=== PATIENT | female | born 1970 | race Caucasian/White ===

== ENCOUNTER → 2016-06-16 | Outpatient (CLI) | payer OTHER ==
--- NOTE | 2016-06-16 22:22 | MR ---
EXAMINATION TYPE: MR lumbar spine wo con DATE OF EXAM: 06/16/2016 7:26 PM COMPARISON: 12/07/2012 HISTORY: Low Back Pain TECHNIQUE: T1 and T2 axial and sagittal images of the lumbar spine are submitted. FINDINGS: There is no abnormal signal seen within the visualized spinal cord or paraspinal soft tissu es. Stable appearing renal cysts. Mild hydronephrosis not excluded in the left. Nonobstructing renal calculi not excluded and had been present by previous CT scan dated 12/22/2015. Posterior subcutaneous tissue suggests stable appearing small soft tissue lipoma. At L1-L2 no disc herniation or canal stenosis. No foraminal encroachment. L2-L3-there is now mild disc desiccation. Mild hypertrophic change of the facets. There is mild circu mferential disc bulging but no canal stenosis or foraminal encroachment.. L3-L4- Mild to moderate decreased signal and loss of height compatible with degenerative disc disease. No significant disc bulge/herniation or protrusion. No evidence for canal stenosis. Degenerative endplate marrow change is appreciated. Hypertrophic change of the facet joints bilateral foraminal encroachment. L4-L5- Mild to moderate decreased signal and loss of height compatible with degenerative disc disease. Small posterior annular tear without herniation. No disc protrusion or canal stenosis. Facet arthropathy joint arthropathy without foraminal encroachment. L5-S1- Moderate to severe decreased signal and loss of height compatible with degenerative disc disease. Disc bulging with mild effacement ventral thecal sac is stable. No evidence for canal stenosis or recess stenosis. Visualized foramina demonstrate mild bilateral foraminal encroachment.. Discogenic marrow changes secondary to severe degenerative disc disease. Facet arthropathy noted. IMPRESSION: 1. Multilevel degenerative disc disease with severe changes at L5-S1. 2. Multilevel facet arthropathy. 3. Bilateral renal axillae. 4. No disc herniation or canal stenosis at any of the visualized levels.
== END | disposition home or self-care (01) ==
LOC: RADMRIMAIN 18:45
PROVIDERS: ATTEND Nurse Practitioner Acute Care
DX: M54.5 Low back pain (principal); M51.36 Other intervertebral disc degeneration, lumbar region; M46.90 Unspecified inflammatory spondylopathy, site unspecified
CPT/HCPCS: 72148

== ENCOUNTER 2016-10-27 13:00 | Emergency (ER) | payer OTHER ==
[2016-10-27 13:06] VITALS: BP 120/70; PULSE 105; RESP 18; TEMP 98.3
--- NOTE | 2016-10-27 13:37 | ED ---
General Adult HPI - General Chief complaint: Back Pain/Injury Stated complaint: Low back pain Time Seen by Provider: 10/27/16 13:18 Source: patient, RN notes reviewed Mode of arrival: ambulatory Limitations: no limitations - History of Present Illness Initial comments: 46-year-old female who presents emergency room today with a chief complaint of increased tailbone pain. Patient does state that she had some symptoms which she had pilonidal cyst in the past. States she does not feel a bump or lump in the area. States been ongoing over the last month. Does admit to history of chronic back pain does admit that she had recent MRI. Denies any bowel or bladder incontinence retention. Denies any other complaints or symptoms. Does admit that it's worse when she sitting. States been using a pillow for comfort. - Related Data Home Medications Medication Instructions Recorded Confirmed Gabapentin [Neurontin] 300 mg PO QAM 10/18/13 04/03/16 Ibuprofen [Motrin] 800 mg PO Q8HR PRN 10/18/13 04/03/16 LORazepam [Ativan] 2 mg PO TID 10/18/13 04/03/16 Ranitidine HCl [Zantac] 150 mg PO BID 10/18/13 04/03/16 Simvastatin [Zocor] 40 mg PO HS 10/18/13 04/03/16 Lacosamide [Vimpat] 100 mg PO BID 01/16/14 04/03/16 Albuterol Inhaler [Ventolin Hfa 1 - 2 puff INHALATION RT-Q6H PRN 04/03/16 Inhaler] Beclomethasone Dipropionate [Qvar 2 puff INHALATION RT-BID 04/03/16 04/03/16 40 mcg] DULoxetine HCL [Cymbalta] 30 mg PO HS 04/03/16 04/03/16 Divalproex ER [Depakote ER] 1,000 mg PO HS 04/03/16 04/03/16 Divalproex ER [Depakote ER] 500 mg PO QAM 04/03/16 04/03/16 Fenofibrate 160 mg PO HS 04/03/16 04/03/16 Gabapentin [Neurontin] 600 mg PO HS 04/03/16 04/03/16 Hydrocodone/Acetaminophen [[place] 1 tab PO BID PRN 04/03/16 04/03/16 5-325] Insulin Detemir [Levemir] 136 unit SQ HS 04/03/16 04/03/16 Lisinopril-Hctz 10-12.5 mg 1 tab PO DAILY 04/03/16 04/03/16 [Zestoretic 10-12.5] Niacin [Niacin ER] 500 mg PO QAM PRN 04/03/16 04/03/16 Topiramate [Topamax] 200 mg PO BID 04/03/16 04/03/16 metFORMIN HCL [metFORMIN HCL ER] 1,000 mg PO BID 04/03/16 04/03/16 Allergies Allergy/AdvReac Type Severity Reaction Status Date / Time sulfamethoxazole Allergy Unknown Verified 10/27/16 13:06 [From Bactrim] trimethoprim [From Bactrim] Allergy Unknown Verified 10/27/16 13:06 metoclopramide HCl AdvReac Confusion Verified 10/27/16 13:06 [From Reglan] Review of Systems ROS Statement: Those systems with pertinent positive or pertinent negative responses have been documented in the HPI. ROS Other: All systems not noted in ROS Statement are negative. Past Medical History Past Medical History: Diabetes Mellitus, GERD/Reflux, Hyperlipidemia, Seizure Disorder Additional Past Medical History / Comment(s): neck, back pain, neuropathy, migraines History of Any Multi-Drug Resistant Organisms: None Reported Past Surgical History: Appendectomy, Tubal Ligation Past Psychological History: Depression Smoking Status: Current every day smoker Past Alcohol Use History: None Reported Past Drug Use History: None Reported General Exam - General Exam Comments Initial Comments: General: The patient is awake and alert, in no distress, and does not appear acutely ill. Eye: Pupils are equal, round and reactive to light, extra-ocular movements are intact. No nystagmus. There is normal conjunctiva bilaterally. No signs of icterus. Ears, nose, mouth and throat: There are moist mucous membranes and no oral lesions. Neck: The neck is supple, there is no tenderness or JVD. Cardiovascular: There is a regular rate and rhythm. No murmur, rub or gallop is appreciated. Respiratory: Lungs are clear to auscultation, respirations are non-labored, breath sounds are equal. No wheezes, stridor, rales, or rhonchi. Gastrointestinal: Soft, non-distended, non-tender abdomen without masses or organomegaly noted. There is no rebound or guarding present. No CVA tenderness. Bowel sounds are unremarkable. Musculoskeletal: Normal ROM, no tenderness. Strength 5/5. Sensation intact. Pulses equal bilaterally 2+. Neurological: A&O x 3. CN II-XII intact, There are no obvious motor or sensory deficits. Coordination appears grossly intact. Speech is normal. Skin: Skin is warm and dry and no rashes or lesions are noted. Psychiatric: Cooperative, appropriate mood & affect, normal judgment. : METAL TURNER cc present for exam. Normal external rectal exam no signs of pilonidal cyst. Limitations: no limitations Course Vital Signs 10/27/16 13:03 Temperature 98.3 F Pulse Rate 105 H Respiratory 18 Rate Blood Pressure 120/70 O2 Sat by Pulse 97 Oximetry Disposition Clinical Impression: Chronic back pain Disposition: HOME SELF-CARE Condition: Good Instructions: Chronic Back Pain (ED) Additional Instructions: Please use ice/heat to the area as discussed. Please continue with Starford/ ibuprofen as discussed. Please follow-up with your back specialist along with the family doctor. Please return to emergency room symptoms increase or worsen or for any other concerns. Referrals: Rhiannon Hsieh MD [Primary Care Provider] - 1-2 days Time of Disposition: 13:36
== END 2016-10-27 13:49 | disposition home or self-care (01) ==
LOC: EC 13:00
DX: M54.5 Low back pain (principal); G89.29 Other chronic pain; E78.5 Hyperlipidemia, unspecified; E11.40 Type 2 diabetes mellitus with diabetic neuropathy, unspecified; G40.909 Epilepsy, unspecified, not intractable, without status epilepticus; K21.9 Gastro-esophageal reflux disease without esophagitis; F32.9 Major depressive disorder, single episode, unspecified; F17.200 Nicotine dependence, unspecified, uncomplicated; Z88.2 Allergy status to sulfonamides; Z88.8 Allergy status to other drugs, medicaments and biological substances; Z79.4 Long term (current) use of insulin; Z79.51 Long term (current) use of inhaled steroids; Z79.84 Long term (current) use of oral hypoglycemic drugs; Z79.899 Other long term (current) drug therapy
CPT/HCPCS: 99283

== ENCOUNTER → 2016-11-04 | Outpatient (CLI) | payer OTHER | LOC: CPPFTMAIN 13:21 | PROVIDERS: ATTEND Family Medicine | DX: J45.909 Unspecified asthma, uncomplicated (principal) | CPT/HCPCS: 94060; 94726; 94729 ==

== ENCOUNTER → 2017-03-08 | Outpatient (CLI) | payer OTHER ==
--- NOTE | 2017-03-08 10:32 | NM ---
Nuclear medicine hepatobiliary scan. HISTORY: Pain. DOSAGE: The patient received 8 ounces of ensure plus and 5.2 mCi of Technetium 99m Choletec. FINDINGS: There is normal hepatic extraction. The gallbladder is seen by 25 minutes. There is bilia ry to bowel clearance by 20 minutes. Ejection fraction is 51%. IMPRESSION: 1. Normal hepatobiliary exam
== END | disposition home or self-care (01) ==
LOC: RADNMMAIN 07:03
PROVIDERS: ATTEND Family Medicine
DX: R10.11 Right upper quadrant pain (principal); Z88.2 Allergy status to sulfonamides; Z88.8 Allergy status to other drugs, medicaments and biological substances
CPT/HCPCS: 78226; A9537

== ENCOUNTER → 2017-08-01 | Outpatient (CLI) | payer OTHER ==
[2017-08-01 13:04] LABS: Anisocytosis Slight; Basophils # (A) 0.1 k/uL (0-0.2); Basophils % (A) 1 %; Eosinophils # (A) 0.5 k/uL (0-0.7); Eosinophils % (A) 4 %; HCT 38.1 % (34.0-46.0); HGB 12.1 gm/dL (11.4-16.0); Hypochromasia Slight; Lymphocytes # (A) 4.4 k/uL (1.0-4.8); Lymphocytes % (A) 34 %; MCH 24.9 pg (25.0-35.0); MCHC 31.8 g/dL (31.0-37.0); MCV 78.2 fL (80.0-100.0); Mean Platelet Volume 7.3; Microcytosis Slight; Monocytes # (A) 0.6 k/uL (0-1.0); Monocytes % (A) 5 %; Neutrophils # (A) 6.9 k/uL (1.3-7.7); Neutrophils % (A) 54 %; Platelet Count 348 k/uL (150-450); RBC 4.87 m/uL (3.80-5.40); RDW 16.1 % (11.5-15.5); WBC 12.9 k/uL (3.8-10.6)
[2017-08-01 13:16] LABS: ALT 21 U/L (9-52); AST 12 U/L (14-36); Albumin 3.7 g/dL (3.5-5.0); Alkaline Phosphatase 66 U/L (38-126); Anion Gap 14 mmol/L; Blood Urea Nitrogen 16 mg/dL (7-17); Calcium 9.6 mg/dL (8.4-10.2); Carbon Dioxide 24 mmol/L (22-30); Chloride 103 mmol/L (98-107); Cholesterol 161 mg/dL (<200); Glucose 112 mg/dL (74-99); HDL Cholesterol 33 mg/dL (40-60); LDL Cholesterol,Calculated 63 mg/dL (0-99); Potassium 4.2 mmol/L (3.5-5.1); Sodium 141 mmol/L (137-145); Total Bilirubin 0.2 mg/dL (0.2-1.3); Total Protein 6.9 g/dL (6.3-8.2); Triglycerides 325 mg/dL (<150)
== END | disposition home or self-care (01) ==
LOC: LABMAIN 12:27
PROVIDERS: ATTEND Family Medicine
DX: K21.9 Gastro-esophageal reflux disease without esophagitis (principal); I10 Essential (primary) hypertension; E11.9 Type 2 diabetes mellitus without complications; G40.89 Other seizures
CPT/HCPCS: 36415; 80053; 80061; 85025

== ENCOUNTER 2018-03-29 01:39 | Emergency (ER) | payer OTHER ==
[2018-03-29 01:44] VITALS: TEMP 97.9
[2018-03-29] MEDS ORDERED: diphenhydrAMINE 50 MG/ML 1 ML VIAL IVP STA (02:46)
[2018-03-29] MEDS ORDERED: KETOROLAC 30 MG/ML 1 ML VIAL IVP STA (02:46)
[2018-03-29] MEDS ORDERED: ONDANSETRON 4 MG/2 ML VIAL IVP STA (02:46)
--- NOTE | 2018-03-29 03:33 | ED ---
General Adult HPI - General Source: patient Mode of arrival: ambulatory Limitations: no limitations <Mariza Wren - Last Filed: 04/01/18 15:28> <Elizabeth Dowell - Last Filed: 04/07/18 00:30> - General Chief complaint: Headache Stated complaint: Migraine, nausea - History of Present Illness Initial comments: 48yo female with history of chronic migraines presenting today for cc of migraine on and off x 8 days. Pt states that about 8 days ago she began experiencing one her typical migraines, she states it last for a few days, she took excedrin on day 4 that her friend gave her and she states that this took the headache away. Pt states that 3 days later the headache returned and remains. She states when she gets migraines she often experiences nausea, photophobia and sensitivity to sounds. Admits to these symptoms today. Pt describes headache as 10/10 throbbing pain behind both eyes, stretching toward back of head. She states headache came on gradually, denies sudden on set, trauma to head/neck, or this being worst headache of life. Denies visual changes , neck stiffness, fever, chills or night sweats. Pt has not taken another other medications since excedrin. Upon triage pt admitted to vomiting, denied vomiting on history taking. Remainder of ROS (-). Pt appears uncomfortable, however nontoxic upon arrival. Ambulating without difficulty. (Mariza Wren) - Related Data Home Medications Medication Instructions Recorded Confirmed Gabapentin [Neurontin] 300 mg PO BID 10/18/13 04/04/18 Lacosamide [Vimpat] 100 mg PO BID 01/16/14 04/04/18 Albuterol Inhaler [Ventolin Hfa 1 - 2 puff INHALATION RT-Q6H PRN 04/03/16 Inhaler] Beclomethasone Dipropionate [Qvar 2 puff INHALATION RT-BID 04/03/16 04/04/18 40 mcg] DULoxetine HCL [Cymbalta] 90 mg PO HS 04/03/16 04/04/18 Divalproex ER [Depakote ER] 500 mg PO BID 04/03/16 04/04/18 Fenofibrate 160 mg PO HS 04/03/16 04/04/18 Furosemide [Lasix] 40 mg PO DAILY 04/04/18 04/04/18 Hydrocodone/Acetaminophen [[place] 1 tab PO Q8H PRN 04/04/18 04/04/18 10-325] Insulin Glargine [Lantus] 70 unit SQ BID 04/04/18 04/04/18 LORazepam [Ativan] 1 mg PO TID PRN 04/04/18 04/04/18 Omeprazole [PriLOSEC] 40 mg PO DAILY 04/04/18 04/04/18 Potassium Chloride [Klor-Con 10] 10 meq PO DAILY 04/04/18 04/04/18 SUMAtriptan SUCCINATE [Imitrex] 100 mg PO BID PRN MDD 200 MG 04/04/18 04/04/18 Topiramate [Topamax] 100 mg PO BID 04/04/18 04/04/18 glipiZIDE [Glucotrol] 20 mg PO AC-BID 04/04/18 04/04/18 hydrALAZINE HCL [Apresoline] 25 mg PO BID 04/04/18 04/04/18 metFORMIN HCL 1,000 mg PO BID 04/04/18 04/04/18 Allergies Allergy/AdvReac Type Severity Reaction Status Date / Time sulfamethoxazole Allergy Unknown Verified 04/04/18 07:08 [From Bactrim] trimethoprim [From Bactrim] Allergy Unknown Verified 04/04/18 07:08 metoclopramide HCl AdvReac Confusion Verified 04/04/18 07:08 [From Reglan] Review of Systems ROS Other: All systems not noted in ROS Statement are negative. Constitutional: Denies: fever, chills, night sweats Eyes: Denies: eye pain, vision change ENT: Denies: hearing loss Respiratory: Denies: cough, dyspnea, wheezes Cardiovascular: Denies: chest pain Gastrointestinal: Reports: nausea. Denies: abdominal pain, vomiting, diarrhea, constipation, hematemesis Genitourinary: Denies: urgency Musculoskeletal: Denies: back pain Skin: Denies: rash Neurological: Reports: headache. Denies: weakness, numbness, paresthesias, confusion <Mariza Wren L - Last Filed: 04/01/18 15:28> ROS Other: All systems not noted in ROS Statement are negative. <Elizabeth Dowell P - Last Filed: 04/07/18 00:30> ROS Statement: Those systems with pertinent positive or pertinent negative responses have been documented in the HPI. Past Medical History Past Medical History: Diabetes Mellitus, GERD/Reflux, Hyperlipidemia, Seizure Disorder Additional Past Medical History / Comment(s): neck, back pain, neuropathy, migraines History of Any Multi-Drug Resistant Organisms: None Reported Past Surgical History: Appendectomy, Tubal Ligation Past Psychological History: Depression Smoking Status: Current every day smoker Past Alcohol Use History: None Reported Past Drug Use History: None Reported <Mariza Wren L - Last Filed: 04/01/18 15:28> General Exam Limitations: no limitations <Mariza Wren L - Last Filed: 04/01/18 15:28> <Elizabeth Dowell P - Last Filed: 04/07/18 00:30> - General Exam Comments Initial Comments: General: The patient is awake and alert, in no distress, and does not appear acutely ill. Eye: +3 mm pupils are equal, round and reactive to light, extra-ocular movements are intact. No APD. No nystagmus. There is normal conjunctiva bilaterally. No signs of icterus. Ears, nose, mouth and throat: There are moist mucous membranes and no oral lesions. Neck: The neck is supple, there is no tenderness or JVD. (-) Brudskinski and Kernig signs, no nuchal rigidity. Cardiovascular: There is a regular rate and rhythm. No murmur, rub or gallop is appreciated. Respiratory: Lungs are clear to auscultation, respirations are non-labored, breath sounds are equal. No wheezes, stridor, rales, or rhonchi. Musculoskeletal: Normal ROM, no tenderness. Strength 5/5 of the UE and LE equally b/l. Sensation intact of the UE and LE equally b/l. Radial Pulses equal bilaterally 2+. Neurological: A&O x 3. CN II-XII intact, There are no obvious motor or sensory deficits. Coordination appears grossly intact. Pt ambulates without difficulty. Speech is normal. Hand flap and toe tap coordinated. No pronator drift. Finger to nose coordinated and smooth. Memory intact, immediate, intermediate and assisted. Skin: Skin is warm and dry and no rashes or lesions are noted. Psychiatric: Cooperative, appropriate mood & affect, normal judgment. (Mariza Wren) Course <Mariza Wren - Last Filed: 04/01/18 15:28> <Elizabeth Dowell - Last Filed: 04/07/18 00:30> Vital Signs 03/29/18 03/29/18 01:42 03:34 Temperature 97.9 F Pulse Rate 115 H 89 Respiratory 18 16 Rate Blood Pressure 152/84 111/74 O2 Sat by Pulse 98 96 Oximetry - Reevaluation(s) Reevaluation #1: Following treatment, pt state she is ready for discharge, headache 100% relieved. Pt expressing how thankful she is for relief. (Mariza Wren) Medical Decision Making <Mariza Wren - Last Filed: 04/01/18 15:28> <Elizabeth Dowell - Last Filed: 04/07/18 00:30> - Medical Decision Making No focal neurological deficits. Pt describes headache as similar in characteristic to chronic migraine. Onset gradual, no trauma. Denies worst headache of life. Pt given migraine cocktail. Upon reevaluation, pt states symptoms 100 relieved and requesting discharge. At this time I feel pt is stable for discharge,with primary care f/u. Pt state she has an appointment set up with her neurologist tmrw. I instructed her to keep appointment. Return parameters discussed at length with patient who verbalized understanding. Pt discharged in stable condition following discussion of case with attending provider, Dr. Dowell who agreed with impression and plan. (Mariza Wren) I was available for consultation in the emergency department. The history and physical exam were done by the midlevel provider. I was consulted for this patient's care. I reviewed the case with the midlevel provider and based on their presentation of the patient, I agree with the assessment, medical decision making and plan of care as documented. (Elizabeth Dowell) Disposition Is patient prescribed a controlled substance at d/c from ED?: No Time of Disposition: 03:33 <Mariza Wren - Last Filed: 04/01/18 15:28> <Elizabeth Dowell - Last Filed: 04/07/18 00:30> Clinical Impression: Migraine Disposition: HOME SELF-CARE Condition: Good Instructions: Acute Headache (ED) Additional Instructions: Please use medication as discussed. Please follow-up with family doctor in the next 2 days, and neurologist tmrw as scheduled. Please return to emergency room if the symptoms increase or worsen or for any other concerns. Referrals: Adriel Lima Jr, DO [Primary Care Provider] - 1-2 days Sia Siddiqui MD [STAFF PHYSICIAN] - 1-2 days
[2018-03-29 03:42] VITALS: BP 111/74; PULSE 89; RESP 16
== END 2018-03-29 03:35 | disposition home or self-care (01) ==
LOC: EC 01:39
DX: G43.909 Migraine, unspecified, not intractable, without status migrainosus (principal); E11.40 Type 2 diabetes mellitus with diabetic neuropathy, unspecified; K21.9 Gastro-esophageal reflux disease without esophagitis; E78.5 Hyperlipidemia, unspecified; G40.909 Epilepsy, unspecified, not intractable, without status epilepticus; F32.9 Major depressive disorder, single episode, unspecified; F17.200 Nicotine dependence, unspecified, uncomplicated; Z79.51 Long term (current) use of inhaled steroids; Z79.84 Long term (current) use of oral hypoglycemic drugs; Z79.899 Other long term (current) drug therapy; Z88.2 Allergy status to sulfonamides; Z88.8 Allergy status to other drugs, medicaments and biological substances
CPT/HCPCS: 99283; 96374; 96375 ×2; J1200; J2405; J1885

== ENCOUNTER 2018-04-02 05:49 | Emergency (ER) | payer OTHER ==
[2018-04-02 05:57] VITALS: RESP 20; TEMP 99.8
[2018-04-02] MEDS ORDERED: SODIUM CHLORIDE 0.9% 1,000 ML IV ONE (06:15)
[2018-04-02] MEDS ORDERED: ALBUTEROL NEBULIZED 2.5 MG/3 ML INHALATION STA (06:15)
--- NOTE | 2018-04-02 06:26 | ED ---
General Adult HPI - General Chief complaint: ENT Stated complaint: ENT-flu symptoms Time Seen by Provider: 04/02/18 06:09 Source: patient, family Mode of arrival: wheelchair Limitations: no limitations - History of Present Illness Initial comments: This patient is a 48-year-old woman who presents to be evaluated for complaint of dyspnea, cough, and not feeling well. The patient states symptoms have been coming on over the past day to 2. Cough is not productive. She has also felt hot and cold but has not taken her temperature. Onset/Timin -: days(s) Improves with: none Worsens with: none Associated Symptoms: cough, fever/chills, shortness of breath Treatments Prior to Arrival: none - Related Data Home Medications Medication Instructions Recorded Confirmed Gabapentin [Neurontin] 300 mg PO BID 10/18/13 04/04/18 Lacosamide [Vimpat] 100 mg PO BID 01/16/14 04/04/18 Beclomethasone Dipropionate [Qvar 2 puff INHALATION RT-BID 04/03/16 04/04/18 40 mcg] DULoxetine HCL [Cymbalta] 90 mg PO HS 04/03/16 04/04/18 Divalproex ER [Depakote ER] 500 mg PO BID 04/03/16 04/04/18 Fenofibrate 160 mg PO HS 04/03/16 04/04/18 Furosemide [Lasix] 40 mg PO DAILY 04/04/18 04/04/18 Hydrocodone/Acetaminophen [[place] 1 tab PO Q8H PRN 04/04/18 04/04/18 10-325] Insulin Glargine [Lantus] 70 unit SQ BID 04/04/18 04/04/18 LORazepam [Ativan] 1 mg PO TID PRN 04/04/18 04/04/18 Omeprazole [PriLOSEC] 40 mg PO DAILY 04/04/18 04/04/18 Potassium Chloride [Klor-Con 10] 10 meq PO DAILY 04/04/18 04/04/18 SUMAtriptan SUCCINATE [Imitrex] 100 mg PO BID PRN MDD 200 MG 04/04/18 04/04/18 Topiramate [Topamax] 100 mg PO BID 04/04/18 04/04/18 hydrALAZINE HCL [Apresoline] 25 mg PO BID 04/04/18 04/04/18 metFORMIN HCL 1,000 mg PO BID 04/04/18 04/04/18 Previous Rx's Medication Instructions Recorded Levofloxacin [Levaquin] 500 mg PO DAILY #7 tab 04/08/18 Oseltamivir [Tamiflu] 75 mg PO Q12HR #10 cap 04/08/18 Albuterol Inhaler [Ventolin Hfa 2 puff INHALATION RT-Q6H PRN #1 04/09/18 Inhaler] puff Atorvastatin [Lipitor] 80 mg PO HS #30 tab 04/09/18 Insulin Lispro [Admelog] 100 unit SQ ACHS #3 pen 04/09/18 Lisinopril-Hctz 10-12.5 mg 1 each PO DAILY #30 tab 04/09/18 [Zestoretic 10-12.5] guaiFENesin [Mucinex] 1,200 mg PO Q12HR #20 tablet.er 04/09/18 predniSONE 10 mg PO DAILY #55 tab 04/09/18 Allergies Allergy/AdvReac Type Severity Reaction Status Date / Time sulfamethoxazole Allergy Unknown Verified 04/04/18 07:08 [From Bactrim] trimethoprim [From Bactrim] Allergy Unknown Verified 04/04/18 07:08 metoclopramide HCl AdvReac Confusion Verified 04/04/18 07:08 [From Reglan] Review of Systems ROS Statement: Those systems with pertinent positive or pertinent negative responses have been documented in the HPI. ROS Other: All systems not noted in ROS Statement are negative. Constitutional: Denies: fever, chills Respiratory: Reports: cough. Denies: dyspnea, wheezes Cardiovascular: Denies: chest pain, palpitations, edema Gastrointestinal: Denies: abdominal pain, vomiting, diarrhea Genitourinary: Denies: dysuria, hematuria Musculoskeletal: Reports: myalgia. Denies: back pain Skin: Denies: rash Neurological: Denies: headache, weakness, numbness Past Medical History Past Medical History: Diabetes Mellitus, GERD/Reflux, Hyperlipidemia, Seizure Disorder Additional Past Medical History / Comment(s): neck, back pain, neuropathy, migraines History of Any Multi-Drug Resistant Organisms: None Reported Past Surgical History: Appendectomy, Tubal Ligation Past Psychological History: Depression Smoking Status: Current every day smoker Past Alcohol Use History: None Reported Past Drug Use History: None Reported General Exam Limitations: no limitations General appearance: alert, in no apparent distress Head exam: Present: atraumatic, normocephalic Eye exam: Present: normal appearance. Absent: scleral icterus, conjunctival injection ENT exam: Present: mucous membranes dry Neck exam: Present: normal inspection, full ROM. Absent: meningismus Respiratory exam: Present: wheezes. Absent: respiratory distress, rales, rhonchi, stridor Cardiovascular Exam: Present: normal rhythm, tachycardia, normal heart sounds. Absent: systolic murmur, diastolic murmur, rubs, gallop GI/Abdominal exam: Present: soft. Absent: distended, tenderness, guarding, rebound, rigid, mass Extremities exam: Present: normal inspection, normal capillary refill. Absent: pedal edema, calf tenderness Back exam: Present: normal inspection. Absent: CVA tenderness (R), CVA tenderness (L) Neurological exam: Present: alert Skin exam: Present: warm, dry, intact, normal color. Absent: rash Course Vital Signs 04/02/18 04/02/18 04/02/18 05:52 06:21 06:30 Temperature 99.8 F H Pulse Rate 120 H 112 H 114 H Respiratory 20 Rate Blood Pressure 123/79 O2 Sat by Pulse 97 Oximetry 04/02/18 11:02 Temperature 99.8 F H Pulse Rate 114 H Respiratory 20 Rate Blood Pressure 120/67 O2 Sat by Pulse 97 Oximetry EKG Findings - EKG Results: EKG: interpreted by ERMD, sinus rhythm, normal axis, normal QRS, normal ST/T, no acute changes EKG shows: tachycardia (Rate approximately 121 bpm) Medical Decision Making - Lab Data Result diagrams: 04/02/18 06:30 04/02/18 06:30 Lab Results 04/02/18 04/02/18 04/02/18 Range/Units 06:30 06:30 06:30 WBC 7.2 (3.8-10.6) k/uL RBC 5.31 (3.80-5.40) m/uL Hgb 12.8 (11.4-16.0) gm/dL Hct 40.5 (34.0-46.0) % MCV 76.3 L (80.0-100.0) fL MCH 24.1 L (25.0-35.0) pg MCHC 31.6 (31.0-37.0) g/dL RDW 17.1 H (11.5-15.5) % Plt Count 189 (150-450) k/uL Neutrophils % 76 % Lymphocytes % 16 % Monocytes % 5 % Eosinophils % 0 % Basophils % 0 % Neutrophils # 5.5 (1.3-7.7) k/uL Lymphocytes # 1.2 (1.0-4.8) k/uL Monocytes # 0.4 (0-1.0) k/uL Eosinophils # 0.0 (0-0.7) k/uL Basophils # 0.0 (0-0.2) k/uL Hypochromasia Slight Anisocytosis Slight Microcytosis Slight PT (9.0-12.0) sec INR (<1.2) APTT (22.0-30.0) sec Sodium 133 L (137-145) mmol/L Potassium 3.9 (3.5-5.1) mmol/L Chloride 102 (98-107) mmol/L Carbon Dioxide 18 L (22-30) mmol/L Anion Gap 13 mmol/L BUN 14 (7-17) mg/dL Creatinine 0.73 (0.52-1.04) mg/dL Est GFR (CKD-EPI)AfAm >90 (>60 ml/min/1.73 sqM) Est GFR (CKD-EPI)NonAf >90 (>60 ml/min/1.73 sqM) Glucose 237 H (74-99) mg/dL POC Glucose (mg/dL) (75-99) mg/dL POC Glu [employer] ID Plasma Lactic Acid Lobo (0.7-2.0) mmol/L Calcium 8.6 (8.4-10.2) mg/dL Total Bilirubin 0.3 (0.2-1.3) mg/dL AST 53 H (14-36) U/L ALT 38 (9-52) U/L Alkaline Phosphatase 79 (38-126) U/L Troponin I (0.000-0.034) ng/mL Total Protein 6.9 (6.3-8.2) g/dL Albumin 3.7 (3.5-5.0) g/dL Valproic Acid 25.7 ug/mL Acetone, Qual Positive (Negative) Influenza Type A RNA (Not Detectd) Influenza Type B (PCR) (Not Detectd) 04/02/18 04/02/18 04/02/18 Range/Units 06:30 06:30 06:30 WBC (3.8-10.6) k/uL RBC (3.80-5.40) m/uL Hgb (11.4-16.0) gm/dL Hct (34.0-46.0) % MCV (80.0-100.0) fL MCH (25.0-35.0) pg MCHC (31.0-37.0) g/dL RDW (11.5-15.5) % Plt Count (150-450) k/uL Neutrophils % % Lymphocytes % % Monocytes % % Eosinophils % % Basophils % % Neutrophils # (1.3-7.7) k/uL Lymphocytes # (1.0-4.8) k/uL Monocytes # (0-1.0) k/uL Eosinophils # (0-0.7) k/uL Basophils # (0-0.2) k/uL Hypochromasia Anisocytosis Microcytosis PT 10.2 (9.0-12.0) sec INR 0.9 (<1.2) APTT 29.7 (22.0-30.0) sec Sodium (137-145) mmol/L Potassium (3.5-5.1) mmol/L Chloride (98-107) mmol/L Carbon Dioxide (22-30) mmol/L Anion Gap mmol/L BUN (7-17) mg/dL Creatinine (0.52-1.04) mg/dL Est GFR (CKD-EPI)AfAm (>60 ml/min/1.73 sqM) Est GFR (CKD-EPI)NonAf (>60 ml/min/1.73 sqM) Glucose (74-99) mg/dL POC Glucose (mg/dL) (75-99) mg/dL POC Glu [employer] ID Plasma Lactic Acid Lobo 1.2 (0.7-2.0) mmol/L Calcium (8.4-10.2) mg/dL Total Bilirubin (0.2-1.3) mg/dL AST (14-36) U/L ALT (9-52) U/L Alkaline Phosphatase (38-126) U/L Troponin I <0.012 (0.000-0.034) ng/mL Total Protein (6.3-8.2) g/dL Albumin (3.5-5.0) g/dL Valproic Acid ug/mL Acetone, Qual (Negative) Influenza Type A RNA (Not Detectd) Influenza Type B (PCR) (Not Detectd) 04/02/18 04/02/18 Range/Units 06:30 09:08 WBC (3.8-10.6) k/uL RBC (3.80-5.40) m/uL Hgb (11.4-16.0) gm/dL Hct (34.0-46.0) % MCV (80.0-100.0) fL MCH (25.0-35.0) pg MCHC (31.0-37.0) g/dL RDW (11.5-15.5) % Plt Count (150-450) k/uL Neutrophils % % Lymphocytes % % Monocytes % % Eosinophils % % Basophils % % Neutrophils # (1.3-7.7) k/uL Lymphocytes # (1.0-4.8) k/uL Monocytes # (0-1.0) k/uL Eosinophils # (0-0.7) k/uL Basophils # (0-0.2) k/uL Hypochromasia Anisocytosis Microcytosis PT (9.0-12.0) sec INR (<1.2) APTT (22.0-30.0) sec Sodium (137-145) mmol/L Potassium (3.5-5.1) mmol/L Chloride (98-107) mmol/L Carbon Dioxide (22-30) mmol/L Anion Gap mmol/L BUN (7-17) mg/dL Creatinine (0.52-1.04) mg/dL Est GFR (CKD-EPI)AfAm (>60 ml/min/1.73 sqM) Est GFR (CKD-EPI)NonAf (>60 ml/min/1.73 sqM) Glucose (74-99) mg/dL POC Glucose (mg/dL) 193 H (75-99) mg/dL POC Glu [employer] ID [place] Plasma Lactic Acid Lobo (0.7-2.0) mmol/L Calcium (8.4-10.2) mg/dL Total Bilirubin (0.2-1.3) mg/dL AST (14-36) U/L ALT (9-52) U/L Alkaline Phosphatase (38-126) U/L Troponin I (0.000-0.034) ng/mL Total Protein (6.3-8.2) g/dL Albumin (3.5-5.0) g/dL Valproic Acid ug/mL Acetone, Qual (Negative) Influenza Type A RNA Detected H (Not Detectd) Influenza Type B (PCR) Not Detected (Not Detectd) Disposition Clinical Impression: Influenza A, Upper respiratory infection Disposition: HOME SELF-CARE Condition: Stable Instructions: Upper Respiratory Infection (ED), Viral Syndrome (ED) Is patient prescribed a controlled substance at d/c from ED?: No Referrals: Adriel Lima Jr, [Primary Care Provider] - 1-2 days
[2018-04-02 06:30] VITALS: PULSE 114
[2018-04-02 07:03] LABS: Anisocytosis Slight; Basophils % (A) 0 %; Eosinophils % (A) 0 %; HCT 40.5 % (34.0-46.0); HGB 12.8 gm/dL (11.4-16.0); Hypochromasia Slight; Lymphocytes # (A) 1.2 k/uL (1.0-4.8); Lymphocytes % (A) 16 %; MCH 24.1 pg (25.0-35.0); MCHC 31.6 g/dL (31.0-37.0); MCV 76.3 fL (80.0-100.0); Mean Platelet Volume 7.3; Microcytosis Slight; Monocytes # (A) 0.4 k/uL (0-1.0); Monocytes % (A) 5 %; Neutrophils # (A) 5.5 k/uL (1.3-7.7); Neutrophils % (A) 76 %; Platelet Count 189 k/uL (150-450); RBC 5.31 m/uL (3.80-5.40); RDW 17.1 % (11.5-15.5); WBC 7.2 k/uL (3.8-10.6)
--- NOTE | 2018-04-02 07:05 | XR ---
EXAMINATION TYPE: XR chest 1V portable DATE OF EXAM: 04/02/2018 COMPARISON: 02/05/2015 HISTORY: Fever TECHNIQUE: Single frontal view of the chest is obtained. FINDINGS: There is diffuse pulmonary interstitial infiltrate. Heart is enlarged. Ossific angles are clear. There are chest leads. The bony thorax is intact. IMPRESSION: No pulmonary interstitial density compared to old exam. This could be acute interstitial pneumonia. Mild acute heart failure is possible.
[2018-04-02 07:11] LABS: ALT 38 U/L (9-52); AST 53 U/L (14-36); Albumin 3.7 g/dL (3.5-5.0); Alkaline Phosphatase 79 U/L (38-126); Anion Gap 13 mmol/L; Blood Urea Nitrogen 14 mg/dL (7-17); Calcium 8.6 mg/dL (8.4-10.2); Carbon Dioxide 18 mmol/L (22-30); Chloride 102 mmol/L (98-107); Glucose 237 mg/dL (74-99); Potassium 3.9 mmol/L (3.5-5.1); Sodium 133 mmol/L (137-145); Total Bilirubin 0.3 mg/dL (0.2-1.3); Total Protein 6.9 g/dL (6.3-8.2)
[2018-04-02 07:13] LABS: INR 0.9 (<1.2); Partial Thromboplastin Time 29.7 sec (22.0-30.0); Prothrombin Time 10.2 sec (9.0-12.0)
[2018-04-02 07:16] LABS: Valproic Acid (Depakene) 25.7 ug/mL
[2018-04-02] MEDS ORDERED: INSULIN REGULAR 100 UNIT/ML VIAL SQ STA (07:23)
[2018-04-02 09:09] LABS: Glucose,Whole Blood 193 mg/dL (75-99)
[2018-04-02 11:04] VITALS: BP 120/67
== END 2018-04-02 11:02 | disposition home or self-care (01) ==
LOC: EC 05:49
DX: J10.1 Influenza due to other identified influenza virus with other respiratory manifestations (principal); K21.9 Gastro-esophageal reflux disease without esophagitis; E78.5 Hyperlipidemia, unspecified; E11.40 Type 2 diabetes mellitus with diabetic neuropathy, unspecified; G40.909 Epilepsy, unspecified, not intractable, without status epilepticus; G43.909 Migraine, unspecified, not intractable, without status migrainosus; F32.9 Major depressive disorder, single episode, unspecified; F17.200 Nicotine dependence, unspecified, uncomplicated; Z79.4 Long term (current) use of insulin; Z79.51 Long term (current) use of inhaled steroids; Z79.899 Other long term (current) drug therapy; Z88.2 Allergy status to sulfonamides; Z88.8 Allergy status to other drugs, medicaments and biological substances
CPT/HCPCS: 36415; 71045; 80053; 80164; 82009; 83605; 84484; 85025; 85610; 85730; 87040; 87502; 93005; 94640; 96360; 96361; 99285

== ENCOUNTER 2018-04-04 06:38 | Inpatient (IN) | payer OTHER ==
[2018-04-04] MEDS ORDERED: SODIUM CHLORIDE 0.9% 1,000 ML IV STA (07:11)
[2018-04-04] MEDS ORDERED: IPRATROPIUM-ALBUTEROL 3 ML NEB INHALATION STA (07:12)
[2018-04-04] MEDS ORDERED: ACETAMINOPHEN TAB 500 MG TAB PO STA (07:18)
--- NOTE | 2018-04-04 07:18 | ED ---
Pediatric SOB HPI - General Chief Complaint: Shortness of Breath Stated Complaint: flu Time Seen by Provider: 04/04/18 07:04 Source: patient, EMS, old records reviewed Mode of arrival: EMS Limitations: no limitations - History of Present Illness Initial Comments: 48-year-old female presents emergency department via EMS chief complaint of not feeling well. Patient was seen here a few days prior was diagnosed with influenza. Patient states she has not taken her medications since being discharged. She states she is too ill to take care of herself. Patient has a known diabetic states that she has not checked her blood sugar recently. Patient states that she has fever, cough, shortness of breath, nausea vomiting. Patient is repeatedly asking for water states that she is thirsty states that she has not been able to get up and get herself anything to drink. Patient denies ear pain, sore throat, chest pain. Patient is a smoker. She states that she quit a few weeks ago. - Related Data Home Medications Medication Instructions Recorded Confirmed Gabapentin [Neurontin] 300 mg PO BID 10/18/13 04/04/18 Lacosamide [Vimpat] 100 mg PO BID 01/16/14 04/04/18 Albuterol Inhaler [Ventolin Hfa 1 - 2 puff INHALATION RT-Q6H PRN 04/03/16 Inhaler] Beclomethasone Dipropionate [Qvar 2 puff INHALATION RT-BID 04/03/16 04/04/18 40 mcg] DULoxetine HCL [Cymbalta] 90 mg PO HS 04/03/16 04/04/18 Divalproex ER [Depakote ER] 500 mg PO BID 04/03/16 04/04/18 Fenofibrate 160 mg PO HS 04/03/16 04/04/18 Lisinopril-Hctz 10-12.5 mg 1 tab PO DAILY 04/03/16 04/04/18 [Zestoretic 10-12.5] Atorvastatin Calcium [Lipitor] 80 mg PO HS 04/04/18 04/04/18 Furosemide [Lasix] 40 mg PO DAILY 04/04/18 04/04/18 Hydrocodone/Acetaminophen [[place] 1 tab PO Q8H PRN 04/04/18 04/04/18 10-325] Insulin Glargine [Lantus] 70 unit SQ BID 04/04/18 04/04/18 LORazepam [Ativan] 1 mg PO TID PRN 04/04/18 04/04/18 Omeprazole [PriLOSEC] 40 mg PO DAILY 04/04/18 04/04/18 Potassium Chloride [Klor-Con 10] 10 meq PO DAILY 04/04/18 04/04/18 SUMAtriptan SUCCINATE [Imitrex] 100 mg PO BID PRN MDD 200 MG 04/04/18 04/04/18 Topiramate [Topamax] 100 mg PO BID 04/04/18 04/04/18 glipiZIDE [Glucotrol] 20 mg PO AC-BID 04/04/18 04/04/18 hydrALAZINE HCL [Apresoline] 25 mg PO BID 04/04/18 04/04/18 metFORMIN HCL 1,000 mg PO BID 04/04/18 04/04/18 Allergies Allergy/AdvReac Type Severity Reaction Status Date / Time sulfamethoxazole Allergy Unknown Verified 04/04/18 07:08 [From Bactrim] trimethoprim [From Bactrim] Allergy Unknown Verified 04/04/18 07:08 metoclopramide HCl AdvReac Confusion Verified 04/04/18 07:08 [From Reglan] Review of Systems ROS Statement: Those systems with pertinent positive or pertinent negative responses have been documented in the HPI. ROS Other: All systems not noted in ROS Statement are negative. Past Medical History Past Medical History: Diabetes Mellitus, GERD/Reflux, Hyperlipidemia, Seizure Disorder Additional Past Medical History / Comment(s): neck, back pain, neuropathy, migraines History of Any Multi-Drug Resistant Organisms: None Reported Past Surgical History: Appendectomy, Tubal Ligation Past Psychological History: Depression Smoking Status: Former smoker Past Alcohol Use History: None Reported Past Drug Use History: None Reported General Exam Limitations: no limitations General appearance: alert, in no apparent distress Head exam: Present: atraumatic, normocephalic, normal inspection Eye exam: Present: normal appearance, PERRL, EOMI. Absent: scleral icterus, conjunctival injection, periorbital swelling ENT exam: Present: normal exam, normal oropharynx, mucous membranes moist, TM's normal bilaterally, normal external ear exam Neck exam: Present: normal inspection, full ROM. Absent: tenderness, meningismus, lymphadenopathy Respiratory exam: Present: wheezes, rhonchi. Absent: normal lung sounds bilaterally, respiratory distress, rales, stridor Cardiovascular Exam: Present: normal rhythm, tachycardia, normal heart sounds. Absent: systolic murmur, diastolic murmur, rubs, gallop, clicks GI/Abdominal exam: Present: soft, normal bowel sounds. Absent: distended, tenderness, guarding, rebound, rigid Neurological exam: Present: alert, oriented X3 Course Vital Signs 04/04/18 04/04/18 04/04/18 06:46 07:04 07:28 Temperature 100.4 F H Pulse Rate 115 H 112 H Respiratory 24 Rate Blood Pressure 124/83 O2 Sat by Pulse 88 L 93 L Oximetry 04/04/18 07:42 Temperature Pulse Rate 108 H Respiratory Rate Blood Pressure O2 Sat by Pulse Oximetry Medical Decision Making - Medical Decision Making 48-year-old female presented for increased cough congestion shortness breath fever. Patient has influenza, bilateral pneumonia uncontrolled diabetes secondary to noncompliance with medications. Patient was hydrated 2 L of fluid , patient was started on Levaquin for her pneumonia. Patient will be admitted for IV antibiotics, antivirals, IV hydration, insulin control for diabetes. - Lab Data Result diagrams: 04/04/18 08:05 04/04/18 08:05 Lab Results 04/04/18 04/04/18 04/04/18 Range/Units 08:00 08:05 08:05 WBC 5.3 (3.8-10.6) k/uL RBC 5.26 (3.80-5.40) m/uL Hgb 12.7 (11.4-16.0) gm/dL Hct 39.1 (34.0-46.0) % MCV 74.2 L (80.0-100.0) fL MCH 24.1 L (25.0-35.0) pg MCHC 32.4 (31.0-37.0) g/dL RDW 16.9 H (11.5-15.5) % Plt Count 173 (150-450) k/uL Neutrophils % 68 % Lymphocytes % 27 % Monocytes % 3 % Eosinophils % 0 % Basophils % 0 % Neutrophils # 3.6 (1.3-7.7) k/uL Lymphocytes # 1.4 (1.0-4.8) k/uL Monocytes # 0.2 (0-1.0) k/uL Eosinophils # 0.0 (0-0.7) k/uL Basophils # 0.0 (0-0.2) k/uL Hypochromasia Slight Anisocytosis Slight Microcytosis Moderate Sodium 129 L (137-145) mmol/L Potassium 3.4 L (3.5-5.1) mmol/L Chloride 93 L (98-107) mmol/L Carbon Dioxide 20 L (22-30) mmol/L Anion Gap 16 mmol/L BUN 10 (7-17) mg/dL Creatinine 0.68 (0.52-1.04) mg/dL Est GFR (CKD-EPI)AfAm >90 (>60 ml/min/1.73 sqM) Est GFR (CKD-EPI)NonAf >90 (>60 ml/min/1.73 sqM) Glucose 232 H (74-99) mg/dL POC Glucose (mg/dL) 268 H (75-99) mg/dL POC Glu [employer] ID Avani Rhiannon Plasma Lactic Acid Lobo (0.7-2.0) mmol/L Calcium 8.1 L (8.4-10.2) mg/dL Magnesium 1.8 (1.6-2.3) mg/dL Total Bilirubin 0.4 (0.2-1.3) mg/dL AST 52 H (14-36) U/L ALT 26 (9-52) U/L Alkaline Phosphatase 71 (38-126) U/L Total Protein 6.3 (6.3-8.2) g/dL Albumin 3.3 L (3.5-5.0) g/dL Acetone, Qual Positive (Negative) 04/04/18 Range/Units 08:05 WBC (3.8-10.6) k/uL RBC (3.80-5.40) m/uL Hgb (11.4-16.0) gm/dL Hct (34.0-46.0) % MCV (80.0-100.0) fL MCH (25.0-35.0) pg MCHC (31.0-37.0) g/dL RDW (11.5-15.5) % Plt Count (150-450) k/uL Neutrophils % % Lymphocytes % % Monocytes % % Eosinophils % % Basophils % % Neutrophils # (1.3-7.7) k/uL Lymphocytes # (1.0-4.8) k/uL Monocytes # (0-1.0) k/uL Eosinophils # (0-0.7) k/uL Basophils # (0-0.2) k/uL Hypochromasia Anisocytosis Microcytosis Sodium (137-145) mmol/L Potassium (3.5-5.1) mmol/L Chloride (98-107) mmol/L Carbon Dioxide (22-30) mmol/L Anion Gap mmol/L BUN (7-17) mg/dL Creatinine (0.52-1.04) mg/dL Est GFR (CKD-EPI)AfAm (>60 ml/min/1.73 sqM) Est GFR (CKD-EPI)NonAf (>60 ml/min/1.73 sqM) Glucose (74-99) mg/dL POC Glucose (mg/dL) (75-99) mg/dL POC Glu [employer] ID Plasma Lactic Acid Lobo 1.7 (0.7-2.0) mmol/L Calcium (8.4-10.2) mg/dL Magnesium (1.6-2.3) mg/dL Total Bilirubin (0.2-1.3) mg/dL AST (14-36) U/L ALT (9-52) U/L Alkaline Phosphatase (38-126) U/L Total Protein (6.3-8.2) g/dL Albumin (3.5-5.0) g/dL Acetone, Qual (Negative) - EKG Data EKG Comments: EKG performed at 8:32 normal sinus rhythm with prolonged QT, rate of 96 [place] 142 QRS 98 QT/QTC 386/47 Disposition Clinical Impression: Influenza A, Pneumonia, Noncompliance with medications, Uncontrolled diabetes mellitus Disposition: ADMITTED IP TO THIS HOSP Condition: Fair Referrals: Adriel Lima Jr, [Primary Care Provider] - 1-2 days
[2018-04-04 08:18] LABS: Anisocytosis Slight; Basophils % (A) 0 %; Eosinophils % (A) 0 %; HCT 39.1 % (34.0-46.0); HGB 12.7 gm/dL (11.4-16.0); Hypochromasia Slight; Lymphocytes # (A) 1.4 k/uL (1.0-4.8); Lymphocytes % (A) 27 %; MCH 24.1 pg (25.0-35.0); MCHC 32.4 g/dL (31.0-37.0); MCV 74.2 fL (80.0-100.0); Mean Platelet Volume 7.5; Microcytosis Moderate; Monocytes # (A) 0.2 k/uL (0-1.0); Monocytes % (A) 3 %; Neutrophils # (A) 3.6 k/uL (1.3-7.7); Neutrophils % (A) 68 %; Platelet Count 173 k/uL (150-450); RBC 5.26 m/uL (3.80-5.40); RDW 16.9 % (11.5-15.5); WBC 5.3 k/uL (3.8-10.6)
[2018-04-04 08:19] LABS: Glucose,Whole Blood 268 mg/dL (75-99)
[2018-04-04] MEDS ORDERED: DIVALPROEX ER 500 MG TAB.ER.24H PO STA (08:25)
[2018-04-04] MEDS ORDERED: LACOSAMIDE 50 MG TABLET PO STA (08:25)
[2018-04-04 08:36] LABS: ALT 26 U/L (9-52); AST 52 U/L (14-36); Albumin 3.3 g/dL (3.5-5.0); Alkaline Phosphatase 71 U/L (38-126); Anion Gap 16 mmol/L; Blood Urea Nitrogen 10 mg/dL (7-17); Calcium 8.1 mg/dL (8.4-10.2); Carbon Dioxide 20 mmol/L (22-30); Chloride 93 mmol/L (98-107); Glucose 232 mg/dL (74-99); Magnesium 1.8 mg/dL (1.6-2.3); Potassium 3.4 mmol/L (3.5-5.1); Sodium 129 mmol/L (137-145); Total Bilirubin 0.4 mg/dL (0.2-1.3); Total Protein 6.3 g/dL (6.3-8.2)
--- NOTE | 2018-04-04 08:37 | XR ---
EXAMINATION TYPE: XR chest 2V DATE OF EXAM: 04/04/2018 COMPARISON: 04/02/2018 TECHNIQUE: PA and lateral views submitted. HISTORY: Fever FINDINGS: Bilateral airspace disease with small effusions. No pneumothorax. Heart size stable. IMPRESSION: 1. Bilateral diffuse airspace disease correlate for pneumonia, opportunistic infection, ARDS or CHF.
[2018-04-04] MEDS ORDERED: LEVOFLOXACIN 750MG-D5W PMX 750 MG in DEXTROSE/WATER 1 150ML.BAG IVPB STA (09:04)
[2018-04-04] MEDS ORDERED: OSELTAMIVIR 75 MG CAP PO STA (09:25)
[2018-04-04] MEDS ORDERED: PNEUMONIA PROTOCOL UTILIZED 1 EACH MISC PO PRN (09:49)
[2018-04-04 10:05] LABS: Appearance,Urine Clear (Clear); Bacteria,Urine Occasional /hpf; Bilirubin,Urine Negative (Negative); Blood,Urine Moderate (Negative); Color,Urine Yellow; Glucose,Urine (UA) 4+ (Negative); Leukocyte Esterase,Urine Negative (Negative); Mucus,Urine Rare /hpf; Nitrite,Urine Negative (Negative); Protein,Urine Trace (Negative); RBC,Urine 38 /hpf (0-5); Specific Gravity,Urine 1.011 (1.001-1.035); Squamous Epithelial Cell,Urine 1 /hpf (0-4); Urobilinogen,Urine <2.0 mg/dL (<2.0); WBC,Urine 2 /hpf (0-5)
[2018-04-04 10:50] LABS: Ketones,Urine 2+ (Negative)
[2018-04-04] MEDS: SODIUM CHLORIDE 0.9% 1,000 ML IV SCH ×2 (11:52→20:46)
[2018-04-04 13:49] LABS: Glucose,Whole Blood 207 mg/dL (75-99)
[2018-04-04] MEDS: INSULIN ASPART 100 UNIT/ML 1 ML 10 ML VIAL SQ SCH ×3 (13:52→21:19)
[2018-04-04] MEDS ORDERED: LORazepam 1 MG TAB PO PRN (14:35)
[2018-04-04] MEDS ORDERED: SUMAtriptan SUCCINATE 50 MG TAB PO PRN (14:35)
[2018-04-04] MEDS: IPRATROPIUM-ALBUTEROL 3 ML NEB INHALATION SCH ×2 (15:19→19:57)
[2018-04-04 17:42] LABS: Glucose,Whole Blood 222 mg/dL (75-99)
[2018-04-04] MEDS: glipiZIDE 10 MG TAB PO SCH (17:44)
[2018-04-04] MEDS: LACOSAMIDE 50 MG TABLET PO SCH (20:45)
[2018-04-04] MEDS: HYDROcodone/APAP 10-325MG 1 EACH TAB PO PRN (20:45)
[2018-04-04] MEDS: ATORVASTATIN 80 MG TAB PO SCH (20:46)
[2018-04-04] MEDS: GABAPENTIN 300 MG CAP PO SCH (20:46)
[2018-04-04] MEDS: DIVALPROEX ER 500 MG TAB.ER.24H PO SCH (20:46)
[2018-04-04] MEDS: hydrALAZINE HCL 25 MG TAB PO SCH (20:46)
[2018-04-04] MEDS: FENOFIBRATE 160 MG TAB PO SCH (20:46)
[2018-04-04] MEDS: DULoxetine HCL 30 MG CAPSULE.DR PO SCH (20:46)
[2018-04-04] MEDS: TOPIRAMATE 100 MG TAB PO SCH (20:47)
[2018-04-04] MEDS: OSELTAMIVIR 75 MG CAP PO SCH (20:49)
[2018-04-04 21:05] LABS: Glucose,Whole Blood 265 mg/dL (75-99)
[2018-04-04] MEDS: INSULIN DETEMIR 100 UNIT/ML 10 ML VIAL SQ SCH (21:18)
[2018-04-05] MEDS: SODIUM CHLORIDE 0.9% 1,000 ML IV SCH ×2 (06:19→15:02)
[2018-04-05 07:51] LABS: Glucose,Whole Blood 151 mg/dL (75-99)
[2018-04-05] MEDS: glipiZIDE 10 MG TAB PO SCH ×2 (07:53→17:16)
[2018-04-05] MEDS: INSULIN ASPART 100 UNIT/ML 1 ML 10 ML VIAL SQ SCH ×4 (07:54→21:55)
[2018-04-05] MEDS: PANTOPRAZOLE 40 MG TABLET PO SCH (07:54)
[2018-04-05] MEDS: GABAPENTIN 300 MG CAP PO SCH ×2 (07:55→20:21)
[2018-04-05] MEDS: DIVALPROEX ER 500 MG TAB.ER.24H PO SCH ×2 (07:55→20:22)
[2018-04-05] MEDS: hydrALAZINE HCL 25 MG TAB PO SCH ×2 (07:55→20:22)
[2018-04-05] MEDS: LISINOPRIL-HCTZ 10-12.5 MG 1 EACH TAB PO SCH (07:56)
[2018-04-05] MEDS: INSULIN DETEMIR 100 UNIT/ML 10 ML VIAL SQ SCH ×2 (07:56→22:52)
[2018-04-05] MEDS: OSELTAMIVIR 75 MG CAP PO SCH ×2 (07:57→20:22)
[2018-04-05] MEDS: TOPIRAMATE 100 MG TAB PO SCH ×2 (07:57→20:22)
[2018-04-05] MEDS: POTASSIUM CHLORIDE ER 10 MEQ TAB.ER.PRT PO SCH (07:57)
--- NOTE | 2018-04-05 08:44 | XR ---
EXAMINATION TYPE: XR chest 2V DATE OF EXAM: 04/05/2018 COMPARISON: Prior chest x-ray 04/04/2018 HISTORY: Pneumonia TECHNIQUE: Frontal and lateral views of the chest are obtained. FINDINGS: Bilateral airspace disease persists. There is no evident pneumothorax or pleural effusion. Heart size is stable. IMPRESSION: Correlate for pneumonia, pulmonary edema, follow-up recommended.
[2018-04-05] MEDS: IPRATROPIUM-ALBUTEROL 3 ML NEB INHALATION SCH ×4 (09:08→19:23)
[2018-04-05 09:24] LABS: ALT 26 U/L (9-52); AST 51 U/L (14-36); Alkaline Phosphatase 69 U/L (38-126); Anion Gap 9 mmol/L; Blood Urea Nitrogen 9 mg/dL (7-17); Calcium 8.3 mg/dL (8.4-10.2); Carbon Dioxide 28 mmol/L (22-30); Chloride 100 mmol/L (98-107); Glucose 138 mg/dL (74-99); Potassium 3.5 mmol/L (3.5-5.1); Sodium 137 mmol/L (137-145); Total Bilirubin 0.3 mg/dL (0.2-1.3)
[2018-04-05] MEDS: LACOSAMIDE 50 MG TABLET PO SCH ×2 (09:24→22:51)
[2018-04-05 09:27] LABS: Anisocytosis Slight; Basophils % (A) 0 %; Eosinophils % (A) 0 %; HCT 36.6 % (34.0-46.0); HGB 11.7 gm/dL (11.4-16.0); Hypochromasia Slight; Lymphocytes # (A) 1.6 k/uL (1.0-4.8); Lymphocytes % (A) 26 %; MCH 23.6 pg (25.0-35.0); MCHC 31.9 g/dL (31.0-37.0); MCV 74.2 fL (80.0-100.0); Mean Platelet Volume 7.8; Microcytosis Moderate; Monocytes # (A) 0.2 k/uL (0-1.0); Monocytes % (A) 3 %; Neutrophils # (A) 4.2 k/uL (1.3-7.7); Neutrophils % (A) 68 %; Platelet Count 208 k/uL (150-450); Poikilocytosis Slight; RBC 4.93 m/uL (3.80-5.40); RDW 16.8 % (11.5-15.5); WBC 6.2 k/uL (3.8-10.6)
[2018-04-05] MEDS ORDERED: LEVOFLOXACIN 750MG-D5W PMX 750 MG in DEXTROSE/WATER 1 150ML.BAG IVPB SCH (10:00)
[2018-04-05] MEDS ORDERED: BUDESONIDE 1 MG/2 ML NEBU INHALATION STA (10:26)
[2018-04-05 12:40] LABS: Glucose,Whole Blood 171 mg/dL (75-99)
[2018-04-05 14:09] LABS: ABG Base Excess 1.6 mmol/L; ABG HCO3 25 mmol/L (21-25); ABG Oxygen Saturation 90.1 % (94-97); ABG PCO2 36 mmHg (35-45); ABG PH 7.45 (7.35-7.45)
[2018-04-05 14:13] LABS: ABG PO2 56 mmHg (83-108)
[2018-04-05] MEDS ORDERED: FUROSEMIDE 10 MG/ML 2 ML VIAL IV ONE (14:28)
[2018-04-05] MEDS: HEPARIN SODIUM,PORCINE 5,000 UNIT/ML 1 ML VIAL SQ SCH ×2 (15:02→22:53)
[2018-04-05] MEDS ORDERED: VANCOMYCIN IV PER PHARMACY 1 EACH MISC MISCELLANE PRN (15:04)
--- NOTE | 2018-04-05 15:25 | P.CNPUL ---
History of Present Illness Consult date: 04/05/18 Requesting physician: Adi Blancas Reason for consult: pneumonia Chief complaint: Shortness of breath History of present illness: This is a 48-year-old female with history of multiple medical problems including diabetes, diabetic neuropathy, hypercholesterolemia, hypertension, seizure disorder, migraine cephalgia, patient was recently seen in the ER on 04/02/2018, and she presented at the time with mostly symptoms of fever, generalized body aches, pains, shortness of breath, and dry cough. Her chest x- ray did show evidence of extensive infiltrate in the left lung, however the patient was discharged home and for some reason no antibiotics were prescribed, and no antiviral therapy was offered. Patient was told that she has influenza, and she will recover on her own but she has to follow up with her primary care physician in 2 days. Patient came back today with worsening symptoms, and according to the note by the ER physician, the patient did not take her medications which were prescribed to her although the patient told me that no medications were prescribed to her. Patient is now complaining of worsening aches and pains, shortness of breath, dry cough, and upon evaluation in the ER, she was noted to have extensive infiltrate involving the left lung and to some extent the right lung. Patient was noted to have no evidence of leukocytosis, ABG on 44% FiO2 showed a pO2 of 56 pCO2 of 36 pH of 7.45. She was placed on a high flow nasal cannula at 8 L, her electrolytes were noted to be normal renal profile was normal. No lactic acid was noted, patient was hemodynamically stable upon presentation. She was started on Levaquin and I went ahead and added vancomycin. Patient was also started on Tamiflu. During my evaluation, the patient had mostly multiple constitutional symptoms, recurrent headaches, no blurred vision, no dizziness, no nausea no vomiting no abdominal pain no melena no hematemesis is no dysuria and no frequency no urgency. She does have history of diabetes and diabetic neuropathy with chronic pains in lower extremities. Review of Systems 14 point review of systems were obtained, please refer to pertinent positives in HPI, otherwise remaining systems are negative. Past Medical History Past Medical History: Asthma, Cancer, Diabetes Mellitus, GERD/Reflux, Hyperlipidemia, Hypertension, Pneumonia, Seizure Disorder, Sleep Apnea/CPAP/ BIPAP Additional Past Medical History / Comment(s): neck, back pain(recieves injections), ddd,neuropathy, migraines,hx of kidney stones, past cervical ca. 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 " History of Any Multi-Drug Resistant Organisms: None Reported Past Surgical History: Appendectomy, Tubal Ligation Additional Past Surgical History / Comment(s): back/neck injections, cone procedure for uterine cancer Past Anesthesia/Blood Transfusion Reactions: No Reported Reaction, Motion Sickness Additional Past Anesthesia/Blood Transfusion Reaction / Comment(s): clausterphobia Smoking Status: Former smoker - Past Family History Mother Family Medical History: CVA/TIA, Hypertension Additional Family Medical History / Comment(s): depression/anxiety Father Additional Family Medical History / Comment(s): mesothelioma Medications and Allergies Home Medications Medication Instructions Recorded Confirmed Type Gabapentin [Neurontin] 300 mg PO BID 10/18/13 04/04/18 History Lacosamide [Vimpat] 100 mg PO BID 01/16/14 04/04/18 History Albuterol Inhaler [Ventolin Hfa 1 - 2 puff INHALATION RT-Q6H PRN 04/03/16 History Inhaler] Beclomethasone Dipropionate [Qvar 2 puff INHALATION RT-BID 04/03/16 04/04/18 History 40 mcg] DULoxetine HCL [Cymbalta] 90 mg PO HS 04/03/16 04/04/18 History Divalproex ER [Depakote ER] 500 mg PO BID 04/03/16 04/04/18 History Fenofibrate 160 mg PO HS 04/03/16 04/04/18 History Furosemide [Lasix] 40 mg PO DAILY 04/04/18 04/04/18 History Hydrocodone/Acetaminophen [[place] 1 tab PO Q8H PRN 04/04/18 04/04/18 History 10-325] Insulin Glargine [Lantus] 70 unit SQ BID 04/04/18 04/04/18 History LORazepam [Ativan] 1 mg PO TID PRN 04/04/18 04/04/18 History Omeprazole [PriLOSEC] 40 mg PO DAILY 04/04/18 04/04/18 History Potassium Chloride [Klor-Con 10] 10 meq PO DAILY 04/04/18 04/04/18 History SUMAtriptan SUCCINATE [Imitrex] 100 mg PO BID PRN MDD 200 MG 04/04/18 04/04/18 History Topiramate [Topamax] 100 mg PO BID 04/04/18 04/04/18 History glipiZIDE [Glucotrol] 20 mg PO AC-BID 04/04/18 04/04/18 History hydrALAZINE HCL [Apresoline] 25 mg PO BID 04/04/18 04/04/18 History metFORMIN HCL 1,000 mg PO BID 04/04/18 04/04/18 History Allergies Allergy/AdvReac Type Severity Reaction Status Date / Time sulfamethoxazole Allergy Unknown Verified 04/04/18 07:08 [From Bactrim] trimethoprim [From Bactrim] Allergy Unknown Verified 04/04/18 07:08 metoclopramide HCl AdvReac Confusion Verified 04/04/18 07:08 [From Reglan] Physical Exam Vitals: Vital Signs Temp Pulse Pulse Resp BP BP Pulse Ox 04/05/18 14:41 97.6 F 88 30 H 110/59 96 04/05/18 13:39 25 H 91 L 04/05/18 12:25 92 04/05/18 12:15 92 04/05/18 12:08 25 H 92 L 04/05/18 09:27 96 04/05/18 09:09 100 04/05/18 07:41 97.9 F 93 32 H 123/59 91 L 04/05/18 03:08 97.5 F L 90 22 116/65 04/04/18 23:42 93 L 04/04/18 23:00 100.8 F H 98 20 93/44 90 L 04/04/18 19:58 100 84 L 04/04/18 16:40 97.8 F 116 H 22 129/78 90 L 04/04/18 16:13 98.2 F 83 18 128/67 96 04/04/18 15:31 100 04/04/18 15:20 100 Intake and Output 04/05/18 04/05/18 04/05/18 06:59 14:59 22:59 Intake Total 100 Balance 100 Intake: Oral 100 Other: # Voids 1 2 # Bowel Movements 1 Physical Exam: Revealed a 48-year-old female, obese, in no distress, however she is presently on 8 L high flow nasal cannula. Head: Atraumatic, normocephalic. HEENT:[Neck is supple.] [No neck masses.] [No thyromegaly.] [No JVD.] Chest: [Crackles and rhonchi noted on both lungs, left more so than right. Symmetrical expansion, no chest wall tenderness..] Cardiac Exam: [Normal S1 and S2, no S3 gallop, no murmur.] Abdomen: [Obese, Soft, nontender, no megaly, no rebound, no guarding, normal bowel sounds.] Extremities: [No clubbing, 1+ bipedal edema, no cyanosis.] Chronic venous stasis changes noted. Neurological Exam: [No focal neurologic deficit.] Skin: Chronic venous stasis changes noted in lower extremities. No rashes otherwise. Psychiatric: Normal mood, affect and mental status examination. Results - Laboratory Findings CBC and BMP: 04/05/18 08:21 04/05/18 08:21 ABG ABG pH 7.45 (7.35-7.45) 04/05/18 14:04 ABG pCO2 36 mmHg (35-45) 04/05/18 14:04 ABG pO2 56 mmHg (83-108) L* 04/05/18 14:04 ABG O2 Saturation 90.1 % (94-97) L 04/05/18 14:04 Abnormal lab findings: Abnormal Labs 04/04/18 04/04/18 04/04/18 08:00 08:05 08:05 MCV 74.2 L MCH 24.1 L RDW 16.9 H ABG pO2 ABG O2 Saturation Sodium 129 L Potassium 3.4 L Chloride 93 L Carbon Dioxide 20 L Glucose 232 H POC Glucose (mg/dL) 268 H Calcium 8.1 L AST 52 H Total Protein Albumin 3.3 L Urine Protein Urine Glucose (UA) Urine Ketones Urine Blood Urine RBC Urine Bacteria Urine Mucus 04/04/18 04/04/18 04/04/18 09:41 13:47 17:28 MCV MCH RDW ABG pO2 ABG O2 Saturation Sodium Potassium Chloride Carbon Dioxide Glucose POC Glucose (mg/dL) 207 H 222 H Calcium AST Total Protein Albumin Urine Protein Trace H Urine Glucose (UA) 4+ H Urine Ketones 2+ H Urine Blood Moderate H Urine RBC 38 H Urine Bacteria Occasional H Urine Mucus Rare H 1204/05/18 04/05/18 21:04 07:44 08:21 MCV 74.2 L MCH 23.6 L RDW 16.8 H ABG pO2 ABG O2 Saturation Sodium Potassium Chloride Carbon Dioxide Glucose POC Glucose (mg/dL) 265 H 151 H Calcium AST Total Protein Albumin Urine Protein Urine Glucose (UA) Urine Ketones Urine Blood Urine RBC Urine Bacteria Urine Mucus 04/05/18 04/05/18 04/05/18 08:21 12:28 14:04 MCV MCH RDW ABG pO2 56 L* ABG O2 Saturation 90.1 L Sodium Potassium Chloride Carbon Dioxide Glucose 138 H POC Glucose (mg/dL) 171 H Calcium 8.3 L AST 51 H Total Protein 6.0 L Albumin 3.0 L Urine Protein Urine Glucose (UA) Urine Ketones Urine Blood Urine RBC Urine Bacteria Urine Mucus - Diagnostic Findings Chest x-ray: image reviewed (Bilateral airspace disease, slightly worse compared to the chest x-ray dated 04/02/2018, consistent with pneumonia, pulmonary edema is not entirely ruled out.) Assessment and Plan Assessment: Impression: 1 acute extensive bilateral pneumonia associated with acute influenza infection , hence would be concerned about the possibility of Streptococcus pneumonia, Haemophilus influenza pneumonia, and staph aureus pneumonia. Patient is already on Levaquin, hence I will go ahead and add vancomycin. In the meantime the patient will continue on Tamiflu. 2 acute influenza infection. 3 acute hypoxic respiratory failure secondary to bilateral pneumonia associated with influenza infection. 4 multiple comorbidities including diabetes and diabetic neuropathy, GERD without esophagitis, hyperlipidemia, seizure disorder, chronic back and neck pain, migraine cephalgia and history of depression. Recommendation: Continue O2 at high flow nasal cannula, continue antibiotics including Levaquin and vancomycin, continue Tamiflu, continue bronchodilators/ DuoNeb, informed the nurse taking care of the patient to notify me if there is any worsening of her present pulmonary status. Patient actually looks more comfortable than expected considering her chest x-ray and considering her ABG. She does not seem to be in distress while on 8 L high flow nasal cannula. I ordered a serum BNP level, patient was already given 1 dose of Lasix. If BNP level is abnormal, will increase Lasix and we will recommend echocardiogram with Doppler. Time with Patient: Greater than 30
[2018-04-05] MEDS: VANCOMYCIN 1,750 MG in SODIUM CHLORIDE 0.9% 500 ML 500 ML IVPB SCH (17:07)
--- NOTE | 2018-04-05 17:14 | P.HPIM ---
History of Present Illness H&P Date: 04/05/18 Chief Complaint: shortness of breath, weakness, fatigue 48-year-old female with a past medical history significant for diabetes mellitus, hyperlipidemia, hypertension, seizure disorder, and nicotine dependence, who presented to the emergency room with a chief complaint of generalized malaise weakness and shortness of breath. The patient was seen in the emergency room on 04/02/2018 and diagnosed with influenza A. She was discharged home on Tamiflu. The patient states she continued to get worse at home. She was unable to take any of her medications and did not check her blood sugar she was at home. She reports she continued to drink alot of fluids when she was at home. She denies nausea or vomiting. Denies chest pain or pressure. She reports she was smoking two packs a day until about 6 days ago. This morning she reports her breathing feels more labored. Chest x-ray completed in the emergency room reveals bilateral diffuse airspace disease correlate for pneumonia, opportunistic infection, ARDS, or CHF. Repeat chest x-ray completed on 04/05/2018 reveals bilateral airspace disease. Correlate for pneumonia pulmonary edema. Most recent laboratory data reveals white count 6.2. Hemoglobin 11.7. Platelet count 208. Sodium 137. Potassium 3.5. BUN 9. Creatinine 0.62. Glucose 138. AST 51. ALT 26. ABGs completed on 6 L nasal cannula reveal pH 7.45. CO2 36. PO2 56. Bicarb 25. The patient was admitted to the hospital under the care of Dr. Blancas. REVIEW OF SYSTEMS: Those systems with pertinent positive or pertinent negative responses have been documented in the HPI PHYSICAL EXAM: GENERAL: This is a 48-year-old female who appears short of breath at the time of examination. Pleasant and cooperative. HEENT: Head is atraumatic, normocephalic. Pupils are equal, round, and reactive to light. Sclerae anicteric. Conjunctivae are clear. Mucus membranes of the mouth are moist. Neck is supple. RESPIRATORY: Lungs coarse with crackles to bilateral bases. No use of accessory muscles. Patient requiring 6L NC to maintain oxygen saturations greater than 92%. No chest wall tenderness is noted on palpation or with deep breathing. CARDIOVASCULAR: Regular rate and rhythm. S1 and S2 noted. No systolic or diastolic murmur auscultated. No JVD noted. No S3 or S4 noted. GASTROINTESTINAL: No distention noted. Abdomen soft and round. Normal active bowel sounds auscultated x 4 quadrants. No pain or tenderness noted upon palpation. INTEGUMENTARY: No cyanosis. No jaundice. No rashes noted. No cellulitis noted. EXTREMITIES: 2+ peripheral pulses. No evidence of peripheral edema. No calf tenderness noted. NEUROLOGIC: Cranial nerves II-XII grossly intact. PSYCHIATRIC: Awake, alert, and oriented X 3. Appropriate affect. Intact judgement and insight. ASSESSMENT: Bilateral pneumonia Acute influenza A Acute hypoxic respiratory failure Diabetes mellitus, type II Hyperglycemia, secondary to uncontrolled diabetes mellitus and patient not taking her medications due to illness Hypertension Hyperlipidemia Obstructive sleep apnea History of seizure disorder History of chronic back pain History of anxiety and depression Morbid obesity: BMI 41.6 Nicotine dependence, patient smokes two packs a day until 6 days ago PLAN: Consult pulmonary for evaluation Patient does not have her cpap or know her settings. Await recommendations from pulmonary regarding cpap settings. Lasix x 1 dose Duoneb treatments Pulmicort neubulizer Continue antibiotics Continue tamiflu Patient is drinking adequate fluids at this time and was bolused 2L in the ER. May decrease IV fluids to KVO. Home meds as appropriate Monitor labs GI prophylaxis: Protonix 40 mg PO Daily DVT prophylaxis: Heparin 5000 units subcu every 8 hours Monitor vital signs and address as appropriate Discharge planning: Patient to return home when stable Further recommendations pending patient's course Nurse practitioner note has been reviewed by physician. Signing provider agrees with the documented findings, assessment, and plan of care. Past Medical History Past Medical History: Asthma, Cancer, Diabetes Mellitus, GERD/Reflux, Hyperlipidemia, Hypertension, Pneumonia, Seizure Disorder, Sleep Apnea/CPAP/ BIPAP Additional Past Medical History / Comment(s): neck, back pain(recieves injections), ddd,neuropathy, migraines,hx of kidney stones, past cervical ca. 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 " History of Any Multi-Drug Resistant Organisms: None Reported Past Surgical History: Appendectomy, Tubal Ligation Additional Past Surgical History / Comment(s): back/neck injections, cone procedure for uterine cancer Past Anesthesia/Blood Transfusion Reactions: No Reported Reaction, Motion Sickness Additional Past Anesthesia/Blood Transfusion Reaction / Comment(s): clausterphobia Smoking Status: Former smoker - Past Family History Mother Family Medical History: CVA/TIA, Hypertension Additional Family Medical History / Comment(s): depression/anxiety Father Additional Family Medical History / Comment(s): mesothelioma Medications and Allergies Home Medications Medication Instructions Recorded Confirmed Type Gabapentin [Neurontin] 300 mg PO BID 10/18/13 04/04/18 History Lacosamide [Vimpat] 100 mg PO BID 01/16/14 04/04/18 History Albuterol Inhaler [Ventolin Hfa 1 - 2 puff INHALATION RT-Q6H PRN 04/03/16 History Inhaler] Beclomethasone Dipropionate [Qvar 2 puff INHALATION RT-BID 04/03/16 04/04/18 History 40 mcg] DULoxetine HCL [Cymbalta] 90 mg PO HS 04/03/16 04/04/18 History Divalproex ER [Depakote ER] 500 mg PO BID 04/03/16 04/04/18 History Fenofibrate 160 mg PO HS 04/03/16 04/04/18 History Furosemide [Lasix] 40 mg PO DAILY 04/04/18 04/04/18 History Hydrocodone/Acetaminophen [[place] 1 tab PO Q8H PRN 04/04/18 04/04/18 History 10-325] Insulin Glargine [Lantus] 70 unit SQ BID 04/04/18 04/04/18 History LORazepam [Ativan] 1 mg PO TID PRN 04/04/18 04/04/18 History Omeprazole [PriLOSEC] 40 mg PO DAILY 04/04/18 04/04/18 History Potassium Chloride [Klor-Con 10] 10 meq PO DAILY 04/04/18 04/04/18 History SUMAtriptan SUCCINATE [Imitrex] 100 mg PO BID PRN MDD 200 MG 04/04/18 04/04/18 History Topiramate [Topamax] 100 mg PO BID 04/04/18 04/04/18 History glipiZIDE [Glucotrol] 20 mg PO AC-BID 04/04/18 04/04/18 History hydrALAZINE HCL [Apresoline] 25 mg PO BID 04/04/18 04/04/18 History metFORMIN HCL 1,000 mg PO BID 04/04/18 04/04/18 History Allergies Allergy/AdvReac Type Severity Reaction Status Date / Time sulfamethoxazole Allergy Unknown Verified 04/04/18 07:08 [From Bactrim] trimethoprim [From Bactrim] Allergy Unknown Verified 04/04/18 07:08 metoclopramide HCl AdvReac Confusion Verified 04/04/18 07:08 [From Reglan] Physical Exam Vitals: Vital Signs Temp Pulse Pulse Resp BP BP Pulse Ox 04/05/18 13:39 25 H 91 L 04/05/18 12:25 92 04/05/18 12:15 92 04/05/18 12:08 25 H 92 L 04/05/18 09:27 96 04/05/18 09:09 100 04/05/18 07:41 97.9 F 93 32 H 123/59 91 L 04/05/18 03:08 97.5 F L 90 22 116/65 04/04/18 23:42 93 L 04/04/18 23:00 100.8 F H 98 20 93/44 90 L 04/04/18 19:58 100 84 L 04/04/18 16:40 97.8 F 116 H 22 129/78 90 L 04/04/18 16:13 98.2 F 83 18 128/67 96 04/04/18 15:31 100 04/04/18 15:20 100 Intake and Output 04/04/18 04/05/18 04/05/18 22:59 06:59 14:59 Intake Total 400 100 Balance 400 100 Intake: Oral 400 100 Other: Voiding Method Toilet # Voids 1 1 1 Results CBC & Chem 7: 04/05/18 08:21 04/05/18 08:21 Labs: Abnormal Lab Results - Last 24 Hours (Table) 04/04/18 04/04/18 04/05/18 Range/Units 17:28 21:04 07:44 MCV (80.0-100.0) fL MCH (25.0-35.0) pg RDW (11.5-15.5) % Glucose (74-99) mg/dL POC Glucose (mg/dL) 222 H 265 H 151 H (75-99) mg/dL Calcium (8.4-10.2) mg/dL AST (14-36) U/L Total Protein (6.3-8.2) g/dL Albumin (3.5-5.0) g/dL 04/05/18 04/05/18 04/05/18 Range/Units 08:21 08:21 12:28 MCV 74.2 L (80.0-100.0) fL MCH 23.6 L (25.0-35.0) pg RDW 16.8 H (11.5-15.5) % Glucose 138 H (74-99) mg/dL POC Glucose (mg/dL) 171 H (75-99) mg/dL Calcium 8.3 L (8.4-10.2) mg/dL AST 51 H (14-36) U/L Total Protein 6.0 L (6.3-8.2) g/dL Albumin 3.0 L (3.5-5.0) g/dL Microbiology - Last 24 Hours (Table) 04/04/18 08:05 Blood Culture - Preliminary Blood No Growth after 24 hours Thrombosis Risk Factor Assmnt - Choose All That Apply Each Factor Represents 1 point: Age 41-60 years Thrombosis Risk Factor Assessment Total Risk Factor Score: 1 Thrombosis Risk Factor Assessment Level: Low Risk
[2018-04-05] MEDS: metFORMIN 500 MG TAB PO SCH (17:16)
[2018-04-05 17:36] LABS: Glucose,Whole Blood 127 mg/dL (75-99)
[2018-04-05] MEDS: BUDESONIDE 1 MG/2 ML NEBU INHALATION SCH (19:22)
[2018-04-05] MEDS: ATORVASTATIN 80 MG TAB PO SCH (20:21)
[2018-04-05] MEDS: guaiFENesin 600 MG TABLET.ER PO SCH (20:21)
[2018-04-05] MEDS: FENOFIBRATE 160 MG TAB PO SCH (20:22)
[2018-04-05] MEDS: DULoxetine HCL 30 MG CAPSULE.DR PO SCH (20:22)
[2018-04-05 21:27] LABS: Glucose,Whole Blood 117 mg/dL (75-99)
[2018-04-06] MEDS: VANCOMYCIN 1,750 MG in SODIUM CHLORIDE 0.9% 500 ML 500 ML IVPB SCH ×2 (05:14→18:01)
[2018-04-06 05:28] LABS: Glucose,Whole Blood 90 mg/dL (75-99)
[2018-04-06] MEDS: BUDESONIDE 1 MG/2 ML NEBU INHALATION SCH ×2 (07:07→19:34)
[2018-04-06] MEDS: IPRATROPIUM-ALBUTEROL 3 ML NEB INHALATION SCH ×4 (07:07→19:34)
[2018-04-06 07:27] LABS: Glucose,Whole Blood 91 mg/dL (75-99)
[2018-04-06] MEDS: INSULIN ASPART 100 UNIT/ML 1 ML 10 ML VIAL SQ SCH ×4 (07:55→21:54)
[2018-04-06] MEDS: glipiZIDE 10 MG TAB PO SCH ×2 (07:56→18:46)
[2018-04-06] MEDS: HEPARIN SODIUM,PORCINE 5,000 UNIT/ML 1 ML VIAL SQ SCH ×2 (07:57→17:58)
[2018-04-06] MEDS: metFORMIN 500 MG TAB PO SCH ×2 (07:57→17:59)
[2018-04-06] MEDS: guaiFENesin 600 MG TABLET.ER PO SCH ×2 (07:57→21:53)
[2018-04-06] MEDS: DIVALPROEX ER 500 MG TAB.ER.24H PO SCH ×2 (07:57→21:52)
[2018-04-06] MEDS: PANTOPRAZOLE 40 MG TABLET PO SCH (07:57)
[2018-04-06] MEDS: GABAPENTIN 300 MG CAP PO SCH ×2 (07:57→21:53)
[2018-04-06] MEDS: hydrALAZINE HCL 25 MG TAB PO SCH ×2 (07:58→21:53)
[2018-04-06] MEDS: LEVOFLOXACIN 750 MG TAB PO SCH (07:58)
[2018-04-06] MEDS: POTASSIUM CHLORIDE ER 10 MEQ TAB.ER.PRT PO SCH (07:59)
[2018-04-06] MEDS: TOPIRAMATE 100 MG TAB PO SCH ×2 (07:59→21:56)
[2018-04-06] MEDS: LISINOPRIL-HCTZ 10-12.5 MG 1 EACH TAB PO SCH (07:59)
[2018-04-06] MEDS: OSELTAMIVIR 75 MG CAP PO SCH ×2 (07:59→21:55)
[2018-04-06 08:32] LABS: Anisocytosis Slight; HCT 34.3 % (34.0-46.0); HGB 11.1 gm/dL (11.4-16.0); Hypochromasia Moderate; MCHC 32.3 g/dL (31.0-37.0); MCV 74.5 fL (80.0-100.0); Mean Platelet Volume 8.1; Microcytosis Slight; Platelet Count 246 k/uL (150-450); Poikilocytosis Slight; RDW 16.8 % (11.5-15.5); WBC 6.7 k/uL (3.8-10.6)
[2018-04-06 08:33] LABS: ALT 27 U/L (9-52); AST 50 U/L (14-36); Albumin 2.8 g/dL (3.5-5.0); Alkaline Phosphatase 74 U/L (38-126); Anion Gap 7 mmol/L; Blood Urea Nitrogen 10 mg/dL (7-17); Calcium 8.5 mg/dL (8.4-10.2); Carbon Dioxide 29 mmol/L (22-30); Chloride 103 mmol/L (98-107); Glucose 81 mg/dL (74-99); Potassium 3.3 mmol/L (3.5-5.1); Sodium 139 mmol/L (137-145); Total Bilirubin 0.2 mg/dL (0.2-1.3); Total Protein 5.8 g/dL (6.3-8.2)
[2018-04-06 08:39] LABS: Glucose,Whole Blood 84 mg/dL (75-99)
[2018-04-06] MEDS: LACOSAMIDE 50 MG TABLET PO SCH ×2 (08:41→21:55)
[2018-04-06 08:50] LABS: Band Neutrophils % 1 %; Lymphocytes # (M) 2.35 k/uL (1.0-4.8); Monocytes # (M) 0.13 k/uL (0-1.0); Neutrophils % (M) 62 %; Nucleated Red Blood Cells 0 /100 WBC (0-0); Total Cells Counted 100
[2018-04-06 08:59] LABS: Glucose,Whole Blood 82 mg/dL (75-99)
[2018-04-06] MEDS: INSULIN DETEMIR 100 UNIT/ML 10 ML VIAL SQ SCH ×2 (09:20→21:55)
[2018-04-06 09:22] LABS: Glucose,Whole Blood 108 mg/dL (75-99)
[2018-04-06] MEDS ORDERED: Potassium Replacement Protocol 1 EACH MISC MISCELLANE PRN (09:31)
[2018-04-06] MEDS: POTASSIUM CHLORIDE 10 MEQ in WATER FOR INJECTION 1 100ML.BAG IVPB SCH ×4 (10:16→17:54)
[2018-04-06 10:52] LABS: Glucose,Whole Blood 126 mg/dL (75-99)
--- NOTE | 2018-04-06 12:01 | XR ---
EXAMINATION TYPE: XR chest 1V portable DATE OF EXAM: 04/06/2018 COMPARISON: Prior chest x-ray 04/05/2018 HISTORY: Pneumonia TECHNIQUE: Single frontal view of the chest is obtained. FINDINGS: Bilateral airspace disease is present. No evident pneumothorax. Heart size is obscured but thought likely to be stable accounting for differences in technique, rotation. IMPRESSION: Correlate for congestive heart failure, pneumonia, pulmonary edema. Follow-up recommende d.
--- NOTE | 2018-04-06 12:08 | P.PN ---
Subjective Progress Note Date: 04/06/18 Principal diagnosis: Acute extensive bilateral pneumonia complicated by influenza A This is a 48-year-old female with history of multiple medical problems including diabetes, diabetic neuropathy, hypercholesterolemia, hypertension, seizure disorder, migraine cephalgia, patient was recently seen in the ER on 04/02/2018, and she presented at the time with mostly symptoms of fever, generalized body aches, pains, shortness of breath, and dry cough. Her chest x- ray did show evidence of extensive infiltrate in the left lung, however the patient was discharged home and for some reason no antibiotics were prescribed, and no antiviral therapy was offered. Patient was told that she has influenza, and she will recover on her own but she has to follow up with her primary care physician in 2 days. Patient came back today with worsening symptoms, and according to the note by the ER physician, the patient did not take her medications which were prescribed to her although the patient told me that no medications were prescribed to her. Patient is now complaining of worsening aches and pains, shortness of breath, dry cough, and upon evaluation in the ER, she was noted to have extensive infiltrate involving the left lung and to some extent the right lung. Patient was noted to have no evidence of leukocytosis, ABG on 44% FiO2 showed a pO2 of 56 pCO2 of 36 pH of 7.45. She was placed on a high flow nasal cannula at 8 L, her electrolytes were noted to be normal renal profile was normal. No lactic acid was noted, patient was hemodynamically stable upon presentation. She was started on Levaquin and I went ahead and added vancomycin. Patient was also started on Tamiflu. During my evaluation, the patient had mostly multiple constitutional symptoms, recurrent headaches, no blurred vision, no dizziness, no nausea no vomiting no abdominal pain no melena no hematemesis is no dysuria and no frequency no urgency. She does have history of diabetes and diabetic neuropathy with chronic pains in lower extremities. The patient is seen today 04/06/2018 in follow-up on the regular medical floor. She did have progressive shortness of breath and required high flow nasal cannula from 8 L up to 15 L earlier this morning. She was subsequently placed on BiPAP 12/6 and 100% FiO2. She is to be transferred to the intensive care unit. Chest x-ray shows worsening pneumonia bilaterally. She is maintaining good O2 saturations now. She is more awake and alert. She is still somewhat tachycardic and tachypneic. Blood culture reveals no growth. White count 6.7. Hemoglobin 11.1. Sodium 139. Potassium 3.3. Creatinine 0.66. She had been initiated on vancomycin and Levaquin along with DuoNeb inhalations, Pulmicort inhalations, Mucinex and Tamiflu for influenza A. Objective - Vital Signs Vital signs: Vital Signs Temp 97.0 F L 04/06/18 07:01 Pulse 92 04/06/18 11:02 Resp 27 H 04/06/18 09:30 BP 104/64 04/06/18 07:01 Pulse Ox 98 04/06/18 09:30 Intake & Output 04/05/18 04/06/18 04/06/18 18:59 06:59 18:59 Intake Total 700 Balance 700 Weight 117 kg Intake: Oral 700 Other: Voiding Method Toilet # Voids 3 2 # Bowel Movements 1 - Exam GENERAL EXAM: Obese. Alert, in slight respiratory distress. Placed on BiPAP , 100% FiO2. HEAD: Normocephalic. EYES: Normal reaction of pupils, equal size. NOSE: Clear with pink turbinates. THROAT: Crowding of posterior pharynx. No erythema or exudates. NECK: Short. No masses, no JVD. CHEST: No chest wall deformity. LUNGS: Equal air entry with scattered rhonchi bilaterally. CVS: S1 and S2 normal with no audible murmur, regular rhythm. ABDOMEN: No hepatosplenomegaly, normal bowel sounds, no guarding or rigidity. SPINE: No scoliosis or deformity SKIN: No rashes CENTRAL NERVOUS SYSTEM: No focal deficits, tone is normal in all 4 extremities. EXTREMITIES: There is no peripheral edema. No clubbing, no cyanosis. Peripheral pulses are intact. - Labs CBC & Chem 7: 04/06/18 07:54 04/06/18 07:54 Labs: Abnormal Lab Results - Last 24 Hours (Table) 04/05/18 04/05/18 04/05/18 Range/Units 12:28 14:04 17:09 Hgb (11.4-16.0) gm/dL MCV (80.0-100.0) fL MCH (25.0-35.0) pg RDW (11.5-15.5) % ABG pO2 56 L* (83-108) mmHg ABG O2 Saturation 90.1 L (94-97) % Potassium (3.5-5.1) mmol/L POC Glucose (mg/dL) 171 H 127 H (75-99) mg/dL AST (14-36) U/L Total Protein (6.3-8.2) g/dL Albumin (3.5-5.0) g/dL 04/05/18 04/06/18 04/06/18 Range/Units 20:56 07:54 07:54 Hgb 11.1 L (11.4-16.0) gm/dL MCV 74.5 L (80.0-100.0) fL MCH 24.0 L (25.0-35.0) pg RDW 16.8 H (11.5-15.5) % ABG pO2 (83-108) mmHg ABG O2 Saturation (94-97) % Potassium 3.3 L (3.5-5.1) mmol/L POC Glucose (mg/dL) 117 H (75-99) mg/dL AST 50 H (14-36) U/L Total Protein 5.8 L (6.3-8.2) g/dL Albumin 2.8 L (3.5-5.0) g/dL 04/06/18 04/06/18 Range/Units 09:10 10:49 Hgb (11.4-16.0) gm/dL MCV (80.0-100.0) fL MCH (25.0-35.0) pg RDW (11.5-15.5) % ABG pO2 (83-108) mmHg ABG O2 Saturation (94-97) % Potassium (3.5-5.1) mmol/L POC Glucose (mg/dL) 108 H 126 H (75-99) mg/dL AST (14-36) U/L Total Protein (6.3-8.2) g/dL Albumin (3.5-5.0) g/dL Microbiology - Last 24 Hours (Table) 04/04/18 08:05 Blood Culture - Preliminary Blood No Growth after 48 hours Assessment and Plan Assessment: Impression: 1 acute hypoxic respiratory failure secondary to acute extensive bilateral pneumonia associated with acute influenza A infection, hence would be concerned about the possibility of Streptococcus pneumonia, Haemophilus influenza pneumonia, and staph aureus pneumonia. Patient is already on Levaquin, and vancomycin. In the meantime the patient will continue on Tamiflu. Worsening hypoxia requiring BiPAP 12/6 and 100% FiO2. 2 acute influenza infection. 3 acute hypoxic respiratory failure secondary to bilateral pneumonia associated with influenza infection. 4 multiple comorbidities including diabetes and diabetic neuropathy, GERD without esophagitis, hyperlipidemia, seizure disorder, chronic back and neck pain, migraine cephalgia and history of depression. Recommendation: The patient was seen and evaluated by Dr. Smith. Chest x-ray and labs were reviewed. Her x-ray shows worsening bilateral infiltrates. She did have significant respiratory distress and increasing oxygen requirements earlier this morning and was placed on BiPAP 12/6 and 100% FiO2. She is to be transferred to the intensive care unit for closer monitoring. We'll continue with vancomycin and Levaquin. Continue bronchodilators. Continue Tamiflu. Add IV Solu-Medrol. She remains on heparin for DVT prophylaxis. Protonix for GI prophylaxis. We will continue to follow and make further recommendations based on her clinical status. I, the cosigning physician, performed a history & physical examination of the patient. Lungs sounds with bilateral rhonchi. Maintaining good O2 saturations in the 90s on 100% FiO2 on BiPAP 12/6. I discussed the assessment and plan of care with my nurse practitioner, Shyla Teixeira. I attest to the above note as dictated by her.
[2018-04-06] MEDS ORDERED: FUROSEMIDE 10 MG/ML 4 ML VIAL IV STA (12:19)
[2018-04-06] MEDS: methylPREDNISolone SOD SUCCI 125 MG/2 ML VIAL IV SCH ×2 (12:20→17:58)
[2018-04-06 12:37] LABS: Glucose,Whole Blood 134 mg/dL (75-99)
--- NOTE | 2018-04-06 12:53 | P.PN ---
Subjective Progress Note Date: 04/06/18 48-year-old female with a past medical history significant for diabetes mellitus, hyperlipidemia, hypertension, seizure disorder, and nicotine dependence, who presented to the emergency room with a chief complaint of generalized malaise weakness and shortness of breath. The patient was seen in the emergency room on 04/02/2018 and diagnosed with influenza A. She was discharged home on Tamiflu. The patient states she continued to get worse at home. She was unable to take any of her medications and did not check her blood sugar she was at home. She reports she continued to drink alot of fluids when she was at home. She denies nausea or vomiting. Denies chest pain or pressure. She reports she was smoking two packs a day until about 6 days ago. This morning she reports her breathing feels more labored. Chest x-ray completed in the emergency room reveals bilateral diffuse airspace disease correlate for pneumonia, opportunistic infection, ARDS, or CHF. Repeat chest x-ray completed on 04/05/2018 reveals bilateral airspace disease. Correlate for pneumonia pulmonary edema. Most recent laboratory data reveals white count 6.2. Hemoglobin 11.7. Platelet count 208. Sodium 137. Potassium 3.5. BUN 9. Creatinine 0.62. Glucose 138. AST 51. ALT 26. ABGs completed on 6 L nasal cannula reveal pH 7.45. CO2 36. PO2 56. Bicarb 25. The patient was admitted to the hospital under the care of Dr. Blancas. 04/06/2018 The patient was evaluated by pulmonary yesterday after ABGs were completed revealing po2 of 56. Vancomycin was added to patients medication regimen. This morning the patient was found to be hypoxic on 8L NC. She was increased to 15L high flow but continued to have oxygen saturations less than 92%. She was placed on bipap /6 Fio2 of 100%. Orders were placed for the patient to transfer to ICU. Patient is lethargic this morning but arousable to verbal stimuli. PHYSICAL EXAM: GENERAL: This is a 48-year-old female who is lethargic at the time of examination. HEENT: Head is atraumatic, normocephalic. Pupils are equal, round, and reactive to light. Sclerae anicteric. Conjunctivae are clear. Mucus membranes of the mouth are moist. Neck is supple. RESPIRATORY: Lungs coarse with bilateral rhonchi. No use of accessory muscles. Patient currently on bipap 100% fio2. No chest wall tenderness is noted on palpation or with deep breathing. CARDIOVASCULAR: Regular rate and rhythm. S1 and S2 noted. No systolic or diastolic murmur auscultated. No JVD noted. No S3 or S4 noted. GASTROINTESTINAL: No distention noted. Abdomen soft and round. Normal active bowel sounds auscultated x 4 quadrants. No pain or tenderness noted upon palpation. INTEGUMENTARY: No cyanosis. No jaundice. No rashes noted. No cellulitis noted. EXTREMITIES: 2+ peripheral pulses. No evidence of peripheral edema. No calf tenderness noted. NEUROLOGIC: Cranial nerves II-XII grossly intact. PSYCHIATRIC: Lethargic. Moving all extremities. Arousable to verbal stimuli. ASSESSMENT: Bilateral pneumonia associated with acute influenza A infection Acute influenza A Acute hypoxic respiratory failure Diabetes mellitus, type II Hyperglycemia, secondary to uncontrolled diabetes mellitus and patient not taking her medications due to illness Hypertension Hyperlipidemia Obstructive sleep apnea History of seizure disorder History of chronic back pain History of anxiety and depression Morbid obesity: BMI 41.6 Nicotine dependence, patient smokes two packs a day until 6 days ago PLAN: Patient waiting bed assignment in ICU Pulmonary on consult. Appreciate recommendations and input Continue bipap Duoneb treatments Pulmicort neubulizer Continue antibiotics: currently on vanco and levaquin Continue tamiflu Replace potassium Home meds as appropriate Monitor labs GI prophylaxis: Protonix 40 mg PO Daily DVT prophylaxis: Heparin 5000 units subcu every 8 hours Monitor vital signs and address as appropriate Discharge planning: Patient to return home when stable. Will re-evaluate discharge plan as patient is closer to discharge. Further recommendations pending patient's course Nurse practitioner note has been reviewed by physician. Signing provider agrees with the documented findings, assessment, and plan of care. Objective - Vital Signs Vital signs: Vital Signs Temp 97.0 F L 04/06/18 07:01 Pulse 92 04/06/18 11:02 Resp 27 H 04/06/18 09:30 BP 104/64 04/06/18 07:01 Pulse Ox 98 04/06/18 09:30 Intake & Output 04/05/18 04/06/18 04/06/18 18:59 06:59 18:59 Intake Total 700 Balance 700 Weight 117 kg Intake: Oral 700 Other: Voiding Method Toilet # Voids 3 2 # Bowel Movements 1 - Labs CBC & Chem 7: 04/06/18 07:54 04/06/18 07:54 Labs: Abnormal Lab Results - Last 24 Hours (Table) 04/05/18 04/05/18 04/05/18 Range/Units 12:28 14:04 17:09 Hgb (11.4-16.0) gm/dL MCV (80.0-100.0) fL MCH (25.0-35.0) pg RDW (11.5-15.5) % ABG pO2 56 L* (83-108) mmHg ABG O2 Saturation 90.1 L (94-97) % Potassium (3.5-5.1) mmol/L POC Glucose (mg/dL) 171 H 127 H (75-99) mg/dL AST (14-36) U/L Total Protein (6.3-8.2) g/dL Albumin (3.5-5.0) g/dL 04/05/18 04/06/18 04/06/18 Range/Units 20:56 07:54 07:54 Hgb 11.1 L (11.4-16.0) gm/dL MCV 74.5 L (80.0-100.0) fL MCH 24.0 L (25.0-35.0) pg RDW 16.8 H (11.5-15.5) % ABG pO2 (83-108) mmHg ABG O2 Saturation (94-97) % Potassium 3.3 L (3.5-5.1) mmol/L POC Glucose (mg/dL) 117 H (75-99) mg/dL AST 50 H (14-36) U/L Total Protein 5.8 L (6.3-8.2) g/dL Albumin 2.8 L (3.5-5.0) g/dL 04/06/18 04/06/18 Range/Units 09:10 10:49 Hgb (11.4-16.0) gm/dL MCV (80.0-100.0) fL MCH (25.0-35.0) pg RDW (11.5-15.5) % ABG pO2 (83-108) mmHg ABG O2 Saturation (94-97) % Potassium (3.5-5.1) mmol/L POC Glucose (mg/dL) 108 H 126 H (75-99) mg/dL AST (14-36) U/L Total Protein (6.3-8.2) g/dL Albumin (3.5-5.0) g/dL Microbiology - Last 24 Hours (Table) 04/04/18 08:05 Blood Culture - Preliminary Blood No Growth after 48 hours
[2018-04-06] MEDS: SODIUM CHLORIDE 0.9% 1,000 ML IV SCH (17:54)
[2018-04-06 18:04] LABS: Glucose,Whole Blood 222 mg/dL (75-99)
[2018-04-06 21:05] LABS: Glucose,Whole Blood 279 mg/dL (75-99)
[2018-04-06] MEDS: DULoxetine HCL 30 MG CAPSULE.DR PO SCH (21:52)
[2018-04-06] MEDS: ATORVASTATIN 80 MG TAB PO SCH (21:52)
[2018-04-06] MEDS: FENOFIBRATE 160 MG TAB PO SCH (21:53)
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
[2018-04-07] MEDS: methylPREDNISolone SOD SUCCI 125 MG/2 ML VIAL IV SCH ×2 (01:21→06:18)
[2018-04-07] MEDS: HEPARIN SODIUM,PORCINE 5,000 UNIT/ML 1 ML VIAL SQ SCH ×3 (01:21→16:00)
[2018-04-07 04:48] LABS: Glucose,Whole Blood 259 mg/dL (75-99)
[2018-04-07 05:52] LABS: ALT 25 U/L (9-52); AST 41 U/L (14-36); Alkaline Phosphatase 70 U/L (38-126); Anion Gap 9 mmol/L; Blood Urea Nitrogen 15 mg/dL (7-17); Calcium 9.4 mg/dL (8.4-10.2); Carbon Dioxide 27 mmol/L (22-30); Chloride 102 mmol/L (98-107); Glucose 278 mg/dL (74-99); Magnesium 1.7 mg/dL (1.6-2.3); Phosphorus 3.7 mg/dL (2.5-4.5); Sodium 138 mmol/L (137-145); Total Bilirubin 0.4 mg/dL (0.2-1.3)
[2018-04-07 05:53] LABS: Anisocytosis Slight; HCT 35.9 % (34.0-46.0); HGB 11.4 gm/dL (11.4-16.0); Hypochromasia Moderate; MCH 24.2 pg (25.0-35.0); MCHC 31.9 g/dL (31.0-37.0); Mean Platelet Volume 8.3; Microcytosis Slight; Platelet Count 263 k/uL (150-450); Poikilocytosis Slight; RBC 4.73 m/uL (3.80-5.40); RDW 17.2 % (11.5-15.5); WBC 4.6 k/uL (3.8-10.6)
[2018-04-07] MEDS ORDERED: Magnesium Replacement Protocol 1 EACH MISC MISCELLANE PRN (06:14)
[2018-04-07] MEDS: VANCOMYCIN 1,750 MG in SODIUM CHLORIDE 0.9% 500 ML 500 ML IVPB SCH ×2 (06:18→17:58)
[2018-04-07 06:27] LABS: Band Neutrophils % 10 %; Lymphocytes # (M) 1.24 k/uL (1.0-4.8); Monocytes # (M) 0.14 k/uL (0-1.0); Neutrophils % (M) 60 %; Nucleated Red Blood Cells 0 /100 WBC (0-0); Total Cells Counted 100
[2018-04-07] MEDS: MAGNESIUM SULFATE-D5W PMX 1 GM in DEXTROSE/WATER 1 100ML.BAG IVPB SCH ×2 (06:27→08:15)
--- NOTE | 2018-04-07 08:04 | ECHOF ---
Referral Reason:chf MEASUREMENTS -------- HEIGHT: 167.6 cm WEIGHT: 116.6 kg BP: 104/61 RVIDd: 2.9 cm (< 3.3) IVSd: 1.4 cm (0.6 - 1.1) LVIDd: 4.9 cm (3.9 - 5.3) LVPWd: 1.4 cm (0.6 - 1.1) IVSs: 1.7 cm LVIDs: 3.7 cm LVPWs: 1.9 cm LA Diam: 4.1 cm (2.7 - 3.8) LAESV Index (A-L): 29.97 ml/m Ao Diam: 3.1 cm (2.0 - 3.7) AV Cusp: 2.1 cm (1.5 - 2.6) EPSS: 1.5 cm MV E Joseph: 0.80 m/s MV DecT: 205 ms MV A Joseph: 0.87 m/s MV E/A Ratio: 0.92 MV EF SLOPE: 120.31 mm/s (70 - 150) MV EXCURSION: 1.44 cm (> 18.000) FINDINGS -------- Sinus rhythm. This was a technically adequate study. The left ventricular size is normal. There is moderate concentric left ventricular hypertrophy. O verall left ventricular systolic function is low-normal with, an EF between 50 - 55 %. The right ventricle is normal in size. LA is midly dilated 29-33ml/m2. The right atrial size is normal. The aortic valve is trileaflet and appears structurally normal. The mitral valve is normal. There is trace mitral regurgitation. The tricuspid valve appears structurally normal. Trace tricuspid regurgitation present. There is no pulmonic regurgitation present. The aortic root size is normal. IVC Not well visulized. There is no pericardial effusion. CONCLUSIONS -------- 1. Sinus rhythm. 2. This was a technically adequate study. 3. The left ventricular size is normal. 4. There is moderate concentric left ventricular hypertrophy. 5. Overall left ventricular systolic function is low-normal with, an EF between 50 - 55 %. 6. LA is midly dilated 29-33ml/m2. 7. The aortic valve is trileaflet and appears structurally normal. 8. The mitral valve is normal. 9. There is trace mitral regurgitation. 10. The tricuspid valve appears structurally normal. 11. Trace tricuspid regurgitation present. 12. There is no pulmonic regurgitation present. 13. The aortic root size is normal. 14. IVC Not well visulized. 15. There is no pericardial effusion. ASSISTANT CONTROLLER: JOESPH Jones
[2018-04-07] MEDS: IPRATROPIUM-ALBUTEROL 3 ML NEB INHALATION SCH ×4 (08:14→20:44)
[2018-04-07] MEDS: BUDESONIDE 1 MG/2 ML NEBU INHALATION SCH ×2 (08:14→20:45)
[2018-04-07] MEDS: INSULIN ASPART 100 UNIT/ML 1 ML 10 ML VIAL SQ SCH ×4 (08:17→21:17)
[2018-04-07] MEDS: metFORMIN 500 MG TAB PO SCH ×2 (08:18→17:13)
[2018-04-07] MEDS: PANTOPRAZOLE 40 MG TABLET PO SCH (08:18)
[2018-04-07] MEDS: glipiZIDE 10 MG TAB PO SCH ×2 (08:19→17:13)
[2018-04-07] MEDS: LISINOPRIL-HCTZ 10-12.5 MG 1 EACH TAB PO SCH (09:10)
[2018-04-07] MEDS: LEVOFLOXACIN 750 MG TAB PO SCH (09:10)
[2018-04-07] MEDS: LACOSAMIDE 50 MG TABLET PO SCH (09:10)
[2018-04-07] MEDS: DIVALPROEX ER 500 MG TAB.ER.24H PO SCH ×2 (09:11→21:18)
[2018-04-07] MEDS: TOPIRAMATE 100 MG TAB PO SCH (09:11)
[2018-04-07] MEDS: OSELTAMIVIR 75 MG CAP PO SCH ×2 (09:12→21:18)
[2018-04-07] MEDS: guaiFENesin 600 MG TABLET.ER PO SCH ×2 (09:12→21:19)
[2018-04-07] MEDS: POTASSIUM CHLORIDE ER 10 MEQ TAB.ER.PRT PO SCH (09:12)
[2018-04-07] MEDS: GABAPENTIN 300 MG CAP PO SCH ×2 (09:13→21:19)
[2018-04-07] MEDS: INSULIN DETEMIR 100 UNIT/ML 10 ML VIAL SQ SCH ×2 (09:13→21:19)
[2018-04-07] MEDS: hydrALAZINE HCL 25 MG TAB PO SCH ×2 (09:13→21:20)
--- NOTE | 2018-04-07 09:33 | XR ---
EXAMINATION TYPE: XR chest 1V portable DATE OF EXAM: 04/07/2018 COMPARISON: Prior chest x-ray 04/06/2018 HISTORY: Pneumonia TECHNIQUE: Single frontal view of the chest is obtained. FINDINGS: The interstitium, bibasilar airspace disease is noted, aeration thought to be improved. He art size likely stable. No evident pneumothorax or sizable effusion. IMPRESSION: Some improvement in aeration is thought present.
--- NOTE | 2018-04-07 11:55 | P.PN ---
Subjective Progress Note Date: 04/07/18 48-year-old female with a past medical history significant for diabetes mellitus, hyperlipidemia, hypertension, seizure disorder, and nicotine dependence, who presented to the emergency room with a chief complaint of generalized malaise weakness and shortness of breath. The patient was seen in the emergency room on 04/02/2018 and diagnosed with influenza A. She was discharged home on Tamiflu. The patient states she continued to get worse at home. She was unable to take any of her medications and did not check her blood sugar she was at home. She reports she continued to drink alot of fluids when she was at home. She denies nausea or vomiting. Denies chest pain or pressure. She reports she was smoking two packs a day until about 6 days ago. This morning she reports her breathing feels more labored. Chest x-ray completed in the emergency room reveals bilateral diffuse airspace disease correlate for pneumonia, opportunistic infection, ARDS, or CHF. Repeat chest x-ray completed on 04/05/2018 reveals bilateral airspace disease. Correlate for pneumonia pulmonary edema. Most recent laboratory data reveals white count 6.2. Hemoglobin 11.7. Platelet count 208. Sodium 137. Potassium 3.5. BUN 9. Creatinine 0.62. Glucose 138. AST 51. ALT 26. ABGs completed on 6 L nasal cannula reveal pH 7.45. CO2 36. PO2 56. Bicarb 25. The patient was admitted to the hospital under the care of Dr. Blancas. 04/06/2018 The patient was evaluated by pulmonary yesterday after ABGs were completed revealing po2 of 56. Vancomycin was added to patients medication regimen. This morning the patient was found to be hypoxic on 8L NC. She was increased to 15L high flow but continued to have oxygen saturations less than 92%. She was placed on bipap 03/31 Fio2 of 100%. Orders were placed for the patient to transfer to ICU. Patient is lethargic this morning but arousable to verbal stimuli. 04/07/2018 Patient was transferred to ICU yesterday due to worsening hypoxia. She is alternating between high flow NC and bipap. She was evaluated by infectious disease last night. She remains on Levaquin and vancomycin. Blood cultures are negative at the 48 hour kyaw. Repeat chest x-ray reveals bibasilar airspace disease redemonstrated although some improvement in aeration is present. Echocardiogram was completed yesterday revealing ejection fraction between 50 and 55%. Trace tricuspid regurgitation and trace mitral regurgitation. PHYSICAL EXAM: GENERAL: This is a 48-year-old female who is awake and sitting in the chair at the time of examination. HEENT: Head is atraumatic, normocephalic. Pupils are equal, round, and reactive to light. Sclerae anicteric. Conjunctivae are clear. Mucus membranes of the mouth are moist. Neck is supple. RESPIRATORY: Lungs coarse with bilateral rhonchi and expiratory wheezing, improved gas exchange. No use of accessory muscles. Patient currently on 15 L high flow cannula. No chest wall tenderness is noted on palpation or with deep breathing. CARDIOVASCULAR: Regular rate and rhythm. S1 and S2 noted. No systolic or diastolic murmur auscultated. No JVD noted. No S3 or S4 noted. GASTROINTESTINAL: No distention noted. Abdomen soft and round. Normal active bowel sounds auscultated x 4 quadrants. No pain or tenderness noted upon palpation. INTEGUMENTARY: No cyanosis. No jaundice. No rashes noted. No cellulitis noted. EXTREMITIES: 2+ peripheral pulses. No evidence of peripheral edema. No calf tenderness noted. NEUROLOGIC: Cranial nerves II-XII grossly intact. PSYCHIATRIC: Lethargic. Moving all extremities. Arousable to verbal stimuli. ASSESSMENT: Bilateral pneumonia associated with acute influenza A infection Acute influenza A Acute hypoxic respiratory failure Diabetes mellitus, type II Hyperglycemia, secondary to uncontrolled diabetes mellitus and patient not taking her medications due to illness Hypertension Hyperlipidemia Obstructive sleep apnea History of seizure disorder History of chronic back pain History of anxiety and depression Morbid obesity: BMI 41.6 Nicotine dependence, patient smokes two packs a day until 6 days ago PLAN: Pulmonary on consult. Appreciate recommendations and input Duoneb treatments Pulmicort neubulizer Continue antibiotics: currently on vanco and levaquin Continue tamiflu Home meds as appropriate Activity as tolerated Monitor labs GI prophylaxis: Protonix 40 mg PO Daily DVT prophylaxis: Heparin 5000 units subcu every 8 hours Monitor vital signs and address as appropriate Discharge planning: Patient to return home when stable. Will re-evaluate discharge plan as patient is closer to discharge. Further recommendations pending patient's course Nurse practitioner note has been reviewed by physician. Signing provider agrees with the documented findings, assessment, and plan of care. Objective - Vital Signs Vital signs: Vital Signs Temp 97.6 F 04/07/18 08:00 Pulse 92 04/07/18 09:00 Resp 24 04/07/18 09:00 BP 111/77 04/07/18 09:00 Pulse Ox 94 L 04/07/18 09:00 Intake & Output 04/06/18 04/07/18 04/07/18 18:59 06:59 18:59 Intake Total 300 820 160 Output Total 2750 1680 435 Balance -2450 -860 -275 Weight 124.1 kg Intake: IV 300 820 160 0.9 100 220 60 Magnesium Sulfate-D5w Pmx 100 100 1 gm In Dextrose/Water 1 100ml.bag @ 100 mls/hr IVPB Q1H NADIA Rx#: [id number] Potassium Chloride 10 meq 200 In Water For Injection 1 100ml.bag @ 100 mls/hr IVPB Q1HR NADIA Rx#: [id number] Vancomycin 1,750 mg In 500 Sodium Chloride 0.9% 500 ml 500 ml @ 167 mls/hr IVPB Q12H NADIA Rx#: [id number] Output: Urine 2750 1680 435 Other: Voiding Method Indwelling Catheter Indwelling Catheter Indwelling Catheter - Labs CBC & Chem 7: 04/07/18 05:14 04/07/18 05:14 Labs: Abnormal Lab Results - Last 24 Hours (Table) 04/06/18 04/06/18 04/06/18 Range/Units 10:49 12:20 17:52 MCV (80.0-100.0) fL MCH (25.0-35.0) pg RDW (11.5-15.5) % Glucose (74-99) mg/dL POC Glucose (mg/dL) 126 H 134 H 222 H (75-99) mg/dL AST (14-36) U/L Total Protein (6.3-8.2) g/dL Albumin (3.5-5.0) g/dL 04/06/18 04/07/18 04/07/18 Range/Units 20:53 04:37 05:14 MCV 76.0 L (80.0-100.0) fL MCH 24.2 L (25.0-35.0) pg RDW 17.2 H (11.5-15.5) % Glucose (74-99) mg/dL POC Glucose (mg/dL) 279 H 259 H (75-99) mg/dL AST (14-36) U/L Total Protein (6.3-8.2) g/dL Albumin (3.5-5.0) g/dL 04/07/18 Range/Units 05:14 MCV (80.0-100.0) fL MCH (25.0-35.0) pg RDW (11.5-15.5) % Glucose 278 H (74-99) mg/dL POC Glucose (mg/dL) (75-99) mg/dL AST 41 H (14-36) U/L Total Protein 6.0 L (6.3-8.2) g/dL Albumin 3.0 L (3.5-5.0) g/dL Microbiology - Last 24 Hours (Table) 04/04/18 08:05 Blood Culture - Preliminary Blood No Growth after 48 hours
[2018-04-07 12:16] LABS: Glucose,Whole Blood 321 mg/dL (75-99)
--- NOTE | 2018-04-07 15:53 | P.PN ---
Subjective Progress Note Date: 04/07/18 Principal diagnosis: Acute hypoxic respiratory failure secondary to bilateral pneumonia associated with influenza infection. This is a 48-year-old female with history of multiple medical problems including diabetes, diabetic neuropathy, hypercholesterolemia, hypertension, seizure disorder, migraine cephalgia, patient was recently seen in the ER on 04/02/2018, and she presented at the time with mostly symptoms of fever, generalized body aches, pains, shortness of breath, and dry cough. Her chest x- ray did show evidence of extensive infiltrate in the left lung, however the patient was discharged home and for some reason no antibiotics were prescribed, and no antiviral therapy was offered. Patient was told that she has influenza, and she will recover on her own but she has to follow up with her primary care physician in 2 days. Patient came back today with worsening symptoms, and according to the note by the ER physician, the patient did not take her medications which were prescribed to her although the patient told me that no medications were prescribed to her. Patient is now complaining of worsening aches and pains, shortness of breath, dry cough, and upon evaluation in the ER, she was noted to have extensive infiltrate involving the left lung and to some extent the right lung. Patient was noted to have no evidence of leukocytosis, ABG on 44% FiO2 showed a pO2 of 56 pCO2 of 36 pH of 7.45. She was placed on a high flow nasal cannula at 8 L, her electrolytes were noted to be normal renal profile was normal. No lactic acid was noted, patient was hemodynamically stable upon presentation. She was started on Levaquin and I went ahead and added vancomycin. Patient was also started on Tamiflu. During my evaluation, the patient had mostly multiple constitutional symptoms, recurrent headaches, no blurred vision, no dizziness, no nausea no vomiting no abdominal pain no melena no hematemesis is no dysuria and no frequency no urgency. She does have history of diabetes and diabetic neuropathy with chronic pains in lower extremities. Patient was reevaluated today on 04/07/2018, remains in the ICU, I transected the patient yesterday to the ICU because of her O2 requirement, patient had to be placed on BiPAP. And she was on IPAP of 12 EPAP of 6 with FiO2 of 50%. Today she is off BiPAP, she is on high flow nasal cannula at 8 L/m. Seems to be comfortable, her chest x-ray continues to show bilateral infiltrates, however seems to have better aeration compared to the chest x-ray yesterday. Patient seems to be feeling better compared to how she felt in the last couple of days. Continues to have relatively normal CBC, no evidence of leukocytosis. Relatively normal electrolytes and renal profile. Cultures remain negative including blood cultures. Patient remains on Levaquin and vancomycin. Her echocardiogram came back normal, and her BNP level was normal. I believe the findings are mostly findings of pneumonia not pulmonary edema. Objective - Vital Signs Vital signs: Vital Signs Temp 97.7 F 04/07/18 12:00 Pulse 95 04/07/18 15:00 Resp 17 04/07/18 15:00 BP 87/77 04/07/18 15:00 Pulse Ox 92 L 04/07/18 15:00 Intake & Output 04/06/18 04/07/18 04/07/18 18:59 06:59 18:59 Intake Total 300 820 280 Output Total 2750 1680 1100 Balance -2450 -860 -820 Weight 124.1 kg Intake: IV 300 820 280 0.9 100 220 180 Magnesium Sulfate-D5w Pmx 100 100 1 gm In Dextrose/Water 1 100ml.bag @ 100 mls/hr IVPB Q1H NADIA Rx#: [id number] Potassium Chloride 10 meq 200 In Water For Injection 1 100ml.bag @ 100 mls/hr IVPB Q1HR NADIA Rx#: [id number] Vancomycin 1,750 mg In 500 Sodium Chloride 0.9% 500 ml 500 ml @ 167 mls/hr IVPB Q12H NADIA Rx#: [id number] Output: Urine 2750 1680 1100 Other: Voiding Method Indwelling Catheter Indwelling Catheter Indwelling Catheter - Exam GENERAL EXAM: Obese.On high flow nasal cannula, in no form of respiratory distress. HEENT: PERRLA, EOMI, no icterus, neck is supple, no neck masses, no JVD, no thyromegaly, no stridor, moist mucous membranes. CHEST: No chest wall deformity. LUNGS: Crackles and rhonchi noted bilaterally. Fair air entry noted. CVS: S1 and S2 normal with no audible murmur, regular rhythm. ABDOMEN: No hepatosplenomegaly, normal bowel sounds, no guarding or rigidity. SPINE: No scoliosis or deformity SKIN: No rashes CENTRAL NERVOUS SYSTEM: No focal deficits, tone is normal in all 4 extremities. EXTREMITIES: There is trace of peripheral edema. No clubbing, no cyanosis. Peripheral pulses are intact. - Labs CBC & Chem 7: 04/07/18 05:14 04/07/18 05:14 Labs: Abnormal Lab Results - Last 24 Hours (Table) 04/06/18 04/06/18 04/07/18 Range/Units 17:52 20:53 04:37 MCV (80.0-100.0) fL MCH (25.0-35.0) pg RDW (11.5-15.5) % Glucose (74-99) mg/dL POC Glucose (mg/dL) 222 H 279 H 259 H (75-99) mg/dL AST (14-36) U/L Total Protein (6.3-8.2) g/dL Albumin (3.5-5.0) g/dL 04/07/18 04/07/18 04/07/18 Range/Units 05:14 05:14 12:04 MCV 76.0 L (80.0-100.0) fL MCH 24.2 L (25.0-35.0) pg RDW 17.2 H (11.5-15.5) % Glucose 278 H (74-99) mg/dL POC Glucose (mg/dL) 321 H (75-99) mg/dL AST 41 H (14-36) U/L Total Protein 6.0 L (6.3-8.2) g/dL Albumin 3.0 L (3.5-5.0) g/dL Microbiology - Last 24 Hours (Table) 04/04/18 08:05 Blood Culture - Preliminary Blood No Growth after 72 hours Assessment and Plan Assessment: Impression: 1 acute extensive bilateral pneumonia associated with acute influenza A infection, remains on vancomycin, Levaquin, and Tamiflu. 2 acute influenza A infection. 3 acute hypoxic respiratory failure secondary to bilateral pneumonia associated with influenza infection. 4 type 2 diabetes with diabetic neuropathy 5 GERD without esophagitis 6 hyperlipidemia 7 seizure disorder presently under control 8 chronic back and neck pain, 9 migraine cephalgia 10 history of depression. Recommendation: Continue O2 at high flow nasal cannula, continue antibiotics including Levaquin and vancomycin, continue Tamiflu, continue bronchodilators/ DuoNeb, we'll continue to monitor the patient in the ICU, reviewed and discussed her chest x-ray with the patient, there is definitely some improvement , but there is still a significant infiltrate noted bilaterally. Prognosis remains guarded. Continue GI and DVT prophylaxis, continue supportive care measures. We'll continue to follow. Time with Patient: Less than 30
[2018-04-07] MEDS: methylPREDNISolone SOD SUCCI 40 MG/ML 1 ML VIAL IV SCH (16:00)
[2018-04-07 17:05] LABS: Glucose,Whole Blood 314 mg/dL (75-99)
[2018-04-07] MEDS: HYDROcodone/APAP 10-325MG 1 EACH TAB PO PRN (18:49)
[2018-04-07 21:09] LABS: Glucose,Whole Blood 278 mg/dL (75-99)
[2018-04-07] MEDS: FENOFIBRATE 160 MG TAB PO SCH (21:20)
[2018-04-07] MEDS: ATORVASTATIN 80 MG TAB PO SCH (21:20)
[2018-04-07] MEDS: DULoxetine HCL 30 MG CAPSULE.DR PO SCH (21:21)
[2018-04-08] MEDS: HYDROcodone/APAP 10-325MG 1 EACH TAB PO PRN ×2 (01:47→17:08)
[2018-04-08] MEDS: LACOSAMIDE 50 MG TABLET PO SCH ×3 (01:47→22:27)
[2018-04-08] MEDS: methylPREDNISolone SOD SUCCI 40 MG/ML 1 ML VIAL IV SCH ×2 (01:47→08:04)
[2018-04-08] MEDS: HEPARIN SODIUM,PORCINE 5,000 UNIT/ML 1 ML VIAL SQ SCH ×3 (01:47→15:29)
[2018-04-08] MEDS ORDERED: VANCOMYCIN TROUGH DUE 1 EACH MISC MISCELLANE ONE (05:00)
[2018-04-08 06:14] LABS: Anisocytosis Slight; Basophils % (A) 0 %; Eosinophils % (A) 0 %; HCT 34.8 % (34.0-46.0); Hypochromasia Moderate; Lymphocytes % (A) 11 %; MCH 24.2 pg (25.0-35.0); MCHC 31.6 g/dL (31.0-37.0); MCV 76.6 fL (80.0-100.0); Mean Platelet Volume 8.3; Microcytosis Slight; Monocytes # (A) 0.5 k/uL (0-1.0); Monocytes % (A) 6 %; Neutrophils # (A) 7.1 k/uL (1.3-7.7); Neutrophils % (A) 79 %; Platelet Count 410 k/uL (150-450); RBC 4.54 m/uL (3.80-5.40); RDW 17.2 % (11.5-15.5)
[2018-04-08 06:30] LABS: ALT 31 U/L (9-52); AST 28 U/L (14-36); Albumin 3.1 g/dL (3.5-5.0); Alkaline Phosphatase 84 U/L (38-126); Anion Gap 13 mmol/L; Blood Urea Nitrogen 22 mg/dL (7-17); Calcium 9.6 mg/dL (8.4-10.2); Carbon Dioxide 25 mmol/L (22-30); Chloride 99 mmol/L (98-107); Glucose 398 mg/dL (74-99); Magnesium 1.8 mg/dL (1.6-2.3); Potassium 4.5 mmol/L (3.5-5.1); Sodium 137 mmol/L (137-145); Total Bilirubin 0.3 mg/dL (0.2-1.3); Total Protein 6.2 g/dL (6.3-8.2)
[2018-04-08] MEDS: VANCOMYCIN 1,750 MG in SODIUM CHLORIDE 0.9% 500 ML 500 ML IVPB SCH (07:20)
[2018-04-08] MEDS: IPRATROPIUM-ALBUTEROL 3 ML NEB INHALATION SCH ×4 (07:34→19:40)
[2018-04-08] MEDS: BUDESONIDE 1 MG/2 ML NEBU INHALATION SCH ×2 (07:34→19:40)
[2018-04-08 07:41] LABS: Glucose,Whole Blood 417 mg/dL (75-99)
[2018-04-08] MEDS: POTASSIUM CHLORIDE ER 10 MEQ TAB.ER.PRT PO SCH (08:02)
[2018-04-08] MEDS: GABAPENTIN 300 MG CAP PO SCH ×2 (08:03→22:10)
[2018-04-08] MEDS: guaiFENesin 600 MG TABLET.ER PO SCH ×2 (08:03→22:11)
[2018-04-08] MEDS: DIVALPROEX ER 500 MG TAB.ER.24H PO SCH ×2 (08:03→22:11)
[2018-04-08] MEDS: PANTOPRAZOLE 40 MG TABLET PO SCH (08:04)
[2018-04-08] MEDS: LEVOFLOXACIN 750 MG TAB PO SCH (08:04)
[2018-04-08] MEDS: glipiZIDE 10 MG TAB PO SCH ×2 (08:05→17:00)
[2018-04-08] MEDS: metFORMIN 500 MG TAB PO SCH ×2 (08:05→17:01)
[2018-04-08] MEDS: TOPIRAMATE 100 MG TAB PO SCH ×2 (08:06→22:13)
[2018-04-08] MEDS: OSELTAMIVIR 75 MG CAP PO SCH ×2 (08:06→22:13)
[2018-04-08] MEDS: MAGNESIUM SULFATE-D5W PMX 1 GM in DEXTROSE/WATER 1 100ML.BAG IVPB SCH ×2 (08:07→09:18)
[2018-04-08] MEDS: INSULIN ASPART 100 UNIT/ML 1 ML 10 ML VIAL SQ SCH ×7 (08:10→22:09)
[2018-04-08] MEDS: INSULIN DETEMIR 100 UNIT/ML 10 ML VIAL SQ SCH ×2 (08:34→22:10)
--- NOTE | 2018-04-08 08:47 | XR ---
EXAMINATION TYPE: XR chest 1V portable DATE OF EXAM: 04/08/2018 COMPARISON: 04/07/2018 HISTORY: Abnormal x-ray TECHNIQUE: Single frontal view of the chest is obtained. FINDINGS: There are. Persistent diffuse bilateral airspace disease and interstitial process with sma ll effusions. Heart size stable. No pneumothorax. IMPRESSION: There is beam mild progression of diffuse airspace disease which could been the basis of diffuse pneumonia or CHF. Consider atypical pneumonia or interstitial pneumonitis or viral pneumonia .
--- NOTE | 2018-04-08 11:06 | P.PN ---
Subjective Progress Note Date: 04/08/18 48-year-old female with a past medical history significant for diabetes mellitus, hyperlipidemia, hypertension, seizure disorder, and nicotine dependence, who presented to the emergency room with a chief complaint of generalized malaise weakness and shortness of breath. The patient was seen in the emergency room on 04/02/2018 and diagnosed with influenza A. She was discharged home on Tamiflu. The patient states she continued to get worse at home. She was unable to take any of her medications and did not check her blood sugar she was at home. She reports she continued to drink alot of fluids when she was at home. She denies nausea or vomiting. Denies chest pain or pressure. She reports she was smoking two packs a day until about 6 days ago. This morning she reports her breathing feels more labored. Chest x-ray completed in the emergency room reveals bilateral diffuse airspace disease correlate for pneumonia, opportunistic infection, ARDS, or CHF. Repeat chest x-ray completed on 04/05/2018 reveals bilateral airspace disease. Correlate for pneumonia pulmonary edema. Most recent laboratory data reveals white count 6.2. Hemoglobin 11.7. Platelet count 208. Sodium 137. Potassium 3.5. BUN 9. Creatinine 0.62. Glucose 138. AST 51. ALT 26. ABGs completed on 6 L nasal cannula reveal pH 7.45. CO2 36. PO2 56. Bicarb 25. The patient was admitted to the hospital under the care of Dr. Blancas. 04/06/2018 The patient was evaluated by pulmonary yesterday after ABGs were completed revealing po2 of 56. Vancomycin was added to patients medication regimen. This morning the patient was found to be hypoxic on 8L NC. She was increased to 15L high flow but continued to have oxygen saturations less than 92%. She was placed on bipap 03/31 Fio2 of 100%. Orders were placed for the patient to transfer to ICU. Patient is lethargic this morning but arousable to verbal stimuli. 04/07/2018 Patient was transferred to ICU yesterday due to worsening hypoxia. She is alternating between high flow NC and bipap. She was evaluated by infectious disease last night. She remains on Levaquin and vancomycin. Blood cultures are negative at the 48 hour kyaw. Repeat chest x-ray reveals bibasilar airspace disease redemonstrated although some improvement in aeration is present. Echocardiogram was completed yesterday revealing ejection fraction between 50 and 55%. Trace tricuspid regurgitation and trace mitral regurgitation. 04/08/2018 Patient examined at the bedside in the ICU. Patient sitting up in the chair, showing overall improvement. She is on 1-2L NC. Sats greater than 92%. She denies shortness of breath. She remains on Solumedral 40mg IV q12 hours. Her blood sugars remain uncontrolled. Blood sugar this morning 398 and 417. The patient does reports she had [employer] and a milkshake yesterday that her family brought up for her. She states she checks her blood sugar at home but usually only twice a day because she does not want to poke her finger that many times. Chest x-ray this morning reveals mild progression of diffuse airspace disease which could be on the basis of diffuse pneumonia or CHF. BNP was within normal limits. PHYSICAL EXAM: GENERAL: This is a 48-year-old female who is awake and sitting in the chair at the time of examination. HEENT: Head is atraumatic, normocephalic. Pupils are equal, round, and reactive to light. Sclerae anicteric. Conjunctivae are clear. Mucus membranes of the mouth are moist. Neck is supple. RESPIRATORY: Improved since yesterday. Bilateral rhonchi. Crackles to left lower base. No use of accessory muscles. Patient currently on 1-2L nasal cannula. No chest wall tenderness is noted on palpation or with deep breathing. CARDIOVASCULAR: Regular rate and rhythm. S1 and S2 noted. No systolic or diastolic murmur auscultated. No JVD noted. No S3 or S4 noted. GASTROINTESTINAL: No distention noted. Abdomen soft and round. Normal active bowel sounds auscultated x 4 quadrants. No pain or tenderness noted upon palpation. INTEGUMENTARY: No cyanosis. No jaundice. No rashes noted. No cellulitis noted. EXTREMITIES: 2+ peripheral pulses. Trace bilateral lower extremity edema. No calf tenderness noted. NEUROLOGIC: Cranial nerves II-XII grossly intact. PSYCHIATRIC: Awake and alert. Oriented 3. ASSESSMENT: Bilateral pneumonia associated with acute influenza A infection Acute influenza A Acute hypoxic respiratory failure Diabetes mellitus, type II Hyperglycemia, secondary to uncontrolled diabetes mellitus and IV steroids Hypertension Hyperlipidemia Obstructive sleep apnea History of seizure disorder History of chronic back pain History of anxiety and depression Morbid obesity: BMI 41.6 Nicotine dependence, patient smokes two packs a day until 6 days ago PLAN: Pulmonary on consult. Appreciate recommendations and input Wean oxygen as tolerated Duoneb treatments Pulmicort neubulizer Continue antibiotics: currently on vanco and levaquin Continue tamiflu Increase Levemir to 80 units BID Continue oral diabetic meds Continue novolog sliding scale ACHS Add Novolog 15 units AC TID Recommend transitioning steroids to oral Consult health educator and dietary Discontinue maciel catheter. Increase activity as tolerated. Home meds as appropriate Monitor labs GI prophylaxis: Protonix 40 mg PO Daily DVT prophylaxis: Heparin 5000 units subcu every 8 hours Monitor vital signs and address as appropriate Discharge planning: Patient to return home when stable. Further recommendations pending patient's course Nurse practitioner note has been reviewed by physician. Signing provider agrees with the documented findings, assessment, and plan of care. Objective - Vital Signs Vital signs: Vital Signs Temp 97.7 F 04/08/18 08:00 Pulse 90 04/08/18 10:00 Resp 24 04/08/18 10:00 BP 108/61 04/08/18 10:00 Pulse Ox 93 L 04/08/18 10:00 Intake & Output 04/07/18 04/08/18 04/08/18 18:59 06:59 18:59 Intake Total 840 794 120 Output Total 1475 1835 250 Balance -635 -1041 -130 Intake: IV 840 187 120 0.9 240 20 20 Magnesium Sulfate-D5w Pmx 100 1 gm In Dextrose/Water 1 100ml.bag @ 100 mls/hr IVPB Q1H NADIA Rx#: [id number] Magnesium Sulfate-D5w Pmx 100 1 gm In Dextrose/Water 1 100ml.bag @ 100 mls/hr IVPB Q1H NADIA Rx#: [id number] Vancomycin 1,750 mg In 500 167 Sodium Chloride 0.9% 500 ml 500 ml @ 167 mls/hr IVPB Q12H NADIA Rx#: [id number] Intake, IV Titration 367 Amount Sodium Chloride 0.9% 1, 200 000 ml @ 20 mls/hr IV . Q24H NADIA Rx#:[id number] Vancomycin 1,750 mg In 167 Sodium Chloride 0.9% 500 ml 500 ml @ 167 mls/hr IVPB Q12H NADIA Rx#: [id number] Oral 240 Output: Urine 1475 1835 250 Other: Voiding Method Indwelling Catheter Indwelling Catheter Indwelling Catheter # Voids 2 # Bowel Movements 1 - Labs CBC & Chem 7: 04/08/18 05:38 04/08/18 05:38 Labs: Abnormal Lab Results - Last 24 Hours (Table) 04/07/18 04/07/18 04/07/18 Range/Units 12:04 16:54 20:57 Hgb (11.4-16.0) gm/dL MCV (80.0-100.0) fL MCH (25.0-35.0) pg RDW (11.5-15.5) % BUN (7-17) mg/dL Glucose (74-99) mg/dL POC Glucose (mg/dL) 321 H 314 H 278 H (75-99) mg/dL Total Protein (6.3-8.2) g/dL Albumin (3.5-5.0) g/dL 04/08/18 04/08/18 04/08/18 Range/Units 05:38 05:38 07:28 Hgb 11.0 L (11.4-16.0) gm/dL MCV 76.6 L (80.0-100.0) fL MCH 24.2 L (25.0-35.0) pg RDW 17.2 H (11.5-15.5) % BUN 22 H (7-17) mg/dL Glucose 398 H (74-99) mg/dL POC Glucose (mg/dL) 417 H (75-99) mg/dL Total Protein 6.2 L (6.3-8.2) g/dL Albumin 3.1 L (3.5-5.0) g/dL Microbiology - Last 24 Hours (Table) 04/04/18 08:05 Blood Culture - Preliminary Blood No Growth after 96 hours
[2018-04-08] MEDS: hydrALAZINE HCL 25 MG TAB PO SCH ×2 (11:37→22:12)
[2018-04-08] MEDS: LISINOPRIL-HCTZ 10-12.5 MG 1 EACH TAB PO SCH (11:38)
[2018-04-08 12:18] LABS: Glucose,Whole Blood 303 mg/dL (75-99)
--- NOTE | 2018-04-08 12:25 | P.PN ---
Subjective Progress Note Date: 04/08/18 Principal diagnosis: Acute extensive bilateral pneumonia complicated by influenza A This is a 48-year-old female with history of multiple medical problems including diabetes, diabetic neuropathy, hypercholesterolemia, hypertension, seizure disorder, migraine cephalgia, patient was recently seen in the ER on 04/02/2018, and she presented at the time with mostly symptoms of fever, generalized body aches, pains, shortness of breath, and dry cough. Her chest x- ray did show evidence of extensive infiltrate in the left lung, however the patient was discharged home and for some reason no antibiotics were prescribed, and no antiviral therapy was offered. Patient was told that she has influenza, and she will recover on her own but she has to follow up with her primary care physician in 2 days. Patient came back today with worsening symptoms, and according to the note by the ER physician, the patient did not take her medications which were prescribed to her although the patient told me that no medications were prescribed to her. Patient is now complaining of worsening aches and pains, shortness of breath, dry cough, and upon evaluation in the ER, she was noted to have extensive infiltrate involving the left lung and to some extent the right lung. Patient was noted to have no evidence of leukocytosis, ABG on 44% FiO2 showed a pO2 of 56 pCO2 of 36 pH of 7.45. She was placed on a high flow nasal cannula at 8 L, her electrolytes were noted to be normal renal profile was normal. No lactic acid was noted, patient was hemodynamically stable upon presentation. She was started on Levaquin and I went ahead and added vancomycin. Patient was also started on Tamiflu. During my evaluation, the patient had mostly multiple constitutional symptoms, recurrent headaches, no blurred vision, no dizziness, no nausea no vomiting no abdominal pain no melena no hematemesis is no dysuria and no frequency no urgency. She does have history of diabetes and diabetic neuropathy with chronic pains in lower extremities. The patient is seen today 04/06/2018 in follow-up on the regular medical floor. She did have progressive shortness of breath and required high flow nasal cannula from 8 L up to 15 L earlier this morning. She was subsequently placed on BiPAP 12/6 and 100% FiO2. She is to be transferred to the intensive care unit. Chest x-ray shows worsening pneumonia bilaterally. She is maintaining good O2 saturations now. She is more awake and alert. She is still somewhat tachycardic and tachypneic. Blood culture reveals no growth. White count 6.7. Hemoglobin 11.1. Sodium 139. Potassium 3.3. Creatinine 0.66. She had been initiated on vancomycin and Levaquin along with DuoNeb inhalations, Pulmicort inhalations, Mucinex and Tamiflu for influenza A. Patient was reevaluated today on 04/07/2018, remains in the ICU, I transected the patient yesterday to the ICU because of her O2 requirement, patient had to be placed on BiPAP. And she was on IPAP of 12 EPAP of 6 with FiO2 of 50%. Today she is off BiPAP, she is on high flow nasal cannula at 8 L/m. Seems to be comfortable, her chest x-ray continues to show bilateral infiltrates, however seems to have better aeration compared to the chest x-ray yesterday. Patient seems to be feeling better compared to how she felt in the last couple of days. Continues to have relatively normal CBC, no evidence of leukocytosis. Relatively normal electrolytes and renal profile. Cultures remain negative including blood cultures. Patient remains on Levaquin and vancomycin. Her echocardiogram came back normal, and her BNP level was normal. I believe the findings are mostly findings of pneumonia not pulmonary edema. The patient is seen today 04/08/2018 in follow-up in the intensive care unit. She is awake and alert in no acute distress. She is sitting up in a chair at the bedside. She is now maintaining good O2 saturations in the 90s on room air. She's been afebrile. Hemodynamically stable. A culture reveals no growth. White count 9.0. Hemoglobin 11.0. Creatinine 0.69. She remains on vancomycin, Levaquin, Tamiflu. She has been having issues with hyperglycemia since yesterday her family brought her in a vanilla milkshake from [facility] and she has been on IV Solu-Medrol. This has been transitioned to oral prednisone. Objective - Vital Signs Vital signs: Vital Signs Temp 97.7 F 04/08/18 08:00 Pulse 92 04/08/18 11:57 Resp 24 04/08/18 10:00 BP 108/61 04/08/18 10:00 Pulse Ox 93 L 04/08/18 10:00 Intake & Output 04/07/18 04/08/18 04/08/18 18:59 06:59 18:59 Intake Total 840 794 280 Output Total 1475 1835 650 Balance -635 -1041 -370 Intake: IV 840 187 280 0.9 240 20 80 Magnesium Sulfate-D5w Pmx 100 1 gm In Dextrose/Water 1 100ml.bag @ 100 mls/hr IVPB Q1H NADIA Rx#: [id number] Magnesium Sulfate-D5w Pmx 200 1 gm In Dextrose/Water 1 100ml.bag @ 100 mls/hr IVPB Q1H NADIA Rx#: [id number] Vancomycin 1,750 mg In 500 167 Sodium Chloride 0.9% 500 ml 500 ml @ 167 mls/hr IVPB Q12H NADIA Rx#: [id number] Intake, IV Titration 367 Amount Sodium Chloride 0.9% 1, 200 000 ml @ 20 mls/hr IV . Q24H ANDIA Rx#:[id number] Vancomycin 1,750 mg In 167 Sodium Chloride 0.9% 500 ml 500 ml @ 167 mls/hr IVPB Q12H NADIA Rx#: [id number] Oral 240 Output: Urine 1475 1835 650 Other: Voiding Method Indwelling Catheter Indwelling Catheter Indwelling Catheter # Voids 2 # Bowel Movements 1 - Exam GENERAL EXAM: Obese. Alert, in slight respiratory distress. On room air. HEAD: Normocephalic. EYES: Normal reaction of pupils, equal size. NOSE: Clear with pink turbinates. THROAT: Crowding of posterior pharynx. No erythema or exudates. NECK: Short. No masses, no JVD. CHEST: No chest wall deformity. LUNGS: Equal air entry with scattered rhonchi bilaterally. CVS: S1 and S2 normal with no audible murmur, regular rhythm. ABDOMEN: No hepatosplenomegaly, normal bowel sounds, no guarding or rigidity. SPINE: No scoliosis or deformity SKIN: No rashes CENTRAL NERVOUS SYSTEM: No focal deficits, tone is normal in all 4 extremities. EXTREMITIES: There is no peripheral edema. No clubbing, no cyanosis. Peripheral pulses are intact. - Labs CBC & Chem 7: 04/08/18 05:38 04/08/18 05:38 Labs: Abnormal Lab Results - Last 24 Hours (Table) 04/07/18 04/07/18 04/07/18 Range/Units 12:04 16:54 20:57 Hgb (11.4-16.0) gm/dL MCV (80.0-100.0) fL MCH (25.0-35.0) pg RDW (11.5-15.5) % BUN (7-17) mg/dL Glucose (74-99) mg/dL POC Glucose (mg/dL) 321 H 314 H 278 H (75-99) mg/dL Total Protein (6.3-8.2) g/dL Albumin (3.5-5.0) g/dL 04/08/18 04/08/18 04/08/18 Range/Units 05:38 05:38 07:28 Hgb 11.0 L (11.4-16.0) gm/dL MCV 76.6 L (80.0-100.0) fL MCH 24.2 L (25.0-35.0) pg RDW 17.2 H (11.5-15.5) % BUN 22 H (7-17) mg/dL Glucose 398 H (74-99) mg/dL POC Glucose (mg/dL) 417 H (75-99) mg/dL Total Protein 6.2 L (6.3-8.2) g/dL Albumin 3.1 L (3.5-5.0) g/dL Microbiology - Last 24 Hours (Table) 04/04/18 08:05 Blood Culture - Preliminary Blood No Growth after 96 hours Assessment and Plan Assessment: Impression: 1 acute hypoxic respiratory failure secondary to acute extensive bilateral pneumonia associated with acute influenza A infection, hence would be concerned about the possibility of Streptococcus pneumonia, Haemophilus influenza pneumonia, and staph aureus pneumonia. Patient is already on Levaquin, and vancomycin. In the meantime the patient will continue on Tamiflu. Improved and currently on room air. Chest x-ray continues to show diffuse pneumonia, atypical pneumonia or interstitial pneumonitis versus viral pneumonia 2 acute influenza A infection. 3 acute hypoxic respiratory failure secondary to bilateral pneumonia associated with influenza infection. 4 multiple comorbidities including diabetes and diabetic neuropathy, GERD without esophagitis, hyperlipidemia, seizure disorder, chronic back and neck pain, migraine cephalgia and history of depression. Recommendation: The patient was seen and evaluated by Dr. Smith. Chest x-ray and labs were reviewed. She is improved clinically and currently containing O2 saturations in the 90s on room air. She will be transferred out of the intensive care unit. We'll continue with vancomycin and Levaquin. Continue bronchodilators. Continue Tamiflu. On oral prednisone. She remains on heparin for DVT prophylaxis. We will continue to follow and make further recommendations based on her clinical status. I, the cosigning physician, performed a history & physical examination of the patient. Lungs sounds with bilateral rhonchi. Maintaining good O2 saturations in the 90s on room air. I discussed the assessment and plan of care with my nurse practitioner, Shyla Teixeira. I attest to the above note as dictated by her.
[2018-04-08 14:02] VITALS: BMI 44.1
[2018-04-08] MEDS ORDERED: VANCOMYCIN 1,750 MG in SODIUM CHLORIDE 0.9% 500 ML 500 ML IVPB SCH (15:00)
[2018-04-08 17:08] LABS: Glucose,Whole Blood 221 mg/dL (75-99)
[2018-04-08 21:03] LABS: Glucose,Whole Blood 183 mg/dL (75-99)
[2018-04-08] MEDS: DULoxetine HCL 30 MG CAPSULE.DR PO SCH (22:10)
[2018-04-08] MEDS: ATORVASTATIN 80 MG TAB PO SCH (22:10)
[2018-04-08] MEDS: FENOFIBRATE 160 MG TAB PO SCH (22:12)
--- NOTE | 2018-04-08 23:43 | P.PN ---
Subjective Progress Note Date: 04/08/18 48-year-old woman presents to the emergency center approximate 48 hours after her last ER visit. Through the records shows on March 29 she presented emergency center with a very severe headache was treated with medications and had complete relief of her headache was discharged home. On April 02 presented to emergency center feeling poorly thought maybe she had a fever and been ill for more than 2 days. It appears evaluations occurred and she was discharged from the emergency Center to follow up with her primary care physician. It does appear that she had an influenza A positive test, and because her symptoms are more than 48 hours she was discharged in emergency center in a stable condition. Since that time she has worsened. She has developed fever chills progressive shortness of breath and presented back to the emergency center. She has an extensive past medical history which includes COPD, diabetes mellitus, obesity, uterine cancer and has really has not been feeling poorly for approximately 4 days. She's had some fever chills body aches and progressive cough and shortness of breath. Chest x-ray at this presentation showed evidence of a pneumonic-type process and she required BiPAP therapy for adequate oxygenation. She complains quite greatly about the BiPAP therapy, which she uses CPAP at home and finds it much more comfortable. She complains about the quality of the food and does not want BiPAP any further. She relates since coming to Hospital she's feeling distinctly better as her fevers improving her body aches improved and she is less short of breath. 04/08/2018 patient is feeling considerably better today. Fevers have resolved. Shortness of breath is improved. She is now on room air with adequate saturations which is a significant improvement over the last few days. She has a dry cough without significant sputum production. Still has fatigue and malaise. Objective - Vital Signs Vital signs: Vital Signs Temp 97.4 F L 04/08/18 16:10 Pulse 84 04/08/18 19:54 Resp 19 04/08/18 16:10 BP 110/73 04/08/18 16:10 Pulse Ox 91 L 04/08/18 16:10 Intake & Output 04/08/18 04/08/18 04/09/18 06:59 18:59 06:59 Intake Total 794 280 Output Total 4785 650 Balance -1041 -370 Weight 124.1 kg Intake: IV 187 280 0.9 20 80 Magnesium Sulfate-D5w Pmx 200 1 gm In Dextrose/Water 1 100ml.bag @ 100 mls/hr IVPB Q1H NADIA Rx#: [id number] Vancomycin 1,750 mg In 167 Sodium Chloride 0.9% 500 ml 500 ml @ 167 mls/hr IVPB Q12H NADIA Rx#: [id number] Intake, IV Titration 367 Amount Sodium Chloride 0.9% 1, 200 000 ml @ 20 mls/hr IV . Q24H NADIA Rx#:[id number] Vancomycin 1,750 mg In 167 Sodium Chloride 0.9% 500 ml 500 ml @ 167 mls/hr IVPB Q12H NADIA Rx#: [id number] Oral 240 Output: Urine 1835 650 Other: Voiding Method Indwelling Catheter Toilet # Voids 2 1 # Bowel Movements 1 - Exam Pleasant superobese 48-year-old woman who appears older than her stated age HEENT: Anicteric conjunctiva are pink and moist nasal mucosa grossly intact without significant lesions, there is no thrush. Patient complains of discomfort in the posterior pharynx but no lesions were visualized Neck: The neck is supple without significant lymphadenopathy or thyromegaly. Lungs: Symmetrical air entry is noted expiratory wheezes are heard basilar crackles bilaterally without significant dullness or egophony Heart: Irregular with an audible S1 and S2 soft S4 no distinct murmur click or rub PMI is has fever thrill Abdomen: Obese, Positive bowel sounds soft and nontender without palpable masses or organomegaly. There was no guarding or rebound. Extremities: The upper extremities have excellent pulses they are symmetric, no significant petechiae or telangiectasia. No splinter hemorrhages were noted. Lower extremities evidence of some history of edema mild at this time no open ulcerations are seen Neuro: Awake alert oriented to person place and time. There are no acute new gross focal sensory motor deficits. Patient is irritable. - Labs CBC & Chem 7: 04/08/18 05:38 04/08/18 05:38 Labs: Abnormal Lab Results - Last 24 Hours (Table) 04/08/18 04/08/18 04/08/18 Range/Units 05:38 05:38 07:28 Hgb 11.0 L (11.4-16.0) gm/dL MCV 76.6 L (80.0-100.0) fL MCH 24.2 L (25.0-35.0) pg RDW 17.2 H (11.5-15.5) % BUN 22 H (7-17) mg/dL Glucose 398 H (74-99) mg/dL POC Glucose (mg/dL) 417 H (75-99) mg/dL Total Protein 6.2 L (6.3-8.2) g/dL Albumin 3.1 L (3.5-5.0) g/dL 04/08/18 04/08/18 04/08/18 Range/Units 12:05 16:56 20:52 Hgb (11.4-16.0) gm/dL MCV (80.0-100.0) fL MCH (25.0-35.0) pg RDW (11.5-15.5) % BUN (7-17) mg/dL Glucose (74-99) mg/dL POC Glucose (mg/dL) 303 H 221 H 183 H (75-99) mg/dL Total Protein (6.3-8.2) g/dL Albumin (3.5-5.0) g/dL Microbiology - Last 24 Hours (Table) 04/04/18 08:05 Blood Culture - Preliminary Blood No Growth after 96 hours Laboratory Results WBC 9.0 k/uL (3.8-10.6) 04/08/18 05:38 RBC 4.54 m/uL (3.80-5.40) 04/08/18 05:38 Hgb 11.0 gm/dL (11.4-16.0) L 04/08/18 05:38 Hct 34.8 % (34.0-46.0) 04/08/18 05:38 MCV 76.6 fL (80.0-100.0) L 04/08/18 05:38 MCH 24.2 pg (25.0-35.0) L 04/08/18 05:38 MCHC 31.6 g/dL (31.0-37.0) 04/08/18 05:38 RDW 17.2 % (11.5-15.5) H 04/08/18 05:38 Plt Count 410 k/uL (150-450) 04/08/18 05:38 Neutrophils % 79 % 04/08/18 05:38 Neutrophils % (Manual) 60 % 04/07/18 05:14 Band Neutrophils % 10 % 04/07/18 05:14 Lymphocytes % 11 % 04/08/18 05:38 Lymphocytes % (Manual) 27 % 04/07/18 05:14 Monocytes % 6 % 04/08/18 05:38 Monocytes % (Manual) 3 % 04/07/18 05:14 Eosinophils % 0 % 04/08/18 05:38 Basophils % 0 % 04/08/18 05:38 Neutrophils # 7.1 k/uL (1.3-7.7) 04/08/18 05:38 Neutrophils # (Manual) 3.20 k/uL (1.3-7.7) 04/07/18 05:14 Lymphocytes # 1.0 k/uL (1.0-4.8) 04/08/18 05:38 Lymphocytes # (Manual) 1.24 k/uL (1.0-4.8) 04/07/18 05:14 Monocytes # 0.5 k/uL (0-1.0) 04/08/18 05:38 Monocytes # (Manual) 0.14 k/uL (0-1.0) 04/07/18 05:14 Eosinophils # 0.0 k/uL (0-0.7) 04/08/18 05:38 Basophils # 0.0 k/uL (0-0.2) 04/08/18 05:38 Nucleated RBCs 0 /100 WBC (0-0) 04/07/18 05:14 Manual Slide Review Performed 04/07/18 05:14 Hypochromasia Moderate 04/08/18 05:38 Poikilocytosis Slight 04/07/18 05:14 Anisocytosis Slight 04/08/18 05:38 Microcytosis Slight 04/08/18 05:38 Sample Site LRAD 04/05/18 14:04 ABG pH 7.45 (7.35-7.45) 04/05/18 14:04 ABG pCO2 36 mmHg (35-45) 04/05/18 14:04 ABG pO2 56 mmHg (83-108) L* 04/05/18 14:04 ABG HCO3 25 mmol/L (21-25) 04/05/18 14:04 ABG O2 Saturation 90.1 % (94-97) L 04/05/18 14:04 ABG Base Excess 1.6 mmol/L 04/05/18 14:04 Rios Test Yes 04/05/18 14:04 FiO2 44 % 04/05/18 14:04 Sodium 137 mmol/L (137-145) 04/08/18 05:38 Potassium 4.5 mmol/L (3.5-5.1) 04/08/18 05:38 Chloride 99 mmol/L (98-107) 04/08/18 05:38 Carbon Dioxide 25 mmol/L (22-30) 04/08/18 05:38 Anion Gap 13 mmol/L 04/08/18 05:38 BUN 22 mg/dL (7-17) H 04/08/18 05:38 Creatinine 0.69 mg/dL (0.52-1.04) 04/08/18 05:38 Est GFR (CKD-EPI)AfAm >90 (>60 ml/min/1.73 sqM) 04/08/18 05:38 Est GFR (CKD-EPI)NonAf >90 (>60 ml/min/1.73 sqM) 04/08/18 05:38 Glucose 398 mg/dL (74-99) H 04/08/18 05:38 POC Glucose (mg/dL) 183 mg/dL (75-99) H 04/08/18 20:52 POC Glu Solar Panel Technician Bryan Phillips 04/08/18 20:52 Plasma Lactic Acid Lobo 1.7 mmol/L (0.7-2.0) 04/04/18 08:05 Calcium 9.6 mg/dL (8.4-10.2) 04/08/18 05:38 Phosphorus 3.7 mg/dL (2.5-4.5) 04/07/18 05:14 Magnesium 1.8 mg/dL (1.6-2.3) 04/08/18 05:38 Total Bilirubin 0.3 mg/dL (0.2-1.3) 04/08/18 05:38 AST 28 U/L (14-36) 04/08/18 05:38 ALT 31 U/L (9-52) 04/08/18 05:38 Alkaline Phosphatase 84 U/L (38-126) 04/08/18 05:38 NT-Pro-B Natriuret Pep 114 pg/mL 04/05/18 08:21 Total Protein 6.2 g/dL (6.3-8.2) L 04/08/18 05:38 Albumin 3.1 g/dL (3.5-5.0) L 04/08/18 05:38 Urine Color Yellow 04/04/18 09:41 Urine Appearance Clear (Clear) 04/04/18 09:41 Urine pH 6.0 (5.0-8.0) 04/04/18 09:41 Ur Specific [place] 1.011 (1.001-1.035) 04/04/18 09:41 Urine Protein Trace (Negative) H 04/04/18 09:41 Urine Glucose (UA) 4+ (Negative) H 04/04/18 09:41 Urine Ketones 2+ (Negative) H 04/04/18 09:41 Urine Blood Moderate (Negative) H 04/04/18 09:41 Urine Nitrite Negative (Negative) 04/04/18 09:41 Urine Bilirubin Negative (Negative) 04/04/18 09:41 Urine Urobilinogen <2.0 mg/dL (<2.0) 04/04/18 09:41 Ur Leukocyte Esterase Negative (Negative) 04/04/18 09:41 Urine RBC 38 /hpf (0-5) H 04/04/18 09:41 Urine WBC 2 /hpf (0-5) 04/04/18 09:41 Ur Squamous Epith Cells 1 /hpf (0-4) 04/04/18 09:41 Urine Bacteria Occasional /hpf (None) H 04/04/18 09:41 Urine Mucus Rare /hpf (None) H 04/04/18 09:41 Vancomycin Trough 10.5 ug/mL 04/08/18 05:38 Acetone, Qual Positive (Negative) 04/04/18 08:05 Microbiology 04/04/18 08:05 Blood Blood Culture - Preliminary No Growth after 96 hours Assessment and Plan (1) Influenza A Narrative/Plan: 48-year-old woman presents to the emergency center for the third time in a relatively short period of time, now with significant shortness of breath myalgias arthralgias and fever with abnormality to her chest x-ray. On the more recent ER visit she was on evidence of influenza A positive status but apparently because she had been ill for several days she was opted not to be given antiviral therapy. Patient since has had worsening of her status and presented back to Hospital where she without evidence of what appears to be a viral pneumonia due to influenza A. Tamiflu has been started and blood cultures are in process therapy for pneumonia and therapy for potential staph aureus/MRSA pneumonia he has been started pending further culture data. Fortunately doing a little better this afternoon she is off BiPAP and is quite insistent that she does not want it replaced, she is instructed if her action nation continues to decline he would need to be reapplied. Cultures are being monitored and will further help direct antibiotic therapy. 04/08/2018 the patient has further improvement. She is now off of oxygen therapy. With adequate saturations. Fevers are resolving. Shortness of breath is improved. Receiving respiratory treatments and her course of antimicrobial therapy. As noted the testing was positive for influenza A admission. Plan will be to complete her course of treatment for her complicated pneumonia this is likely viral however given the x-ray changes concerns to atypical or bacterial and constantly will complete a course of levofloxacin also which is sent to her pharmacy. Needs to follow with her advertising strategist post discharge. Current Visit: Yes Status: Acute Code(s): J10.1 - FLU DUE TO OTH IDENT INFLUENZA VIRUS W OTH RESP MANIFEST SNOMED Code(s): 704542761 (2) Viral pneumonitis Current Visit: Yes Status: Acute Code(s): J12.9 - VIRAL PNEUMONIA, UNSPECIFIED SNOMED Code(s): 28692779 (3) Uncontrolled diabetes mellitus Current Visit: Yes Status: Acute Code(s): E11.65 - TYPE 2 DIABETES MELLITUS WITH HYPERGLYCEMIA SNOMED Code(s): 16026870
[2018-04-09] MEDS: HEPARIN SODIUM,PORCINE 5,000 UNIT/ML 1 ML VIAL SQ SCH ×2 (00:55→09:02)
[2018-04-09] MEDS: HYDROcodone/APAP 10-325MG 1 EACH TAB PO PRN (00:55)
[2018-04-09 05:55] LABS: Anisocytosis Slight; Basophils # (A) 0.1 k/uL (0-0.2); Basophils % (A) 1 %; Eosinophils % (A) 0 %; HCT 34.6 % (34.0-46.0); HGB 10.8 gm/dL (11.4-16.0); Hypochromasia Slight; Lymphocytes # (A) 3.7 k/uL (1.0-4.8); Lymphocytes % (A) 28 %; MCH 23.6 pg (25.0-35.0); MCHC 31.1 g/dL (31.0-37.0); MCV 75.6 fL (80.0-100.0); Mean Platelet Volume 7.9; Microcytosis Slight; Monocytes # (A) 1.1 k/uL (0-1.0); Monocytes % (A) 8 %; Neutrophils # (A) 8.2 k/uL (1.3-7.7); Neutrophils % (A) 61 %; Platelet Count 444 k/uL (150-450); RBC 4.57 m/uL (3.80-5.40); RDW 17.1 % (11.5-15.5); WBC 13.4 k/uL (3.8-10.6)
[2018-04-09] MEDS ORDERED: VANCOMYCIN TROUGH DUE 1 EACH MISC MISCELLANE ONE (06:00)
[2018-04-09 06:07] LABS: ALT 28 U/L (9-52); AST 25 U/L (14-36); Albumin 3.1 g/dL (3.5-5.0); Alkaline Phosphatase 63 U/L (38-126); Anion Gap 10 mmol/L; Blood Urea Nitrogen 22 mg/dL (7-17); Calcium 8.7 mg/dL (8.4-10.2); Carbon Dioxide 26 mmol/L (22-30); Chloride 103 mmol/L (98-107); Magnesium 1.7 mg/dL (1.6-2.3); Potassium 3.6 mmol/L (3.5-5.1); Sodium 139 mmol/L (137-145); Total Bilirubin 0.3 mg/dL (0.2-1.3); Total Protein 6.1 g/dL (6.3-8.2)
[2018-04-09 06:29] LABS: Glucose,Whole Blood 49 mg/dL (75-99)
[2018-04-09 06:44] LABS: Glucose,Whole Blood 55 mg/dL (75-99)
--- NOTE | 2018-04-09 06:46 | XR ---
EXAMINATION TYPE: XR chest 1V portable DATE OF EXAM: 04/09/2018 HISTORY: pneumonia. REFERENCE: Previous study dated 04/08/2018. FINDINGS: There is improved aeration of both lungs. The heart is not enlarged. I cannot exclude a sma ll left effusion. IMPRESSION: IMPROVED AERATION, BOTH LUNGS.
[2018-04-09 07:01] LABS: Glucose 38 mg/dL (74-99)
[2018-04-09] MEDS: IPRATROPIUM-ALBUTEROL 3 ML NEB INHALATION SCH ×2 (07:15→11:26)
[2018-04-09] MEDS: BUDESONIDE 1 MG/2 ML NEBU INHALATION SCH (07:15)
[2018-04-09 07:36] LABS: Glucose,Whole Blood 87 mg/dL (75-99)
[2018-04-09 08:57] VITALS: BP 119/73; PULSE 100; RESP 17; TEMP 98
[2018-04-09] MEDS: LACOSAMIDE 50 MG TABLET PO SCH (08:57)
[2018-04-09] MEDS: glipiZIDE 10 MG TAB PO SCH (08:58)
[2018-04-09] MEDS: metFORMIN 500 MG TAB PO SCH (09:00)
[2018-04-09] MEDS: LISINOPRIL-HCTZ 10-12.5 MG 1 EACH TAB PO SCH (09:00)
[2018-04-09] MEDS ORDERED: FUROSEMIDE 40 MG TAB PO SCH (09:00)
[2018-04-09] MEDS ORDERED: predniSONE 20 MG TAB PO SCH (09:00)
[2018-04-09] MEDS: guaiFENesin 600 MG TABLET.ER PO SCH (09:01)
[2018-04-09] MEDS: TOPIRAMATE 100 MG TAB PO SCH (09:01)
[2018-04-09] MEDS: POTASSIUM CHLORIDE ER 10 MEQ TAB.ER.PRT PO SCH (09:01)
[2018-04-09] MEDS: LEVOFLOXACIN 750 MG TAB PO SCH (09:02)
[2018-04-09] MEDS: PANTOPRAZOLE 40 MG TABLET PO SCH (09:02)
[2018-04-09] MEDS: GABAPENTIN 300 MG CAP PO SCH (09:02)
[2018-04-09] MEDS: INSULIN ASPART 100 UNIT/ML 1 ML 10 ML VIAL SQ SCH ×2 (09:03→09:04)
[2018-04-09] MEDS: hydrALAZINE HCL 25 MG TAB PO SCH (09:03)
[2018-04-09] MEDS: DIVALPROEX ER 500 MG TAB.ER.24H PO SCH (09:03)
[2018-04-09] MEDS: INSULIN DETEMIR 100 UNIT/ML 10 ML VIAL SQ SCH (10:31)
--- NOTE | 2018-04-09 10:37 | P.DS ---
Providers Date of admission: 04/04/18 09:58 Expected date of discharge: 04/09/18 Attending physician: Adriel Lima Consults: 04/05/18 14:20 Consult Physician Routine Consulting Provider: Edgardo Smith Consult Reason/Comments: hypoxia Do you want consulting provider notified?: Yes 04/06/18 14:43 Consult Physician Routine Consulting Provider: Terry Stroud Consult Reason/Comments: bilateral pneumonia, influenza A Do you want consulting provider notified?: Yes Primary care physician: Adriel Lima - Discharge Diagnosis(es) (1) Essential (primary) hypertension Current Visit: Yes Status: Acute (2) MILY (obstructive sleep apnea) Current Visit: Yes Status: Acute (3) Tobacco abuse Current Visit: Yes Status: Acute (4) Tobacco abuse counseling Current Visit: Yes Status: Acute (5) Morbid obesity Current Visit: Yes Status: Acute (6) Influenza A Current Visit: Yes Status: Acute (7) Pneumonia Current Visit: Yes Status: Acute (8) Uncontrolled diabetes mellitus Current Visit: Yes Status: Acute (9) Viral pneumonitis Current Visit: Yes Status: Acute (10) Migraine Current Visit: No Status: Acute Hospital Course: 48-year-old female with a past medical history significant for diabetes mellitus, hyperlipidemia, hypertension, seizure disorder, and nicotine dependence, who presented to the emergency room with a chief complaint of generalized malaise weakness and shortness of breath. The patient was seen in the emergency room on 04/02/2018 and diagnosed with influenza A. She was discharged home on Tamiflu. The patient states she continued to get worse at home. She was unable to take any of her medications and did not check her blood sugar she was at home. She reports she continued to drink alot of fluids when she was at home. She denies nausea or vomiting. Denies chest pain or pressure. She reports she was smoking two packs a day until about 6 days ago. This morning she reports her breathing feels more labored. Chest x-ray completed in the emergency room reveals bilateral diffuse airspace disease correlate for pneumonia, opportunistic infection, ARDS, or CHF. Repeat chest x-ray completed on 04/05/2018 reveals bilateral airspace disease. Correlate for pneumonia pulmonary edema. Most recent laboratory data reveals white count 6.2. Hemoglobin 11.7. Platelet count 208. Sodium 137. Potassium 3.5. BUN 9. Creatinine 0.62. Glucose 138. AST 51. ALT 26. ABGs completed on 6 L nasal cannula reveal pH 7.45. CO2 36. PO2 56. Bicarb 25. The patient was admitted to the hospital under the care of Dr. Blancas. 04/06/2018 The patient was evaluated by pulmonary yesterday after ABGs were completed revealing po2 of 56. Vancomycin was added to patients medication regimen. This morning the patient was found to be hypoxic on 8L NC. She was increased to 15L high flow but continued to have oxygen saturations less than 92%. She was placed on bipap 03/31 Fio2 of 100%. Orders were placed for the patient to transfer to ICU. Patient is lethargic this morning but arousable to verbal stimuli. 04/07/2018 Patient was transferred to ICU yesterday due to worsening hypoxia. She is alternating between high flow NC and bipap. She was evaluated by infectious disease last night. She remains on Levaquin and vancomycin. Blood cultures are negative at the 48 hour kyaw. Repeat chest x-ray reveals bibasilar airspace disease redemonstrated although some improvement in aeration is present. Echocardiogram was completed yesterday revealing ejection fraction between 50 and 55%. Trace tricuspid regurgitation and trace mitral regurgitation. 04/08/2018 Patient examined at the bedside in the ICU. Patient sitting up in the chair, showing overall improvement. She is on 1-2L NC. Sats greater than 92%. She denies shortness of breath. She remains on Solumedral 40mg IV q12 hours. Her blood sugars remain uncontrolled. Blood sugar this morning 398 and 417. The patient does reports she had [employer] and a milkshake yesterday that her family brought up for her. She states she checks her blood sugar at home but usually only twice a day because she does not want to poke her finger that many times. Chest x-ray this morning reveals mild progression of diffuse airspace disease which could be on the basis of diffuse pneumonia or CHF. BNP was within normal limits. 04/09/2018 Patient doing well overnight, however this morning she had had an episode of hypoglycemia. She been getting NovoLog 15 units with meals and at bedtime. He is also on Lantus 80 units twice a day. Her pulse ox has been adequate above 92 % on room air with a past 12 hours. She's been able to move around quite a bit. She has remained in the intensive care unit as he has no beds for her to go to. She is cleared by pulmonology for discharge. Patient Condition at Discharge: Fair Plan - Discharge Summary Discharge Rx Participant: No New Discharge Prescriptions: New Levofloxacin [Levaquin] 500 mg PO DAILY #7 tab Oseltamivir [Tamiflu] 75 mg PO Q12HR #10 cap Atorvastatin [Lipitor] 80 mg PO HS #30 tab guaiFENesin [Mucinex] 1,200 mg PO Q12HR #20 tablet.er Insulin Lispro [Admelog] 100 unit SQ ACHS #3 pen Lisinopril-Hctz 10-12.5 mg [Zestoretic 10-12.5] 1 each PO DAILY #30 tab predniSONE 10 mg PO DAILY #55 tab Continue Gabapentin [Neurontin] 300 mg PO BID Lacosamide [Vimpat] 100 mg PO BID Beclomethasone Dipropionate [Qvar 40 mcg] 2 puff INHALATION RT-BID Fenofibrate 160 mg PO HS DULoxetine HCL [Cymbalta] 90 mg PO HS Divalproex ER [Depakote ER] 500 mg PO BID Furosemide [Lasix] 40 mg PO DAILY hydrALAZINE HCL [Apresoline] 25 mg PO BID Hydrocodone/Acetaminophen [[place] 10-325] 1 tab PO Q8H PRN PRN Reason: Pain Insulin Glargine [Lantus] 70 unit SQ BID LORazepam [Ativan] 1 mg PO TID PRN PRN Reason: Anxiety metFORMIN HCL 1,000 mg PO BID Omeprazole [PriLOSEC] 40 mg PO DAILY Potassium Chloride [Klor-Con 10] 10 meq PO DAILY SUMAtriptan SUCCINATE [Imitrex] 100 mg PO BID PRN MDD 200 MG PRN Reason: Migraine Headache Topiramate [Topamax] 100 mg PO BID Changed Albuterol Inhaler [Ventolin Hfa Inhaler] 2 puff INHALATION RT-Q6H PRN #1 puff PRN Reason: Shortness Of Breath Discontinued glipiZIDE [Glucotrol] 20 mg PO AC-BID Discharge Medication List Gabapentin [Neurontin] 300 mg PO BID 10/18/13 [History] Lacosamide [Vimpat] 100 mg PO BID 01/16/14 [History] Beclomethasone Dipropionate [Qvar 40 mcg] 2 puff INHALATION RT-BID 04/03/16 [ History] DULoxetine HCL [Cymbalta] 90 mg PO HS 04/03/16 [History] Divalproex ER [Depakote ER] 500 mg PO BID 04/03/16 [History] Fenofibrate 160 mg PO HS 04/03/16 [History] Furosemide [Lasix] 40 mg PO DAILY 04/04/18 [History] Hydrocodone/Acetaminophen [[place] 10-325] 1 tab PO Q8H PRN 04/04/18 [History] Insulin Glargine [Lantus] 70 unit SQ BID 04/04/18 [History] LORazepam [Ativan] 1 mg PO TID PRN 04/04/18 [History] Omeprazole [PriLOSEC] 40 mg PO DAILY 04/04/18 [History] Potassium Chloride [Klor-Con 10] 10 meq PO DAILY 04/04/18 [History] SUMAtriptan SUCCINATE [Imitrex] 100 mg PO BID PRN MDD 200 MG 04/04/18 [History] Topiramate [Topamax] 100 mg PO BID 04/04/18 [History] hydrALAZINE HCL [Apresoline] 25 mg PO BID 04/04/18 [History] metFORMIN HCL 1,000 mg PO BID 04/04/18 [History] Levofloxacin [Levaquin] 500 mg PO DAILY #7 tab 04/08/18 [Rx] Oseltamivir [Tamiflu] 75 mg PO Q12HR #10 cap 04/08/18 [Rx] Albuterol Inhaler [Ventolin Hfa Inhaler] 2 puff INHALATION RT-Q6H PRN #1 puff [Rx] Atorvastatin [Lipitor] 80 mg PO HS #30 tab 04/09/18 [Rx] Insulin Lispro [Admelog] 100 unit SQ ACHS #3 pen 04/09/18 [Rx] Lisinopril-Hctz 10-12.5 mg [Zestoretic 10-12.5] 1 each PO DAILY #30 tab [Rx] guaiFENesin [Mucinex] 1,200 mg PO Q12HR #20 tablet.er 04/09/18 [Rx] predniSONE 10 mg PO DAILY #55 tab 04/09/18 [Rx] Follow up Appointment(s)/Referral(s): Adriel Lima Jr, DO [Primary Care Provider] - 1-2 days Edgardo Smith MD [STAFF PHYSICIAN] - 1 Week Discharge Disposition: HOME SELF-CARE
[2018-04-09] MEDS: SODIUM CHLORIDE 0.9% 1,000 ML IV SCH (10:41)
[2018-04-09 10:48] LABS: Glucose,Whole Blood 176 mg/dL (75-99)
--- NOTE | 2018-04-09 12:56 | P.PN ---
Subjective Progress Note Date: 04/09/18 Principal diagnosis: Acute hypoxic respiratory failure secondary to bilateral pneumonia associated with influenza infection. This is a 48-year-old female with history of multiple medical problems including diabetes, diabetic neuropathy, hypercholesterolemia, hypertension, seizure disorder, migraine cephalgia, patient was recently seen in the ER on 04/02/2018, and she presented at the time with mostly symptoms of fever, generalized body aches, pains, shortness of breath, and dry cough. Her chest x- ray did show evidence of extensive infiltrate in the left lung, however the patient was discharged home and for some reason no antibiotics were prescribed, and no antiviral therapy was offered. Patient was told that she has influenza, and she will recover on her own but she has to follow up with her primary care physician in 2 days. Patient came back today with worsening symptoms, and according to the note by the ER physician, the patient did not take her medications which were prescribed to her although the patient told me that no medications were prescribed to her. Patient is now complaining of worsening aches and pains, shortness of breath, dry cough, and upon evaluation in the ER, she was noted to have extensive infiltrate involving the left lung and to some extent the right lung. Patient was noted to have no evidence of leukocytosis, ABG on 44% FiO2 showed a pO2 of 56 pCO2 of 36 pH of 7.45. She was placed on a high flow nasal cannula at 8 L, her electrolytes were noted to be normal renal profile was normal. No lactic acid was noted, patient was hemodynamically stable upon presentation. She was started on Levaquin and I went ahead and added vancomycin. Patient was also started on Tamiflu. During my evaluation, the patient had mostly multiple constitutional symptoms, recurrent headaches, no blurred vision, no dizziness, no nausea no vomiting no abdominal pain no melena no hematemesis is no dysuria and no frequency no urgency. She does have history of diabetes and diabetic neuropathy with chronic pains in lower extremities. Patient was reevaluated today on 04/07/2018, remains in the ICU, I transected the patient yesterday to the ICU because of her O2 requirement, patient had to be placed on BiPAP. And she was on IPAP of 12 EPAP of 6 with FiO2 of 50%. Today she is off BiPAP, she is on high flow nasal cannula at 8 L/m. Seems to be comfortable, her chest x-ray continues to show bilateral infiltrates, however seems to have better aeration compared to the chest x-ray yesterday. Patient seems to be feeling better compared to how she felt in the last couple of days. Continues to have relatively normal CBC, no evidence of leukocytosis. Relatively normal electrolytes and renal profile. Cultures remain negative including blood cultures. Patient remains on Levaquin and vancomycin. Her echocardiogram came back normal, and her BNP level was normal. I believe the findings are mostly findings of pneumonia not pulmonary edema. The patient is seen today 04/08/2018 in follow-up in the intensive care unit. She is awake and alert in no acute distress. She is sitting up in a chair at the bedside. She is now maintaining good O2 saturations in the 90s on room air. She's been afebrile. Hemodynamically stable. A culture reveals no growth. White count 9.0. Hemoglobin 11.0. Creatinine 0.69. She remains on vancomycin, Levaquin, Tamiflu. She has been having issues with hyperglycemia since yesterday her family brought her in a [employer] milkshake from [facility] and she has been on IV Solu-Medrol. This has been transitioned to oral prednisone. Reevaluated today on 04/09/2018, patient remains in the ICU, but she has made a significant improvement over the last couple of days. She is now off oxygen, she is saturating well on room air. Feeling great, no cough no wheezing no shortness of breath. Patient is actually ready to be discharged home. X-ray is significantly improved. And clinically the patient is feeling much better. WBC count is 13.4 hemoglobin is 10.8, rest of the labs were unremarkable. Objective - Vital Signs Vital signs: Vital Signs Temp 98 F 04/09/18 08:00 Pulse 100 04/09/18 08:00 Resp 17 04/09/18 08:00 BP 119/73 04/09/18 08:00 Pulse Ox 92 L 04/09/18 08:00 Intake & Output 04/08/18 04/09/18 04/09/18 18:59 06:59 18:59 Intake Total 280 Output Total 650 200 Balance -370 -200 Weight 124.1 kg 123.3 kg Intake: IV 280 0.9 80 Magnesium Sulfate-D5w Pmx 200 1 gm In Dextrose/Water 1 100ml.bag @ 100 mls/hr IVPB Q1H [facility] Rx#: [id number] Output: Urine 650 200 Other: Voiding Method Toilet Toilet Toilet # Voids 1 1 - Exam GENERAL EXAM: Obese.on room air, in no distress. HEENT: PERRLA, EOMI, no icterus, neck is supple, no neck masses, no JVD, no thyromegaly, no stridor, moist mucous membranes. CHEST: No chest wall deformity. LUNGS: Clear throughout, no crackles or rhonchi or wheezes. CVS: S1 and S2 normal with no audible murmur, regular rhythm. ABDOMEN: No hepatosplenomegaly, normal bowel sounds, no guarding or rigidity. SPINE: No scoliosis or deformity SKIN: No rashes CENTRAL NERVOUS SYSTEM: No focal deficits, tone is normal in all 4 extremities. EXTREMITIES: There is trace of peripheral edema. No clubbing, no cyanosis. Peripheral pulses are intact. - Labs CBC & Chem 7: 04/09/18 05:14 04/09/18 05:14 Labs: Abnormal Lab Results - Last 24 Hours (Table) 04/08/18 04/08/18 04/09/18 Range/Units 16:56 20:52 05:14 WBC 13.4 H (3.8-10.6) k/uL Hgb 10.8 L (11.4-16.0) gm/dL MCV 75.6 L (80.0-100.0) fL MCH 23.6 L (25.0-35.0) pg RDW 17.1 H (11.5-15.5) % Neutrophils # 8.2 H (1.3-7.7) k/uL Monocytes # 1.1 H (0-1.0) k/uL BUN (7-17) mg/dL Glucose (74-99) mg/dL POC Glucose (mg/dL) 221 H 183 H (75-99) mg/dL Total Protein (6.3-8.2) g/dL Albumin (3.5-5.0) g/dL 04/09/18 04/09/18 04/09/18 Range/Units 05:14 06:17 06:32 WBC (3.8-10.6) k/uL Hgb (11.4-16.0) gm/dL MCV (80.0-100.0) fL MCH (25.0-35.0) pg RDW (11.5-15.5) % Neutrophils # (1.3-7.7) k/uL Monocytes # (0-1.0) k/uL BUN 22 H (7-17) mg/dL Glucose 38 L* (74-99) mg/dL POC Glucose (mg/dL) 49 L 55 L (75-99) mg/dL Total Protein 6.1 L (6.3-8.2) g/dL Albumin 3.1 L (3.5-5.0) g/dL 04/09/18 Range/Units 10:35 WBC (3.8-10.6) k/uL Hgb (11.4-16.0) gm/dL MCV (80.0-100.0) fL MCH (25.0-35.0) pg RDW (11.5-15.5) % Neutrophils # (1.3-7.7) k/uL Monocytes # (0-1.0) k/uL BUN (7-17) mg/dL Glucose (74-99) mg/dL POC Glucose (mg/dL) 176 H (75-99) mg/dL Total Protein (6.3-8.2) g/dL Albumin (3.5-5.0) g/dL Microbiology - Last 24 Hours (Table) 04/04/18 08:05 Blood Culture - Preliminary Blood No Growth after 120 hours Assessment and Plan Assessment: Impression: 1 acute extensive bilateral pneumonia associated with acute influenza A infection, remains on vancomycin, Levaquin, and Tamiflu. 2 acute influenza A infection. 3 acute hypoxic respiratory failure secondary to bilateral pneumonia associated with influenza infection. 4 type 2 diabetes with diabetic neuropathy 5 GERD without esophagitis 6 hyperlipidemia 7 seizure disorder presently under control 8 chronic back and neck pain, 9 migraine cephalgia 10 history of depression. Recommendation: Continue oral Levaquin, continue present meds and her usual meds, discontinued vancomycin, agree with discharge planning today, and follow-up on outpatient basis. Time with Patient: Less than 30
[2018-04-09 14:15] LABS: Hemoglobin A1C 10.7 % (4.0-6.0)
== END 2018-04-09 11:09 | disposition home or self-care (01) | DRG 193 ==
LOC: EC 06:38 → 4MS4W 09:58 → 2SICU 04-06 12:12
PROVIDERS: ADMIT Family Medicine; ATTEND Family Medicine
PROC: 5A09557 Assistance with Respiratory Ventilation, Greater than 96 Consecutive Hours, Continuous Positive Airway Pressure (ICD-10-PCS; principal; 2018-04-06)
DX: J10.01 Influenza due to other identified influenza virus with the same other identified influenza virus pneumonia (principal); J96.01 Acute respiratory failure with hypoxia; Z68.41 Body mass index [BMI] 40.0-44.9, adult; J44.0 Chronic obstructive pulmonary disease with (acute) lower respiratory infection; J12.9 Viral pneumonia, unspecified; E66.01 Morbid (severe) obesity due to excess calories; E11.649 Type 2 diabetes mellitus with hypoglycemia without coma; E11.40 Type 2 diabetes mellitus with diabetic neuropathy, unspecified; E11.65 Type 2 diabetes mellitus with hyperglycemia; I10 Essential (primary) hypertension; K21.9 Gastro-esophageal reflux disease without esophagitis; E78.5 Hyperlipidemia, unspecified; G40.909 Epilepsy, unspecified, not intractable, without status epilepticus; G43.909 Migraine, unspecified, not intractable, without status migrainosus; T38.3X6A Underdosing of insulin and oral hypoglycemic [antidiabetic] drugs, initial encounter; T38.0X5A Adverse effect of glucocorticoids and synthetic analogues, initial encounter; E78.00 Pure hypercholesterolemia, unspecified; G47.33 Obstructive sleep apnea (adult) (pediatric); M54.2 Cervicalgia; M54.9 Dorsalgia, unspecified; G89.29 Other chronic pain; F32.9 Major depressive disorder, single episode, unspecified; F41.9 Anxiety disorder, unspecified; F17.210 Nicotine dependence, cigarettes, uncomplicated; Z71.6 Tobacco abuse counseling; Z71.3 Dietary counseling and surveillance; Z91.138 Patient's unintentional underdosing of medication regimen for other reason; Z79.4 Long term (current) use of insulin; Z79.51 Long term (current) use of inhaled steroids; Z79.899 Other long term (current) drug therapy; Z87.442 Personal history of urinary calculi; Z85.41 Personal history of malignant neoplasm of cervix uteri; Z90.49 Acquired absence of other specified parts of digestive tract; Z98.51 Tubal ligation status; Z88.2 Allergy status to sulfonamides; Z88.8 Allergy status to other drugs, medicaments and biological substances; Z82.49 Family history of ischemic heart disease and other diseases of the circulatory system; Z82.3 Family history of stroke; Z80.8 Family history of malignant neoplasm of other organs or systems; Z81.8 Family history of other mental and behavioral disorders
CPT/HCPCS: 36415; 36600; 71045; 71046; 80053; 80202; 81001; 82009; 82805; 83036; 83605; 83735; 83880; 84100; 84132; 85025; 87040; 93005; 93306; 94640; 94660; 94760; 96361; 96365; 96366; 99285

== ENCOUNTER → 2019-02-13 | Outpatient (CLI) | payer OTHER ==
[2019-02-13 08:01] LABS: Anisocytosis Slight; HCT 40.4 % (34.0-46.0); HGB 13.9 gm/dL (11.4-16.0); Hypochromasia Slight; MCH 27.3 pg (25.0-35.0); MCHC 34.3 g/dL (31.0-37.0); MCV 79.5 fL (80.0-100.0); Mean Platelet Volume 8.1; Microcytosis Slight; Platelet Count 338 k/uL (150-450); RBC 5.09 m/uL (3.80-5.40); RDW 17.1 % (11.5-15.5); WBC 11.4 k/uL (3.8-10.6)
[2019-02-13 11:40] LABS: Hemoglobin A1C 13.3 % (4.0-6.0)
[2019-02-13 14:35] LABS: Ferritin 11.7 ng/mL (10.0-291.0); Iron Saturation 5.6 (12.00-45.00)
[2019-02-13 15:09] LABS: T4, Free (Free Thyroxine) 0.9 ng/dL (0.80-1.80)
[2019-02-13 16:29] LABS: Albumin 4.1 g/dL (3.80-4.90); Albumin/Globulin Ratio 2.05 (1.60-3.17); Anion Gap 17.3 mmol/L (4.00-12.00); BUN/Creat Ratio 18.33 Ratio (12.00-20.00); Calcium 9.4 mg/dL (8.7-10.3); Carbon Dioxide 18.7 mmol/L (21.6-31.8); Potassium 4.2 mmol/L (3.5-5.5); Total Bilirubin 0.1 mg/dL (0.2-1.2); Total Protein 6.1 g/dL (6.2-8.2)
== END | disposition home or self-care (01) ==
LOC: LABWHC1 02-09 09:50
PROVIDERS: ATTEND Psychiatry & Neurology Pain Medicine
DX: Z51.81 Encounter for therapeutic drug level monitoring (principal); R53.83 Other fatigue
CPT/HCPCS: 36415; 80053; 80164; 80183; 82550; 82728; 83036; 83540; 83550; 84439; 84443; 84466; 84481; 85027

== ENCOUNTER 2019-03-06 09:10 | Inpatient (IN) | payer OTHER ==
[2019-03-06] MEDS ORDERED: HYDROmorphone 0.5 MG/0.5 ML SYRINGE IVP STA (09:27)
[2019-03-06] MEDS ORDERED: ONDANSETRON 4 MG/2 ML VIAL IVP STA (09:27)
[2019-03-06] MEDS ORDERED: ASPIRIN 81 MG PO STA (09:27)
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
[2019-03-06 10:19] LABS: Amorphous Sediment,Urine Rare /hpf; Appearance,Urine Cloudy (Clear); Bilirubin,Urine Negative (Negative); Blood,Urine Negative (Negative); Color,Urine Light Yellow; Glucose,Urine (UA) 4+ (Negative); Ketones,Urine Trace (Negative); Leukocyte Esterase,Urine Small (Negative); Nitrite,Urine Negative (Negative); Protein,Urine Negative (Negative); RBC,Urine 4 /hpf (0-5); Specific Gravity,Urine 1.031 (1.001-1.035); Squamous Epithelial Cell,Urine 13 /hpf (0-4); Urobilinogen,Urine <2.0 mg/dL (<2.0)
[2019-03-06 10:22] LABS: Anisocytosis Slight; Basophils # (A) 0.1 k/uL (0-0.2); Basophils % (A) 1 %; Eosinophils # (A) 0.1 k/uL (0-0.7); Eosinophils % (A) 1 %; HCT 38.3 % (34.0-46.0); Lymphocytes # (A) 3.1 k/uL (1.0-4.8); Lymphocytes % (A) 31 %; MCH 26.7 pg (25.0-35.0); MCV 78.6 fL (80.0-100.0); Mean Platelet Volume 7.2; Microcytosis Slight; Monocytes # (A) 0.4 k/uL (0-1.0); Monocytes % (A) 4 %; Neutrophils # (A) 5.8 k/uL (1.3-7.7); Neutrophils % (A) 59 %; Platelet Count 293 k/uL (150-450); RBC 4.87 m/uL (3.80-5.40); RDW 16.9 % (11.5-15.5); WBC 9.9 k/uL (3.8-10.6)
[2019-03-06 10:29] LABS: ALT 17 U/L (9-52); AST 15 U/L (14-36); African American GFR (CKD) >90 (>60 ml/min/1.73 sqM); Albumin 3.8 g/dL (3.5-5.0); Alkaline Phosphatase 148 U/L (38-126); Anion Gap 11 mmol/L; Blood Urea Nitrogen 13 mg/dL (7-17); Calcium 9.9 mg/dL (8.4-10.2); Carbon Dioxide 23 mmol/L (22-30); Chloride 100 mmol/L (98-107); Glucose 374 mg/dL (74-99); Magnesium 1.4 mg/dL (1.6-2.3); Sodium 134 mmol/L (137-145); Total Bilirubin 0.4 mg/dL (0.2-1.3); Total Protein 7.2 g/dL (6.3-8.2)
--- NOTE | 2019-03-06 10:30 | XR ---
EXAMINATION TYPE: XR chest 2V DATE OF EXAM: 03/06/2019 COMPARISON: Prior chest x-ray dated 07/18/2018 HISTORY: Chest pain TECHNIQUE: Frontal and lateral views of the chest are obtained. FINDINGS: Exam is expiratory and rotated. There are overlying cardiac leads. Heart size likely stabl e accounting for differences in technique. Interstitium appears prominently. No evident pneumothorax or pleural effusion. IMPRESSION: Expiratory rotated exam. Prominence of interstitium may be technical. Follow-up as indic ated.
[2019-03-06 10:31] LABS: INR 0.9 (<1.2); Partial Thromboplastin Time 25.7 sec (22.0-30.0); Prothrombin Time 9.7 sec (9.0-12.0)
--- NOTE | 2019-03-06 11:13 | US ---
EXAMINATION TYPE: US gallbladder DATE OF EXAM: 03/06/2019 COMPARISON: US 2017 CLINICAL HISTORY: pain. Abdomen pain and N/V x 1 day EXAM MEASUREMENTS: Liver Length: 22.5 cm Gallbladder Wall: 0.2 cm CBD: 0.5 cm Right Kidney: 11.9 x 6.3 x 6.3 cm Difficult and limited study due to patient body habitus Pancreas: visualized portions wnl, limited by overlying midline bowel gas Liver: enlarged, attenuating, heterogeneous, decreased visualization of vessels suggestive of fatty infiltrate Gallbladder: borderline hydropic, no stones seen Evidence for sonographic Crespo's sign: yes CBD: visualized portions wnl, limited by overlying bowel gas Right Kidney: 0.7cm echogenic focus mid pole IMPRESSION: 1. Borderline hydropic size of the gallbladder and positive sonographic Crespo sign however no other findings of acute cholecystitis. HIDA scan could be considered. 2. Sonographic findings most commonly related to hepatic steatosis. Correlate with liver function inez ts. 3. Nonobstructing subcentimeter right renal calculus.
[2019-03-06] MEDS ORDERED: NITROGLYCERIN SL TABS 0.4 MG TAB SUBLINGUAL STA (11:24)
[2019-03-06] MEDS ORDERED: NITROGLYCERIN SL TABS 0.4 MG TAB SUBLINGUAL PRN (11:26)
[2019-03-06] MEDS ORDERED: HEPARIN SODIUM,PORCINE 5,000 UNIT/ML 1 ML VIAL IV ONE (11:26)
[2019-03-06] MEDS ORDERED: HEPARIN SOD,PORK IN 0.45% NACL 25,000 UNIT in 0.45% NACL 1 250ML.BAG IV SCH (11:30)
[2019-03-06] MEDS ORDERED: MAG HYDROX/AL HYDROX/SIMETH 30 ML, HYOSCYAMINE ELIXIR 10 ML, LIDOCAINE VISCOUS 2% 10 ML PO STA ×3 (11:33)
[2019-03-06] MEDS ORDERED: KETOROLAC 30 MG/ML 1 ML VIAL IVP STA (11:34)
[2019-03-06 13:26] VITALS: BMI 40.0
[2019-03-06] MEDS ORDERED: HYDROcodone/APAP 10-325MG 1 EACH TAB PO PRN (14:29)
[2019-03-06] MEDS ORDERED: IPRATROPIUM-ALBUTEROL 3 ML NEB INHALATION PRN (14:36)
[2019-03-06] MEDS ORDERED: Magnesium Replacement Protocol 1 EACH MISC MISCELLANE PRN (14:38)
--- NOTE | 2019-03-06 15:16 | P.CRDCN ---
History of Present Illness History of present illness: HISTORY OF PRESENTING ILLNESS This is a pleasant 48-year-old female past medical history significant for hypertension, dyslipidemia, diabetes mellitus, gastroesophageal reflux dise ase, asthma, obstructive sleep apnea, morbid obesity and chronic nicotine dependence. She presented with epigastric pain, nausea and vomiting. 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 We have been asked to see him in consultation for chest pain. She is seen and examined sitting up in bed in no acute distress. She states last evening she ate a bowl of chili and a salad. Shortly thereafter she stared experiencing an intense pain in the epigastric reigon. She states it was sharp and excruciating. There was no radiation to the arm, back, neck or jaw. She also felt quite nauseated and started throwing up multiple times. She denies palpitations, dizziness, diaphoresis or shortness of breath. Pain intensity has improved however she still has a dull ache in the epigastric region that is reproducible on exam. DIAGNOSTICS EKG reveals sinus mechanism heart rate of 98. Chest xray negative for an acute cardiopulmonary process with some interstitial prominence. Laboratory reviewed, WBC 9.9, hemoglobin 13, platelets 293, sodium 134, potassium 4, creatinine 0.58, magnesium 1.4, alkaline phosphatase 148 and cardiac enzymes negative 1. Current cardiac medications include lisinopril/HCTZ 10/12.5 mg daily, atorvastatin 80 mg daily, Lasix 40 mg daily, hydralazine 25 mg twice a day and fenofibrate 160 mg at bedtime. Most recent echocardiogram obtained March 2018 reveals preserved LV systolic function with ejection fraction 50-55%. REVIEW OF SYSTEMS At the time of my exam: CONSTITUTIONAL: Denies fever or chills. CARDIOVASCULAR: Denies chest pain, shortness of breath, orthopnea, PND or palpitations. RESPIRATORY: Denies cough. GASTROINTESTINAL: Complains of epigastric/abdominal pain, diarrhea, constipation, nausea or vomiting. MUSCULOSKELETAL: Denies myalgias. NEUROLOGIC: Denies numbness, tingling or weakness. ENDOCRINE: Denies fatigue, weight change, polydipsia or polyurina. GENITOURINARY: Denies burning, hematuria or urgency with micturation. HEMATOLOGIC: Denies history of anemia or bleeding. PHYSICAL EXAMINATION Blood pressure 100/58 heart rate 53 afebrile and maintaining oxygen saturaiton on room air. CONSTITUTIONAL: No apparent distress. HEENT: Head is normocephalic. Pupils are equal, round. Sclerae anicteric. Mucous membranes of the mouth are moist. No JVD. No carotid bruit. CHEST EXAMINATION: Lungs are clear to auscultation. No chest wall tenderness is noted on palpation or with deep breathing. HEART EXAMINATION: Regular rate and rhythm. S1, S2 heard. No murmurs, gallops or rub. ABDOMEN: Soft, nontender. Positive bowel sounds. EXTREMITIES: 2+ peripheral pulses, no lower extremity edema and no calf tenderness. NEUROLOGIC EXAMINATION: Patient is awake, alert and oriented x3. ASSESSMENT Chest pain, atypical for angina. Hypertension Dyslipidemia Diabetes mellitus Chronic nicotine dependence Morbid obesity, BMI 40 PLAN Obtain second troponin level, then d/c the heparin if normal. Ongoing evaluation of GI etiology per primary medical team. Thank you kindly for this consultation. Nurse Practitioner note has been reviewed, I agree with a documented findings and plan of care. Patient was seen and examined. Past Medical History Past Medical History: Asthma, Cancer, Diabetes Mellitus, GERD/Reflux, Hyperlipidemia, Hypertension, Pneumonia, Renal Disease, Seizure Disorder, Sleep Apnea/CPAP/BIPAP Additional Past Medical History / Comment(s): IDDM type II, neuropathy bilateral legs, cervical cancer with surgery, bilateral pneumonia with influenza A, seizures since age 10 yrs after a fall out of back of pickup-no seizure in past few years, MILY but CPap mask is broken, cervical and back pain, DDD, migraines, kidney stones-passed on her own. History of Any Multi-Drug Resistant Organisms: None Reported Past Surgical History: Appendectomy, Tubal Ligation Additional Past Surgical History / Comment(s): back/neck injections, cone procedure for uterine cancer, cyst removed from tailbone, R ovarian cyst removed. Past Anesthesia/Blood Transfusion Reactions: No Reported Reaction, Motion Sickness Additional Past Anesthesia/Blood Transfusion Reaction / Comment(s): clausterphobia Past Psychological History: Anxiety, Depression Additional Psychological History / Comment(s): Pt resides with family. 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 They have 2 boxer dogs. She drives some. Smoking Status: Current every day smoker Past Alcohol Use History: Rare Additional Past Alcohol Use History / Comment(s): Pt started smoking in 1980 and is a 2 ppd smoker. Past Drug Use History: None Reported - Past Family History Mother Family Medical History: CVA/TIA, Hypertension Additional Family Medical History / Comment(s): depression/anxiety Father Family Medical History: COPD Additional Family Medical History / Comment(s): mesothelioma Medications and Allergies Home Medications Medication Instructions Recorded Confirmed Type Gabapentin [Neurontin] 300 mg PO BID 10/18/13 03/06/19 History Lacosamide [Vimpat] 100 mg PO BID 01/16/14 03/06/19 History DULoxetine HCL [Cymbalta] 90 mg PO HS 04/03/16 03/06/19 History Divalproex ER [Depakote ER] 500 mg PO BID 04/03/16 03/06/19 History Fenofibrate 160 mg PO HS 04/03/16 03/06/19 History Furosemide [Lasix] 40 mg PO DAILY 04/04/18 03/06/19 History Hydrocodone/Acetaminophen [Mitchell 1 tab PO Q8H PRN 04/04/18 03/06/19 History 10-325] Insulin Glargine [Lantus] 70 unit SQ BID 04/04/18 03/06/19 History Omeprazole [PriLOSEC] 40 mg PO DAILY 04/04/18 03/06/19 History Potassium Chloride [Klor-Con 10] 10 meq PO DAILY 04/04/18 03/06/19 History SUMAtriptan SUCCINATE [Imitrex] 100 mg PO BID PRN MDD 200 MG 04/04/18 03/06/19 History hydrALAZINE HCL [Apresoline] 25 mg PO BID 04/04/18 03/06/19 History metFORMIN HCL 1,000 mg PO BID 04/04/18 03/06/19 History Atorvastatin [Lipitor] 80 mg PO HS #30 tab 04/09/18 03/06/19 Rx Albuterol Inhaler [Ventolin Hfa 1 - 2 puff INHALATION RT-Q6H PRN 03/06/19 03/06/19 History Inhaler] Beclomethasone Dip 80 Mcg/Puff 2 puff INHALATION RT-BID 03/06/19 03/06/19 History [Qvar 80 mcg] Insulin Lispro [Admelog Solostar] 20 unit SQ W/SUPPER 03/06/19 03/06/19 History Lisinopril-Hctz 10-12.5 mg 1 tab PO DAILY 03/06/19 03/06/19 History [Zestoretic 10-12.5] OXcarbazepine 600 mg PO BID 03/06/19 03/06/19 History Topiramate 200 mg PO BID 03/06/19 03/06/19 History Allergies Allergy/AdvReac Type Severity Reaction Status Date / Time sulfamethoxazole Allergy Unknown Verified 03/06/19 11:11 [From Bactrim] trimethoprim [From Bactrim] Allergy Unknown Verified 03/06/19 11:11 metoclopramide HCl AdvReac Confusion Verified 03/06/19 11:11 [From Reglan] Physical Exam Vitals: Vital Signs Temp Pulse Pulse Resp BP BP Pulse Ox 03/06/19 14:32 53 L 17 03/06/19 13:58 97.4 F L 53 L 17 129/74 96 03/06/19 13:31 20 03/06/19 13:00 53 L 20 100/58 93 L 03/06/19 12:00 61 20 101/69 94 L 03/06/19 11:16 20 94 L 03/06/19 11:00 79 114/83 93 L 03/06/19 10:00 96 20 109/77 94 L 03/06/19 09:59 47 L 03/06/19 09:58 20 03/06/19 09:37 97.5 F L 95 20 109/77 94 L 03/06/19 09:12 97.8 F 109 H 18 163/81 98 Intake and Output 03/05/19 03/06/19 03/06/19 22:59 06:59 14:59 Other: Voiding Method Toilet Weight 112.491 kg Results 03/06/19 09:55 03/06/19 09:55 Cardiac Enzymes 03/06/19 03/06/19 Range/Units 09:55 09:55 AST 15 (14-36) U/L Troponin I <0.012 (0.000-0.034) ng/mL Coagulation 03/06/19 Range/Units 09:55 PT 9.7 (9.0-12.0) sec APTT 25.7 (22.0-30.0) sec CBC 03/06/19 Range/Units 09:55 WBC 9.9 (3.8-10.6) k/uL RBC 4.87 (3.80-5.40) m/uL Hgb 13.0 (11.4-16.0) gm/dL Hct 38.3 (34.0-46.0) % Plt Count 293 (150-450) k/uL Comprehensive Metabolic Panel 03/06/19 Range/Units 09:55 Sodium 134 L (137-145) mmol/L Potassium 4.0 (3.5-5.1) mmol/L Chloride 100 (98-107) mmol/L Carbon Dioxide 23 (22-30) mmol/L BUN 13 (7-17) mg/dL Creatinine 0.58 (0.52-1.04) mg/dL Glucose 374 H (74-99) mg/dL Calcium 9.9 (8.4-10.2) mg/dL AST 15 (14-36) U/L ALT 17 (9-52) U/L Alkaline Phosphatase 148 H (38-126) U/L Total Protein 7.2 (6.3-8.2) g/dL Albumin 3.8 (3.5-5.0) g/dL Current Medications Generic Name Dose Route Start Last Admin Trade Name Freq PRN Reason Stop Dose Admin Hydrocodone Bitart/Acetaminophen 1 each 03/06/19 14:29 Mitchell 10 PO Q8H PRN Moderate Pain Albuterol/Ipratropium 3 ml 03/06/19 16:00 Duoneb 0.5 Mg-3 Mg/3 Ml Soln INHALATION RT-QID NADIA Albuterol/Ipratropium 3 ml 03/06/19 14:36 Duoneb 0.5 Mg-3 Mg/3 Ml Soln INHALATION RT-Q2H PRN Shortness Of Breath Or Wheezing Aspirin 325 mg 03/07/19 09:00 Aspirin PO DAILY [facility] Atorvastatin Calcium 80 mg 03/06/19 21:00 Lipitor PO HS [facility] Divalproex Sodium 500 mg 03/06/19 21:00 Depakote Er PO BID [facility] Duloxetine HCl 90 mg 03/06/19 21:00 Cymbalta PO HS NADIA Fenofibrate 160 mg 03/06/19 21:00 Lofibra PO HS [facility] Fluticasone Propionate 2 puff 03/06/19 20:00 Flovent 110 Mcg Inhaler INHALATION RT-BID [facility] Furosemide 40 mg 03/07/19 09:00 Lasix PO DAILY [facility] Gabapentin 300 mg 03/06/19 21:00 Neurontin PO BID [facility] Lisinopril/HCTZ 1 each 03/07/19 09:00 Zestoretic 10-12.5 PO DAILY [facility] Hydralazine HCl 25 mg 03/06/19 21:00 Apresoline PO BID [facility] Heparin Sodium/Sodium Chloride 250 mls @ 9.899 mls/hr 03/06/19 11:30 03/06/19 11:44 25,000 unit/ Sodium Chloride IV 8.8 units/kg/hr .Q24H [facility] 9.899 mls/hr Administration Protocol 8.8 UNITS/KG/HR Insulin Aspart 0 unit 03/06/19 17:30 Novolog SQ ACHS [facility] Protocol Insulin Detemir 70 unit 03/06/19 21:00 Levemir SQ BID@0700,2100 [facility] Lacosamide 100 mg 03/06/19 21:00 Vimpat PO BID [facility] Metformin HCl 1,000 mg 03/06/19 21:00 Glucophage PO BID [facility] Miscellaneous Information 1 each 03/06/19 14:38 Magnesium Per Protocol MISCELLANE DAILY PRN Per Protocol Protocol Nitroglycerin 0.4 mg 03/06/19 11:26 Nitrostat SUBLINGUAL Q5M PRN Chest Pain Oxcarbazepine 600 mg 03/06/19 21:00 Trileptal PO BID [facility] Pantoprazole Sodium 40 mg 03/07/19 07:30 Protonix PO AC-BRKFST [facility] Potassium Chloride 10 meq 03/07/19 09:00 K-Dur 10 PO DAILY [facility] Topiramate 200 mg 03/06/19 21:00 Topamax PO BID [facility] Intake and Output 03/05/19 03/06/19 03/06/19 22:59 06:59 14:59 Other: Voiding Method Toilet Weight 112.491 kg Patient Weight 03/07/19 06:59 Weight 112.491 kg 03/06/19 09:55 03/06/19 09:55
[2019-03-06] MEDS: IPRATROPIUM-ALBUTEROL 3 ML NEB INHALATION SCH ×2 (15:42→19:36)
[2019-03-06 16:50] LABS: Glucose,Whole Blood 289 mg/dL (75-99)
[2019-03-06] MEDS: INSULIN ASPART (NovoLOG) 100 UNIT/ML VIAL SQ SCH ×2 (16:55→20:29)
[2019-03-06] MEDS: FLUTICASONE 110 MCG INHALER INHALATION SCH (19:36)
[2019-03-06 20:01] LABS: Glucose,Whole Blood 246 mg/dL (75-99)
[2019-03-06] MEDS: ATORVASTATIN 80 MG TAB PO SCH (20:26)
[2019-03-06] MEDS: LACOSAMIDE 50 MG TABLET PO SCH (20:27)
[2019-03-06] MEDS: OXcarbazepine 300 MG TAB PO SCH (20:27)
[2019-03-06] MEDS: GABAPENTIN 300 MG CAP PO SCH (20:28)
[2019-03-06] MEDS: TOPIRAMATE 100 MG TAB PO SCH (20:28)
[2019-03-06] MEDS: DULoxetine HCL 30 MG CAPSULE.DR PO SCH (20:28)
[2019-03-06] MEDS: DIVALPROEX ER 500 MG TAB.ER.24H PO SCH (20:28)
[2019-03-06] MEDS: metFORMIN 500 MG TAB PO SCH (20:28)
[2019-03-06] MEDS: FENOFIBRATE 160 MG TAB PO SCH (20:28)
[2019-03-06] MEDS: hydrALAZINE HCL 25 MG TAB PO SCH (20:28)
[2019-03-06] MEDS: INSULIN DETEMIR (LEVEMIR) 100 UNIT/ML SYR SQ SCH (20:29)
[2019-03-07 05:40] LABS: Anisocytosis Slight; Basophils # (A) 0.1 k/uL (0-0.2); Basophils % (A) 1 %; Eosinophils # (A) 0.2 k/uL (0-0.7); Eosinophils % (A) 2 %; HCT 39.7 % (34.0-46.0); HGB 12.8 gm/dL (11.4-16.0); Hypochromasia Slight; Lymphocytes % (A) 34 %; MCH 25.7 pg (25.0-35.0); MCHC 32.2 g/dL (31.0-37.0); Mean Platelet Volume 7.4; Microcytosis Slight; Monocytes # (A) 0.5 k/uL (0-1.0); Monocytes % (A) 4 %; Neutrophils # (A) 6.5 k/uL (1.3-7.7); Neutrophils % (A) 55 %; Platelet Count 291 k/uL (150-450); RBC 4.97 m/uL (3.80-5.40); RDW 16.9 % (11.5-15.5); WBC 11.7 k/uL (3.8-10.6)
[2019-03-07 05:56] LABS: African American GFR (CKD) >90 (>60 ml/min/1.73 sqM); Anion Gap 10 mmol/L; Blood Urea Nitrogen 17 mg/dL (7-17); Calcium 9.2 mg/dL (8.4-10.2); Carbon Dioxide 23 mmol/L (22-30); Chloride 105 mmol/L (98-107); Cholesterol 262 mg/dL (<200); Glucose 74 mg/dL (74-99); HDL Cholesterol 24 mg/dL (40-60); Magnesium 1.6 mg/dL (1.6-2.3); Potassium 3.8 mmol/L (3.5-5.1); Sodium 138 mmol/L (137-145)
[2019-03-07 06:42] LABS: Triglycerides 2199 mg/dL (<150)
[2019-03-07 06:57] LABS: Glucose,Whole Blood 89 mg/dL (75-99)
--- NOTE | 2019-03-07 08:14 | P.PN ---
Subjective HISTORY OF PRESENTING ILLNESS This is a pleasant 48-year-old female past medical history significant for hypertension, dyslipidemia, diabetes mellitus, gastroesophageal reflux disease, asthma, obstructive sleep apnea, morbid obesity and chronic nicotine dependence. She presented with epigastric pain, nausea and vomiting. 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 She is seen and examined sitting up in bed in no acute distress. She continues to feel a dull ache in the epigastric region, worse on palpitation. Denies chest pain, shortness of breath, dizziness or palpitations. Blood pressure 149/96 heart rate 93 afebrile and maintaining oxygen saturation on room air. Laboratory data reviewed, cardiac enzymes negative x2, WBC 11.7, hgb 12.8, platelets 291, sodium 138, otassium 3.8, creatinine 0.57, triglycerides 2199. Repeat EKG this morning reveals sinus mechanism with no acute changes. PHYSICAL EXAMINATION CONSTITUTIONAL: No apparent distress. HEENT: Head is normocephalic. Pupils are equal, round. Sclerae anicteric. Mucous membranes of the mouth are moist. No JVD. No carotid bruit. CHEST EXAMINATION: Lungs are clear to auscultation. No chest wall tenderness is noted on palpation or with deep breathing. HEART EXAMINATION: Regular rate and rhythm. S1, S2 heard. No murmurs, gallops or rub. EXTREMITIES: 2+ peripheral pulses, no lower extremity edema and no calf tenderness. ASSESSMENT Chest pain, atypical for angina. Hypertension Dyslipidemia Diabetes mellitus Chronic nicotine dependence Morbid obesity, BMI 40 PLAN An acute coronary event has been ruled out. Symptoms are atypical for angina and likely related to GI etiology. Recommend addition of lovaza 4 grams per day as an outpatient. Ongoing medical management per primary care team. Lifestyle modifications recommend for lowering or cholesterol as well as smoking cessation. Nurse Practitioner note has been reviewed, I agree with a documented findings and plan of care. Patient was seen and examined. Objective - Vital Signs Vital signs: Vital Signs Temp 98.3 F 03/07/19 07:51 Pulse 93 03/07/19 07:51 Resp 18 03/07/19 07:51 BP 146/96 03/07/19 07:51 Pulse Ox 95 03/07/19 07:51 Intake & Output 03/06/19 03/07/19 03/07/19 18:59 06:59 18:59 Intake Total 240 Balance 240 Weight 112.491 kg Intake: Oral 240 Other: Voiding Method Toilet Toilet # Voids 1 - Labs CBC & Chem 7: 03/07/19 04:58 03/07/19 04:58 Labs: Abnormal Lab Results - Last 24 Hours (Table) 03/06/19 03/06/19 03/06/19 Range/Units 09:55 09:55 09:55 WBC (3.8-10.6) k/uL MCV 78.6 L (80.0-100.0) fL RDW 16.9 H (11.5-15.5) % Sodium 134 L (137-145) mmol/L Glucose 374 H (74-99) mg/dL POC Glucose (mg/dL) (75-99) mg/dL Magnesium 1.4 L (1.6-2.3) mg/dL Alkaline Phosphatase 148 H (38-126) U/L Triglycerides (<150) mg/dL Cholesterol (<200) mg/dL HDL Cholesterol (40-60) mg/dL Urine Appearance Cloudy H (Clear) Urine Glucose (UA) 4+ H (Negative) Urine Ketones Trace H (Negative) Ur Leukocyte Esterase Small H (Negative) Ur Squamous Epith Cells 13 H (0-4) /hpf Amorphous Sediment Rare H (None) /hpf 03/06/19 03/06/19 03/07/19 Range/Units 16:48 20:00 04:58 WBC 11.7 H (3.8-10.6) k/uL MCV (80.0-100.0) fL RDW 16.9 H (11.5-15.5) % Sodium (137-145) mmol/L Glucose (74-99) mg/dL POC Glucose (mg/dL) 289 H 246 H (75-99) mg/dL Magnesium (1.6-2.3) mg/dL Alkaline Phosphatase (38-126) U/L Triglycerides (<150) mg/dL Cholesterol (<200) mg/dL HDL Cholesterol (40-60) mg/dL Urine Appearance (Clear) Urine Glucose (UA) (Negative) Urine Ketones (Negative) Ur Leukocyte Esterase (Negative) Ur Squamous Epith Cells (0-4) /hpf Amorphous Sediment (None) /hpf 03/07/19 Range/Units 04:58 WBC (3.8-10.6) k/uL MCV (80.0-100.0) fL RDW (11.5-15.5) % Sodium (137-145) mmol/L Glucose (74-99) mg/dL POC Glucose (mg/dL) (75-99) mg/dL Magnesium (1.6-2.3) mg/dL Alkaline Phosphatase (38-126) U/L Triglycerides 2199 H (<150) mg/dL Cholesterol 262 H (<200) mg/dL HDL Cholesterol 24 L (40-60) mg/dL Urine Appearance (Clear) Urine Glucose (UA) (Negative) Urine Ketones (Negative) Ur Leukocyte Esterase (Negative) Ur Squamous Epith Cells (0-4) /hpf Amorphous Sediment (None) /hpf
[2019-03-07] MEDS: INSULIN ASPART (NovoLOG) 100 UNIT/ML VIAL SQ SCH ×4 (08:37→21:38)
[2019-03-07] MEDS: POTASSIUM CHLORIDE ER 10 MEQ TAB.ER.PRT PO SCH (08:43)
[2019-03-07] MEDS: LACOSAMIDE 50 MG TABLET PO SCH ×2 (08:44→21:40)
[2019-03-07] MEDS: ASPIRIN 81 MG PO SCH (08:44)
[2019-03-07] MEDS: PANTOPRAZOLE 40 MG TABLET PO SCH (08:44)
[2019-03-07] MEDS: GABAPENTIN 300 MG CAP PO SCH ×2 (08:44→21:39)
[2019-03-07] MEDS: FUROSEMIDE 40 MG TAB PO SCH (08:44)
[2019-03-07] MEDS: hydrALAZINE HCL 25 MG TAB PO SCH ×2 (08:44→21:39)
[2019-03-07] MEDS: TOPIRAMATE 100 MG TAB PO SCH ×2 (08:45→21:42)
[2019-03-07] MEDS: DIVALPROEX ER 500 MG TAB.ER.24H PO SCH ×2 (08:45→21:43)
[2019-03-07] MEDS: LISINOPRIL-HCTZ 10-12.5 MG 1 EACH TAB PO SCH (08:45)
[2019-03-07] MEDS: OXcarbazepine 300 MG TAB PO SCH ×2 (08:46→21:42)
[2019-03-07] MEDS: metFORMIN 500 MG TAB PO SCH ×2 (08:52→21:39)
[2019-03-07] MEDS ORDERED: ASPIRIN 325 MG TAB PO SCH (09:00)
[2019-03-07] MEDS: IPRATROPIUM-ALBUTEROL 3 ML NEB INHALATION SCH ×3 (11:10→19:25)
[2019-03-07] MEDS: FLUTICASONE 110 MCG INHALER INHALATION SCH ×2 (11:10→19:22)
[2019-03-07] MEDS: INSULIN DETEMIR (LEVEMIR) 100 UNIT/ML SYR SQ SCH ×2 (12:10→21:38)
[2019-03-07 13:31] LABS: Hemoglobin A1C 12.5 % (4.0-6.0)
--- NOTE | 2019-03-07 13:36 | NM ---
EXAMINATION TYPE: NM hepatobiliary w CCK DATE OF EXAM: 03/07/2019 COMPARISON: Abdominal ultrasound dated 03/06/2019 HISTORY: Hydropic gallbladder and abdominal pain TECHNIQUE: After the intravenous administration of 4.79 mCi Tc 99m Mebrofenin hepatobiliary scintigra phy is performed. Immediate images post injection. FINDINGS: There is satisfactory initial accumulation of tracer by the liver. The gallbladder is visualized wit hin 16 minutes. The small bowel activity is noted within 18 minutes. At one hour CCK was administer ed, patient was injected with 2.3 mcg of Kinevac, and gallbladder ejection fraction is calculated at 1 %, abnormally. Therefore there is no scintigraphic evidence of cystic or common bile duct obstruct ion to suggest acute cholecystitis or gallbladder dyskinesia. IMPRESSION: Biliary dyskinesia with ejection fraction of 1%.
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
[2019-03-07 14:03] LABS: Glucose,Whole Blood 156 mg/dL (75-99)
[2019-03-07 16:43] LABS: Glucose,Whole Blood 203 mg/dL (75-99)
[2019-03-07 19:40] VITALS: RESP 18
[2019-03-07 20:24] LABS: Glucose,Whole Blood 238 mg/dL (75-99)
[2019-03-07] MEDS: ATORVASTATIN 80 MG TAB PO SCH (21:39)
[2019-03-07] MEDS: DULoxetine HCL 30 MG CAPSULE.DR PO SCH (21:40)
[2019-03-07] MEDS: FENOFIBRATE 160 MG TAB PO SCH (21:40)
[2019-03-08 06:42] LABS: Glucose,Whole Blood 69 mg/dL (75-99)
[2019-03-08] MEDS ORDERED: DEXTROSE 10 % IN WATER 150 ML IV STA (07:00)
[2019-03-08 07:26] LABS: Glucose,Whole Blood 148 mg/dL (75-99)
[2019-03-08 07:30] VITALS: BP 102/72; PULSE 80; TEMP 97.5
[2019-03-08] MEDS: FLUTICASONE 110 MCG INHALER INHALATION SCH (07:32)
[2019-03-08] MEDS: IPRATROPIUM-ALBUTEROL 3 ML NEB INHALATION SCH ×2 (07:32→10:45)
[2019-03-08] MEDS: INSULIN ASPART (NovoLOG) 100 UNIT/ML VIAL SQ SCH (08:20)
[2019-03-08] MEDS: INSULIN DETEMIR (LEVEMIR) 100 UNIT/ML SYR SQ SCH (10:30)
[2019-03-08] MEDS: metFORMIN 500 MG TAB PO SCH (10:31)
[2019-03-08] MEDS: POTASSIUM CHLORIDE ER 10 MEQ TAB.ER.PRT PO SCH (10:32)
[2019-03-08] MEDS: LISINOPRIL-HCTZ 10-12.5 MG 1 EACH TAB PO SCH (10:32)
[2019-03-08] MEDS: LACOSAMIDE 50 MG TABLET PO SCH (10:32)
[2019-03-08] MEDS: GABAPENTIN 300 MG CAP PO SCH (10:32)
[2019-03-08] MEDS: DIVALPROEX ER 500 MG TAB.ER.24H PO SCH (10:33)
[2019-03-08] MEDS: FUROSEMIDE 40 MG TAB PO SCH (10:33)
[2019-03-08] MEDS: TOPIRAMATE 100 MG TAB PO SCH (10:33)
[2019-03-08] MEDS: hydrALAZINE HCL 25 MG TAB PO SCH (10:33)
[2019-03-08] MEDS: PANTOPRAZOLE 40 MG TABLET PO SCH (10:33)
[2019-03-08] MEDS: OXcarbazepine 300 MG TAB PO SCH (10:34)
[2019-03-08] MEDS: ASPIRIN 81 MG PO SCH (10:43)
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
--- NOTE | 2019-03-08 15:43 | P.DS ---
Providers Date of admission: 03/08/19 08:20 Expected date of discharge: 03/08/19 Attending physician: Adriel Lima Consults: 03/06/19 11:26 Consult Physician Urgent Consulting Provider: Jeremy Richards Consult Reason/Comments: chest pain Do you want consulting provider notified?: Yes 03/07/19 13:55 Consult Physician Routine Consulting Provider: Nathan Still Consult Reason/Comments: abn hyda scan Do you want consulting provider notified?: Yes Primary care physician: [facility] Course: Final Diagnoses: -Acute mid epigastric chest pain, radiating into bilateral right and left upper abdominal quadrants. Atypical for angina. Acute coronary event ruled out as per cardiology. -Borderline hydropic size gallbladder, no stones per ultrasound. HIDA scan reporting biliary dyskinesia with EF of 1%. -Hyperlipidemia, triglycerides 2199 -Diabetes mellitus, uncontrolled, hyperglycemic, hemoglobin A1c 12.5 -Hypertension -Obstructive sleep apnea, has CPAP machine at home, reports CPAP mask chewed up by puppy. -Ongoing nicotine dependence -Hepatic steatosis per ultrasound -Nonobstructing 0.7 cm right renal calculus -Morbid obesity, BMI 40 Hospital course:This is a 48-year-old obese female with history of chronic intermittent asthma, diabetes mellitus, gastroesophageal reflux disease, hyperlipidemia, hypertension, obstructive sleep apnea, neuropathy, cervical cancer, seizures, anxiety, depression, claustrophobia, presented to the ER with complaints of midepigastric and stabbing chest pain, right and left upper abdominal quadrant pain accompanied by shortness of breath, mild nausea, no vomiting, no diarrhea, no constipation, no back pain. Gallbladder ultrasound reporting borderline hypertrophic, no gallstones. ,, Nonobstructing right renal calculus, 0.7 cm. Fatty liver .T bili, LFTs within normal limits with the exception of alk phos, 148 .Chest x-ray poor study, expiratory. EKG nonspecific, reporting sinus rhythm with prolonged QT. Troponins negative 2. Triglycerides significantly elevated, 2199, cholesterol 262, HDL 24. Hyperglycemia, blood sugars in the 300s on admission currently down into the 200s. Afebrile, normal WBC, currently 11.7. Vital signs stable, bradycardic on admission-subsided. Telemetry currently sinus rhythm. Denies chest pain, palpitations or shortness of breath. Denies nausea vomiting, or diarrhea. [place] of mid epigastric tenderness, worsened with palpation. Evaluated by cardiology, repeat EKG ordered. Hemoglobin A1c 12.5. Discussed with surgery, cholecystectomy will be placed on hold for a few weeks, an attempt to better control patient's blood sugars, lessen the risk of complications and infections. Patient currently denies abdominal pain, no nausea vomiting or diarrhea.. Denies chest pain, palpitations or shortness of breath. Denies lightheadedness, dizziness or focal deficits. Patient is eager for discharge home. Cleared by surgery and cardiology for discharge. Patient is being discharged home in stable condition with guarded prognosis. Victoza to be arranged thru PCP office at F/U visit Lavaza or Vascepa to be arranged thru PCP office at F/U visit EXAM: GENERAL: Alert and oriented 3, no acute distress. CARDIOVASCULAR: S1, S2 regular.. No murmur RESPIRATION: Breath sounds diminished in the bases. No rhonchi or crackles. No bronchial breathing. ABDOMEN: Soft, obese. Mildly distended, nontender, No guarding. no masses palpable. Bowel sounds heard. LEGS: No edema. no swelling NERVOUS SYSTEM: No focal deficits. The impression and plan of care has been dictated as directed. : I performed a history and examination of this patient, discussed the same with the dictator. I agree with the dictator's note ,documented as a scribe. Any additional findings or plans will be noted. Patient Condition at Discharge: Stable Plan - Discharge Summary Discharge Rx Participant: No New Discharge Prescriptions: [place]-3 Acid Ethyl Esters [Lovaza] 4 gm PO DAILY #30 cap Continue Gabapentin [Neurontin] 300 mg PO BID Lacosamide [Vimpat] 100 mg PO BID Fenofibrate 160 mg PO HS DULoxetine HCL [Cymbalta] 90 mg PO HS Divalproex ER [Depakote ER] 500 mg PO BID Furosemide [Lasix] 40 mg PO DAILY hydrALAZINE HCL [Apresoline] 25 mg PO BID Hydrocodone/Acetaminophen [[place] 10-325] 1 tab PO Q8H PRN PRN Reason: Pain Insulin Glargine [Lantus] 70 unit SQ BID metFORMIN HCL 1,000 mg PO BID Omeprazole [PriLOSEC] 40 mg PO DAILY Potassium Chloride [Klor-Con 10] 10 meq PO DAILY SUMAtriptan SUCCINATE [Imitrex] 100 mg PO BID PRN MDD 200 MG PRN Reason: Migraine Headache Atorvastatin [Lipitor] 80 mg PO HS #30 tab Albuterol Inhaler [Ventolin Hfa Inhaler] 1 - 2 puff INHALATION RT-Q6H PRN PRN Reason: Shortness Of Breath Beclomethasone Dip 80 Mcg/Puff [Qvar 80 mcg] 2 puff INHALATION RT-BID Insulin Lispro [Admelog Solostar] 20 unit SQ W/SUPPER Lisinopril-Hctz 10-12.5 mg [Zestoretic 10-12.5] 1 tab PO DAILY Topiramate 200 mg PO BID OXcarbazepine 600 mg PO BID Discharge Medication List Gabapentin [Neurontin] 300 mg PO BID 10/18/13 [History] Lacosamide [Vimpat] 100 mg PO BID 01/16/14 [History] DULoxetine HCL [Cymbalta] 90 mg PO HS 04/03/16 [History] Divalproex ER [Depakote ER] 500 mg PO BID 04/03/16 [History] Fenofibrate 160 mg PO HS 04/03/16 [History] Furosemide [Lasix] 40 mg PO DAILY 04/04/18 [History] Hydrocodone/Acetaminophen [[place] 10-325] 1 tab PO Q8H PRN 04/04/18 [History] Insulin Glargine [Lantus] 70 unit SQ BID 04/04/18 [History] Omeprazole [PriLOSEC] 40 mg PO DAILY 04/04/18 [History] Potassium Chloride [Klor-Con 10] 10 meq PO DAILY 04/04/18 [History] SUMAtriptan SUCCINATE [Imitrex] 100 mg PO BID PRN MDD 200 MG 04/04/18 [History] hydrALAZINE HCL [Apresoline] 25 mg PO BID 04/04/18 [History] metFORMIN HCL 1,000 mg PO BID 04/04/18 [History] Atorvastatin [Lipitor] 80 mg PO HS #30 tab 04/09/18 [Rx] Albuterol Inhaler [Ventolin Hfa Inhaler] 1 - 2 puff INHALATION RT-Q6H PRN 03/06/19 [History] Beclomethasone Dip 80 Mcg/Puff [Qvar 80 mcg] 2 puff INHALATION RT-BID 03/06/19 [History] Insulin Lispro [Admelog Solostar] 20 unit SQ W/SUPPER 03/06/19 [History] Lisinopril-Hctz 10-12.5 mg [Zestoretic 10-12.5] 1 tab PO DAILY 03/06/19 [History] OXcarbazepine 600 mg PO BID 03/06/19 [History] Topiramate 200 mg PO BID 03/06/19 [History] [place]-3 Acid Ethyl Esters [Lovaza] 4 gm PO DAILY #30 cap 03/07/19 [Rx] Follow up Appointment(s)/Referral(s): Demarco Cole MD [STAFF PHYSICIAN] - 03/16/19 3:00 pm (With Gabriela Beckman [employer]) Adriel Lima Jr, DO [Primary Care Provider] - 03/10/19 11:30 am (With Margot Tafoya NP) Nathan Still MD [STAFF PHYSICIAN] - 03/16/19 2:45 pm Patient Instructions/Handouts: Laparoscopic Cholecystectomy (DC) Activity/Diet/Wound Care/Special Instructions: HGBA1C 12.5, Victoza to be arranged thru PCP office at F/U visit Lavaza or Vascepa to be arranged thru PCP office at F/U visit Discharge Disposition: HOME SELF-CARE
== END 2019-03-08 11:51 | disposition home or self-care (01) | DRG 313 ==
LOC: EC 09:10 → 1SOBS 11:26 → OBSVTOIN 03-08 08:20
PROVIDERS: ADMIT Family Medicine; ATTEND Family Medicine
DX: R07.89 Other chest pain (principal); Z68.41 Body mass index [BMI] 40.0-44.9, adult; E11.42 Type 2 diabetes mellitus with diabetic polyneuropathy; E11.65 Type 2 diabetes mellitus with hyperglycemia; E66.01 Morbid (severe) obesity due to excess calories; K76.0 Fatty (change of) liver, not elsewhere classified; E78.1 Pure hyperglyceridemia; E78.5 Hyperlipidemia, unspecified; F17.200 Nicotine dependence, unspecified, uncomplicated; F32.9 Major depressive disorder, single episode, unspecified; F40.240 Claustrophobia; G40.909 Epilepsy, unspecified, not intractable, without status epilepticus; G47.33 Obstructive sleep apnea (adult) (pediatric); I10 Essential (primary) hypertension; J45.20 Mild intermittent asthma, uncomplicated; K82.8 Other specified diseases of gallbladder; N20.0 Calculus of kidney; G43.909 Migraine, unspecified, not intractable, without status migrainosus; K21.9 Gastro-esophageal reflux disease without esophagitis; M54.9 Dorsalgia, unspecified; F41.9 Anxiety disorder, unspecified; Z79.4 Long term (current) use of insulin; Z79.899 Other long term (current) drug therapy; Z85.41 Personal history of malignant neoplasm of cervix uteri; Z85.42 Personal history of malignant neoplasm of other parts of uterus; Z87.442 Personal history of urinary calculi; Z87.01 Personal history of pneumonia (recurrent); Z90.49 Acquired absence of other specified parts of digestive tract; Z98.51 Tubal ligation status; Z88.1 Allergy status to other antibiotic agents; Z88.2 Allergy status to sulfonamides; Z88.8 Allergy status to other drugs, medicaments and biological substances; Z82.49 Family history of ischemic heart disease and other diseases of the circulatory system; Z82.5 Family history of asthma and other chronic lower respiratory diseases; Z82.3 Family history of stroke; Z80.8 Family history of malignant neoplasm of other organs or systems; Z81.8 Family history of other mental and behavioral disorders
CPT/HCPCS: 36415; 71046; 76705; 78227; 80048; 80053; 80061; 81001; 83036; 83690; 83735; 84484; 85025; 85610; 85730; 93005; 94640; 94660; 96365; 96366; 96375; 96376; 99285

== ENCOUNTER 2019-07-08 17:39 | Emergency (ER) | payer OTHER ==
[2019-07-08] MEDS ORDERED: methylPREDNISolone SOD SUCCI 125 MG/2 ML VIAL IV STA (18:07)
[2019-07-08] MEDS ORDERED: IPRATROPIUM-ALBUTEROL 3 ML NEB INHALATION STA (18:07)
[2019-07-08 18:15] VITALS: RESP 20
[2019-07-08 18:32] LABS: Basophils # (A) 0.1 k/uL (0-0.2); Basophils % (A) 1 %; Eosinophils # (A) 0.2 k/uL (0-0.7); Eosinophils % (A) 2 %; HCT 42.2 % (34.0-46.0); HGB 14.1 gm/dL (11.4-16.0); Lymphocytes # (A) 3.2 k/uL (1.0-4.8); Lymphocytes % (A) 31 %; MCH 27.3 pg (25.0-35.0); MCHC 33.3 g/dL (31.0-37.0); MCV 82.1 fL (80.0-100.0); Mean Platelet Volume 9.6; Monocytes # (A) 0.4 k/uL (0-1.0); Monocytes % (A) 4 %; Neutrophils # (A) 6.5 k/uL (1.3-7.7); Neutrophils % (A) 61 %; Platelet Count 262 k/uL (150-450); RBC 5.14 m/uL (3.80-5.40); RDW 15.1 % (11.5-15.5); WBC 10.6 k/uL (3.8-10.6)
--- NOTE | 2019-07-08 18:34 | XR ---
EXAMINATION TYPE: XR chest 2V DATE OF EXAM: 07/08/2019 COMPARISON: 03/06/2019 HISTORY: Cough and shortness of breath TECHNIQUE: Frontal and lateral views of the chest are obtained. FINDINGS: There is no focal air space opacity, pleural effusion, or pneumothorax seen. The cardiac silhouette size is within normal limits. The osseous structures are intact. Mild multilevel degener ative change of the spine. IMPRESSION: No acute cardiopulmonary process.
[2019-07-08 18:48] LABS: ALT 16 U/L (4-34); AST 19 U/L (14-36); African American GFR (CKD) >90 (>60 ml/min/1.73 sqM); Albumin 4.2 g/dL (3.5-5.0); Alkaline Phosphatase 113 U/L (38-126); Anion Gap 9 mmol/L; Blood Urea Nitrogen 15 mg/dL (7-17); Calcium 9.6 mg/dL (8.4-10.2); Carbon Dioxide 20 mmol/L (22-30); Chloride 104 mmol/L (98-107); Glucose 391 mg/dL (74-99); Non-African American GFR(CKD) >90 (>60 ml/min/1.73 sqM); Potassium 4.3 mmol/L (3.5-5.1); Sodium 133 mmol/L (137-145); Total Bilirubin 0.3 mg/dL (0.2-1.3); Total Protein 7.2 g/dL (6.3-8.2)
[2019-07-08] MEDS ORDERED: SODIUM CHLORIDE 0.9% 1,000 ML IV ONE (19:07)
[2019-07-08 19:23] VITALS: BP 124/95; PULSE 100; TEMP 98.5
--- NOTE | 2019-07-08 19:41 | ED ---
URI HPI - General Chief Complaint: Upper Respiratory Infection Stated Complaint: Chest pain and SOB Time Seen by Provider: 07/08/19 17:50 Source: patient Mode of arrival: ambulatory Limitations: no limitations - History of Present Illness Initial Comments: The patient is a 49-year-old female past medical history of diabetes, hypertension and asthma who presents to the emergency room with reported cough which started 2 days ago. She also reports to chest congestion. States that she's been coughing so hard that her chest hurts. She denies any recent travel or sick contacts. Reports to yellow productive sputum. Denies hemoptysis. She has been using her inhalers as directed however states that it is getting to the point where she is getting thrush. She has not taken any additional medications [id number] for her symptoms. Denies back or flank pain. Admits to chills and fevers. Denies nausea or vomiting. She reports that she had similar symptoms 2 years ago and was diagnosed with influenza. She required BiPAP treatment in the intensive care unit. States she's never been intubated for her breathing. She has not taken her home medications today. Denies abdominal pain. No changes in her bowel or bladder habits. There are no other alleviating, precipitating or modifying factors - Related Data Home Medications Medication Instructions Recorded Confirmed Gabapentin [Neurontin] 300 mg PO BID 10/18/13 03/06/19 Lacosamide [Vimpat] 100 mg PO BID 01/16/14 03/06/19 DULoxetine HCL [Cymbalta] 90 mg PO HS 04/03/16 03/06/19 Divalproex ER [Depakote ER] 500 mg PO BID 04/03/16 03/06/19 Fenofibrate 160 mg PO HS 04/03/16 03/06/19 Furosemide [Lasix] 40 mg PO DAILY 04/04/18 03/06/19 Hydrocodone/Acetaminophen [[place] 1 tab PO Q8H PRN 04/04/18 03/06/19 10-325] Insulin Glargine [Lantus] 70 unit SQ BID 04/04/18 03/06/19 Omeprazole [PriLOSEC] 40 mg PO DAILY 04/04/18 03/06/19 Potassium Chloride [Klor-Con 10] 10 meq PO DAILY 04/04/18 03/06/19 SUMAtriptan SUCCINATE [Imitrex] 100 mg PO BID PRN MDD 200 MG 04/04/18 03/06/19 hydrALAZINE HCL [Apresoline] 25 mg PO BID 04/04/18 03/06/19 metFORMIN HCL 1,000 mg PO BID 04/04/18 03/06/19 Albuterol Inhaler [Ventolin Hfa 1 - 2 puff INHALATION RT-Q6H PRN 03/06/19 03/06/19 Inhaler] Beclomethasone Dip 80 Mcg/Puff 2 puff INHALATION RT-BID 03/06/19 03/06/19 [Qvar 80 mcg] Insulin Lispro [Admelog Solostar] 20 unit SQ W/SUPPER 03/06/19 03/06/19 Lisinopril-Hctz 10-12.5 mg 1 tab PO DAILY 03/06/19 03/06/19 [Zestoretic 10-12.5] OXcarbazepine 600 mg PO BID 03/06/19 03/06/19 Topiramate 200 mg PO BID 03/06/19 03/06/19 Previous Rx's Medication Instructions Recorded Atorvastatin [Lipitor] 80 mg PO HS #30 tab 04/09/18 Hollis-3 Acid Ethyl Esters [Lovaza] 4 gm PO DAILY #30 cap 03/07/19 Azithromycin [Zithromax Z-pack] 0 mg PO DIRECTED #1 pack 07/08/19 Nystatin 100,000 Unit/ml Susp 4 ml PO QID #120 ml 07/08/19 [Mycostatin Oral Susp] predniSONE 60 mg PO BID #10 tab 07/08/19 Allergies Allergy/AdvReac Type Severity Reaction Status Date / Time sulfamethoxazole Allergy Unknown Verified 07/08/19 17:49 [From Bactrim] trimethoprim [From Bactrim] Allergy Unknown Verified 07/08/19 17:49 metoclopramide HCl AdvReac Confusion Verified 07/08/19 17:49 [From Reglan] Review of Systems ROS Statement: Those systems with pertinent positive or pertinent negative responses have been documented in the HPI. ROS Other: All systems not noted in ROS Statement are negative. Past Medical History Past Medical History: Asthma, Cancer, Diabetes Mellitus, GERD/Reflux, Hyperlipidemia, Hypertension, Pneumonia, Renal Disease, Seizure Disorder, Sleep Apnea/CPAP/BIPAP Additional Past Medical History / Comment(s): IDDM type II, neuropathy bilateral legs, cervical cancer with surgery, bilateral pneumonia with influenza A, seizures since age 10 yrs after a fall out of back of pickup-no seizure in past few years, MILY but CPap mask is broken, cervical and back pain, DDD, migraines, kidney stones-passed on her own. History of Any Multi-Drug Resistant Organisms: None Reported Past Surgical History: Appendectomy, Tubal Ligation Additional Past Surgical History / Comment(s): back/neck injections, cone procedure for uterine cancer, cyst removed from tailbone, R ovarian cyst removed. Past Anesthesia/Blood Transfusion Reactions: No Reported Reaction, Motion Sickness Additional Past Anesthesia/Blood Transfusion Reaction / Comment(s): clausterphobia Past Psychological History: Anxiety, Depression Smoking Status: Current every day smoker Past Alcohol Use History: Rare Past Drug Use History: None Reported - Past Family History Mother Family Medical History: CVA/TIA, Hypertension Additional Family Medical History / Comment(s): depression/anxiety Father Family Medical History: COPD Additional Family Medical History / Comment(s): mesothelioma General Exam Limitations: no limitations General appearance: alert, in no apparent distress Head exam: Present: atraumatic, normocephalic, normal inspection Eye exam: Present: normal appearance, PERRL, EOMI. Absent: scleral icterus, conjunctival injection, periorbital swelling ENT exam: Present: normal exam, mucous membranes moist Neck exam: Present: normal inspection. Absent: tenderness, meningismus, lymphadenopathy Respiratory exam: Present: normal lung sounds bilaterally, other (bronchospastic cough). Absent: respiratory distress, wheezes, rales, rhonchi, stridor Cardiovascular Exam: Present: regular rate, normal rhythm, normal heart sounds. Absent: systolic murmur, diastolic murmur, rubs, gallop, clicks GI/Abdominal exam: Present: soft, normal bowel sounds. Absent: distended, tenderness, guarding, rebound, rigid Extremities exam: Present: normal inspection, full ROM, normal capillary refill. Absent: tenderness, pedal edema, joint swelling, calf tenderness Back exam: Present: normal inspection Neurological exam: Present: alert, oriented X3, CN II-XII intact Psychiatric exam: Present: normal affect, normal mood Skin exam: Present: warm, dry, intact, normal color. Absent: rash Course Vital Signs 07/08/19 07/08/19 07/08/19 17:47 18:12 18:20 Temperature 98.1 F Pulse Rate 118 H 109 H 113 H Respiratory 18 20 20 Rate Blood Pressure 175/106 O2 Sat by Pulse 97 Oximetry 07/08/19 19:22 Temperature 98.5 F Pulse Rate 100 Respiratory 20 Rate Blood Pressure 124/95 O2 Sat by Pulse 97 Oximetry Medical Decision Making - Medical Decision Making Upon arrival the patient was placed into room 7. A thorough history and physical exam was performed. Patient does not demonstrate any signs of respiratory distress. No wheezing. Patient has a minimal cough. 12-lead EKG was performed which demonstrates a sinus rhythm. I did recommend laboratory studies, influenza swab and a chest x-ray because of the extent of her previous respiratory illness. Glucose is elevated at 391. Patient states she has not taken her insulin yet today. She also has a pseudohyponatremia of 133. Blood cell count is normal at 10.6. No anion gap. Influenza A and B are not detected chest x-ray demonstrates no acute cardiopulmonary process. I reviewed the images myself. I did give the patient 125 mg of Solu-Medrol. I did request to provide her with insulin however she refuses stating that she would rather use her sliding scale at home. I did attempt to provide the patient with a liter bolus of normal saline over the patient refused stating that she wanted to leave. She was given a DuoNeb breathing treatment. I discussed diagnosis, differential and treatment options. I did recommend that the patient routine herself because of her severe respiratory illness in the past and does a for compromised. She does continue to smoke. Smoking cessation was discussed. The patient will be discharged home with a prescription for prednisone 20 mg twice a day 5 days, nystatin swish and swallow and Zithromax. The patient is instructed that the steroids will increase her sugars and she much watch them closely and compensate from with additional insulin. The patient understood this. If she has any new or worsening symptoms she should return to the emergency room. Patient was then discharged home in stable condition - Lab Data Result diagrams: 07/08/19 18:22 07/08/19 18:22 Lab Results 07/08/19 07/08/19 07/08/19 Range/Units 18:07 18:22 18:22 WBC 10.6 (3.8-10.6) k/uL RBC 5.14 (3.80-5.40) m/uL Hgb 14.1 (11.4-16.0) gm/dL Hct 42.2 (34.0-46.0) % MCV 82.1 (80.0-100.0) fL MCH 27.3 (25.0-35.0) pg MCHC 33.3 (31.0-37.0) g/dL RDW 15.1 (11.5-15.5) % Plt Count 262 (150-450) k/uL Neutrophils % 61 % Lymphocytes % 31 % Monocytes % 4 % Eosinophils % 2 % Basophils % 1 % Neutrophils # 6.5 (1.3-7.7) k/uL Lymphocytes # 3.2 (1.0-4.8) k/uL Monocytes # 0.4 (0-1.0) k/uL Eosinophils # 0.2 (0-0.7) k/uL Basophils # 0.1 (0-0.2) k/uL Sodium 133 L (137-145) mmol/L Potassium 4.3 (3.5-5.1) mmol/L Chloride 104 (98-107) mmol/L Carbon Dioxide 20 L (22-30) mmol/L Anion Gap 9 mmol/L BUN 15 (7-17) mg/dL Creatinine 0.56 (0.52-1.04) mg/dL Est GFR (CKD-EPI)AfAm >90 (>60 ml/min/1.73 sqM) Est GFR (CKD-EPI)NonAf >90 (>60 ml/min/1.73 sqM) Glucose 391 H (74-99) mg/dL Plasma Lactic Acid Lobo (0.7-2.0) mmol/L Calcium 9.6 (8.4-10.2) mg/dL Total Bilirubin 0.3 (0.2-1.3) mg/dL AST 19 (14-36) U/L ALT 16 (4-34) U/L Alkaline Phosphatase 113 (38-126) U/L Total Protein 7.2 (6.3-8.2) g/dL Albumin 4.2 (3.5-5.0) g/dL Influenza Type A RNA Not Detected (Not Detectd) Influenza Type B (PCR) Not Detected (Not Detectd) 07/08/19 Range/Units 18:22 WBC (3.8-10.6) k/uL RBC (3.80-5.40) m/uL Hgb (11.4-16.0) gm/dL Hct (34.0-46.0) % MCV (80.0-100.0) fL MCH (25.0-35.0) pg MCHC (31.0-37.0) g/dL RDW (11.5-15.5) % Plt Count (150-450) k/uL Neutrophils % % Lymphocytes % % Monocytes % % Eosinophils % % Basophils % % Neutrophils # (1.3-7.7) k/uL Lymphocytes # (1.0-4.8) k/uL Monocytes # (0-1.0) k/uL Eosinophils # (0-0.7) k/uL Basophils # (0-0.2) k/uL Sodium (137-145) mmol/L Potassium (3.5-5.1) mmol/L Chloride (98-107) mmol/L Carbon Dioxide (22-30) mmol/L Anion Gap mmol/L BUN (7-17) mg/dL Creatinine (0.52-1.04) mg/dL Est GFR (CKD-EPI)AfAm (>60 ml/min/1.73 sqM) Est GFR (CKD-EPI)NonAf (>60 ml/min/1.73 sqM) Glucose (74-99) mg/dL Plasma Lactic Acid Lobo 1.9 (0.7-2.0) mmol/L Calcium (8.4-10.2) mg/dL Total Bilirubin (0.2-1.3) mg/dL AST (14-36) U/L ALT (4-34) U/L Alkaline Phosphatase (38-126) U/L Total Protein (6.3-8.2) g/dL Albumin (3.5-5.0) g/dL Influenza Type A RNA (Not Detectd) Influenza Type B (PCR) (Not Detectd) - EKG Data EKG Comments: EKG demonstrates a sinus tachycardia with a ventricular rate of 102. SD interval 150. QRS 12. QTC of 42. No acute ST segment elevations or depressions concerning for ischemic changes. Disposition Clinical Impression: Cough, Tobacco abuse, Hyperglycemia, Oral thrush Disposition: HOME SELF-CARE Condition: Stable Instructions (If sedation given, give patient instructions): Upper Respiratory Infection (ED) Additional Instructions: Please follow-up with your primary care doctor in 2-4 days. Return to the emergency room for any new or worsening symptoms. You must check her sugars very closely and adjust for any higher sugars due to the steroids Prescriptions: Nystatin 100,000 Unit/ml Susp [Mycostatin Oral Susp] 4 ml PO QID #120 ml predniSONE 60 mg PO BID #10 tab Azithromycin [Zithromax Z-pack] 0 mg PO DIRECTED #1 pack Is patient prescribed a controlled substance at d/c from ED?: No Referrals: Adriel Lima Jr, [Primary Care Provider] - 1-2 days Time of Disposition: 19:41
== END 2019-07-08 19:57 | disposition home or self-care (01) ==
LOC: EC 17:39
DX: E11.65 Type 2 diabetes mellitus with hyperglycemia (principal); B37.0 Candidal stomatitis; R05 Cough; Z71.6 Tobacco abuse counseling; K21.9 Gastro-esophageal reflux disease without esophagitis; E78.5 Hyperlipidemia, unspecified; I10 Essential (primary) hypertension; E11.40 Type 2 diabetes mellitus with diabetic neuropathy, unspecified; G47.33 Obstructive sleep apnea (adult) (pediatric); G40.909 Epilepsy, unspecified, not intractable, without status epilepticus; F41.9 Anxiety disorder, unspecified; F32.9 Major depressive disorder, single episode, unspecified; F17.200 Nicotine dependence, unspecified, uncomplicated; Z79.4 Long term (current) use of insulin; Z79.899 Other long term (current) drug therapy; Z88.1 Allergy status to other antibiotic agents; Z88.2 Allergy status to sulfonamides; Z88.8 Allergy status to other drugs, medicaments and biological substances
CPT/HCPCS: 36415; 94640; 93005; 80053; 83605; 85025; 87502; 71046; 99285; 96374; 96361; J2930

== ENCOUNTER 2020-03-04 17:32 | Emergency (ER) | payer OTHER ==
[2020-03-04] MEDS ORDERED: ONDANSETRON 4 MG/2 ML VIAL IVP STA (18:53)
[2020-03-04] MEDS ORDERED: SODIUM CHLORIDE 0.9% 1,000 ML IV STA (18:53)
[2020-03-04] MEDS ORDERED: MORPHINE SULFATE 2 MG/ML SYRINGE IVP STA (18:53)
--- NOTE | 2020-03-04 19:01 | ED ---
General Adult HPI - General Chief complaint: Abdominal Pain Stated complaint: gallbladder pain Time Seen by Provider: 03/04/20 18:37 Source: patient Mode of arrival: ambulatory Limitations: no limitations - History of Present Illness Initial comments: 49-year-old female with history of known gallbladder disease presents to the emergency department with left-sided abdominal pain and nausea; reports a few episodes of vomiting as well. Patient states, "I know it's my gallbladder." She also reports a recent significant weight loss she attributes to healthy eating and lifestyle changes. Patient denies any recent rash, fever, chills, cough, shortness of breath, chest pain, diarrhea, constipation, back pain, numbness, tingling, dizziness, weakness, hematuria, dysuria, urinary urgency, urinary frequency, headache, visual changes, or any other complaints. She has had appendectomy and tubal ligation in the past. - Related Data Home Medications Medication Instructions Recorded Confirmed Gabapentin [Neurontin] 300 mg PO DAILY 10/18/13 03/04/20 Lacosamide [Vimpat] 100 mg PO BID 01/16/14 03/04/20 DULoxetine HCL [Cymbalta] 30 mg PO DAILY 04/03/16 03/04/20 Divalproex ER [Depakote ER] 500 mg PO BID 04/03/16 03/04/20 Fenofibrate 160 mg PO DAILY 04/03/16 03/04/20 Hydrocodone/Acetaminophen [[place] 1 tab PO Q8H PRN 04/04/18 03/04/20 10-325] Omeprazole [PriLOSEC] 40 mg PO DAILY 04/04/18 03/04/20 hydrALAZINE HCL [Apresoline] 25 mg PO BID 04/04/18 03/04/20 metFORMIN HCL 1,000 mg PO BID 04/04/18 03/04/20 Beclomethasone Dip 80 Mcg/Puff 2 puff INHALATION RT-BID 03/06/19 03/04/20 [Qvar 80 mcg] Insulin Lispro [Admelog Solostar] See Protocol SQ AC-TID PRN 03/06/19 03/04/20 Lisinopril-Hctz 10-12.5 mg 1 tab PO HS 03/06/19 03/04/20 [Zestoretic 10-12.5] Topiramate 200 mg PO BID 03/06/19 03/04/20 Albuterol Nebulized [Ventolin 2.5 mg INHALATION RT-Q4H PRN 03/04/20 03/04/20 Nebulized] Albuterol Sulfate [Ventolin HFA] 1 - 2 puff INHALATION RT-Q6H PRN 03/04/20 03/04/20 DULoxetine HCL [Cymbalta] 60 mg PO HS 03/04/20 03/04/20 Gabapentin [Neurontin] 600 mg PO HS 03/04/20 03/04/20 Gemfibrozil [Lopid] 1,200 mg PO HS 03/04/20 03/04/20 Insulin Glargine,Hum.rec.anlog 50 unit SQ BID 03/04/20 03/04/20 [Basaglar Katrinapen U-100] LORazepam [Ativan] 1 mg PO TID PRN 03/04/20 03/04/20 OXcarbazepine [Trileptal] 600 mg PO BID 03/04/20 03/04/20 Previous Rx's Medication Instructions Recorded Atorvastatin [Lipitor] 80 mg PO HS #30 tab 04/09/18 Ondansetron [Zofran ODT] 4 mg PO Q8HR PRN #10 tab 03/04/20 Allergies Allergy/AdvReac Type Severity Reaction Status Date / Time sulfamethoxazole Allergy Unknown Verified 03/04/20 19:45 [From Bactrim] trimethoprim [From Bactrim] Allergy Unknown Verified 03/04/20 19:45 metoclopramide HCl AdvReac Confusion Verified 03/04/20 19:45 [From Reglan] Review of Systems ROS Statement: Those systems with pertinent positive or pertinent negative responses have been documented in the HPI. ROS Other: All systems not noted in ROS Statement are negative. Past Medical History Past Medical History: Asthma, Cancer, Diabetes Mellitus, GERD/Reflux, Hyperlipidemia, Hypertension, Pneumonia, Renal Disease, Seizure Disorder, Sleep Apnea/CPAP/BIPAP Additional Past Medical History / Comment(s): IDDM type II, neuropathy bilateral legs, cervical cancer with surgery, bilateral pneumonia with influenza A, seizures since age 10 yrs after a fall out of back of pickup-no seizure in past few years, MILY but CPap mask is broken, cervical and back pain, DDD, migraines, kidney stones-passed on her own. History of Any Multi-Drug Resistant Organisms: None Reported Past Surgical History: Appendectomy, Tubal Ligation Additional Past Surgical History / Comment(s): back/neck injections, cone procedure for uterine cancer, cyst removed from tailbone, R ovarian cyst removed. Past Anesthesia/Blood Transfusion Reactions: No Reported Reaction, Motion Sickness Additional Past Anesthesia/Blood Transfusion Reaction / Comment(s): clausterphobia Past Psychological History: Anxiety, Depression Smoking Status: Current every day smoker Past Alcohol Use History: Rare Past Drug Use History: Marijuana - Past Family History Mother Family Medical History: CVA/TIA, Hypertension Additional Family Medical History / Comment(s): depression/anxiety Father Family Medical History: COPD Additional Family Medical History / Comment(s): mesothelioma General Exam Limitations: no limitations (Well-developed, well-nourished female in no acute distress. Initial temperature 98.1F, pulse 109, respirations 18, blood pressure 140/70, pulse ox 98% on room air.) General appearance: alert, in no apparent distress Respiratory exam: Present: normal lung sounds bilaterally. Absent: respiratory distress, wheezes, rales, rhonchi, stridor Cardiovascular Exam: Present: regular rate, normal rhythm, normal heart sounds. Absent: systolic murmur, diastolic murmur, rubs, gallop, clicks GI/Abdominal exam: Present: soft, tenderness (Mild tenderness in the left upper quadrant), guarding (Diffuse abdomen), normal bowel sounds. Absent: distended, rebound, rigid Neurological exam: Present: alert, oriented X3, CN II-XII intact Psychiatric exam: Present: normal affect, normal mood Skin exam: Present: warm, dry, intact, normal color. Absent: rash Course Vital Signs 03/04/20 03/04/20 03/04/20 17:32 20:45 22:15 Temperature 98.1 F 98.6 F 98.4 F Pulse Rate 109 H 68 72 Respiratory 18 16 16 Rate Blood Pressure 148/78 111/72 115/68 O2 Sat by Pulse 98 96 98 Oximetry EKG Findings - EKG Comments: EKG Findings:: EKG obtained in 1920 shows normal sinus rhythm with a ventricular rate of 93, MI interval 150, QRS duration 100, QT 378, QTC 469. No evidence of ST elevation or depression. Medical Decision Making - Medical Decision Making 49-year-old female presents to the emergency Department with complaints of left upper quadrant abdominal pain accompanied by nausea and vomiting throughout the day today. Patient states she has a remote history of gallbladder disease but has not followed up with a surgeon for this issue recently; expresses certainty that this is the cause of her pain today. Discussed that this would be an unusual location for her pain to present if it were exclusively due to the gallbladder. Patient does report recent dietary changes in effort to lose weight and improve her overall health. Patient endorsed diffuse, generalized abdominal tenderness though no discomfort was elicited upon palpation. Patient has not had any episodes of vomiting while present in the department and pain has been controlled with 2 doses of morphine. No significant findings in lab work with the exception of a glucose of 244. Ultrasound of the gallbladder was obtained and showed no gallstones. Patient was discharged home with prescription for Zofran to use for nausea. Did to follow-up with her primary care provider for recheck. Return parameters were discussed in detail. Patient verbalizes understanding and agrees with this plan. - Lab Data Result diagrams: 03/04/20 19:33 03/04/20 19:33 Lab Results 03/04/20 03/04/20 03/04/20 Range/Units 19:33 19:33 19:33 WBC 10.7 H (3.8-10.6) k/uL RBC 4.93 (3.80-5.40) m/uL Hgb 13.9 (11.4-16.0) gm/dL Hct 42.1 (34.0-46.0) % MCV 85.3 (80.0-100.0) fL MCH 28.1 (25.0-35.0) pg MCHC 33.0 (31.0-37.0) g/dL RDW 14.8 (11.5-15.5) % Plt Count 282 (150-450) k/uL Neutrophils % 59 % Lymphocytes % 32 % Monocytes % 5 % Eosinophils % 2 % Basophils % 1 % Neutrophils # 6.3 (1.3-7.7) k/uL Lymphocytes # 3.5 (1.0-4.8) k/uL Monocytes # 0.5 (0-1.0) k/uL Eosinophils # 0.2 (0-0.7) k/uL Basophils # 0.1 (0-0.2) k/uL Sodium 138 (137-145) mmol/L Potassium 4.2 (3.5-5.1) mmol/L Chloride 109 H (98-107) mmol/L Carbon Dioxide 21 L (22-30) mmol/L Anion Gap 8 mmol/L BUN 17 (7-17) mg/dL Creatinine 0.64 (0.52-1.04) mg/dL Est GFR (CKD-EPI)AfAm >90 (>60 ml/min/1.73 sqM) Est GFR (CKD-EPI)NonAf >90 (>60 ml/min/1.73 sqM) Glucose 244 H (74-99) mg/dL Calcium 9.8 (8.4-10.2) mg/dL Magnesium 1.6 (1.6-2.3) mg/dL Total Bilirubin 0.4 (0.2-1.3) mg/dL AST 25 (14-36) U/L ALT 20 (4-34) U/L Alkaline Phosphatase 70 (38-126) U/L Troponin I <0.012 (0.000-0.034) ng/mL Total Protein 6.8 (6.3-8.2) g/dL Albumin 4.0 (3.5-5.0) g/dL Lipase 69 (23-300) U/L Urine Color Urine Appearance (Clear) Urine pH (5.0-8.0) Ur Specific [place] (1.001-1.035) Urine Protein (Negative) Urine Glucose (UA) (Negative) Urine Ketones (Negative) Urine Blood (Negative) Urine Nitrite (Negative) Urine Bilirubin (Negative) Urine Urobilinogen (<2.0) mg/dL Ur Leukocyte Esterase (Negative) Urine RBC (0-5) /hpf Urine WBC (0-5) /hpf Ur Squamous Epith Cells (0-4) /hpf Amorphous Sediment (None) /hpf Urine Bacteria (None) /hpf Urine Mucus (None) /hpf 03/04/20 Range/Units 20:15 WBC (3.8-10.6) k/uL RBC (3.80-5.40) m/uL Hgb (11.4-16.0) gm/dL Hct (34.0-46.0) % MCV (80.0-100.0) fL MCH (25.0-35.0) pg MCHC (31.0-37.0) g/dL RDW (11.5-15.5) % Plt Count (150-450) k/uL Neutrophils % % Lymphocytes % % Monocytes % % Eosinophils % % Basophils % % Neutrophils # (1.3-7.7) k/uL Lymphocytes # (1.0-4.8) k/uL Monocytes # (0-1.0) k/uL Eosinophils # (0-0.7) k/uL Basophils # (0-0.2) k/uL Sodium (137-145) mmol/L Potassium (3.5-5.1) mmol/L Chloride (98-107) mmol/L Carbon Dioxide (22-30) mmol/L Anion Gap mmol/L BUN (7-17) mg/dL Creatinine (0.52-1.04) mg/dL Est GFR (CKD-EPI)AfAm (>60 ml/min/1.73 sqM) Est GFR (CKD-EPI)NonAf (>60 ml/min/1.73 sqM) Glucose (74-99) mg/dL Calcium (8.4-10.2) mg/dL Magnesium (1.6-2.3) mg/dL Total Bilirubin (0.2-1.3) mg/dL AST (14-36) U/L ALT (4-34) U/L Alkaline Phosphatase (38-126) U/L Troponin I (0.000-0.034) ng/mL Total Protein (6.3-8.2) g/dL Albumin (3.5-5.0) g/dL Lipase (23-300) U/L Urine Color Yellow Urine Appearance Cloudy H (Clear) Urine pH 7.0 (5.0-8.0) Ur Specific [place] 1.013 (1.001-1.035) Urine Protein Negative (Negative) Urine Glucose (UA) 3+ H (Negative) Urine Ketones Negative (Negative) Urine Blood Negative (Negative) Urine Nitrite Negative (Negative) Urine Bilirubin Negative (Negative) Urine Urobilinogen <2.0 (<2.0) mg/dL Ur Leukocyte Esterase Trace H (Negative) Urine RBC 1 (0-5) /hpf Urine WBC 2 (0-5) /hpf Ur Squamous Epith Cells 5 H (0-4) /hpf Amorphous Sediment Rare H (None) /hpf Urine Bacteria Rare H (None) /hpf Urine Mucus Rare H (None) /hpf - EKG Data EKG shows normal: sinus rhythm Rate: normal EKG Comments: EKG obtained at 1920 shows normal sinus rhythm. Ventricular rate 93, MI interval 150, QRS duration 100, QT/QTC 378/469. Interpretation is normal ECG. - Radiology Data Radiology results: report reviewed Ultrasound of the abdomen was obtained. Positive sonographic Crespo sign. Gallbladder measures 9.7 cm in length and 4.2 cm in width. Liver appears enlarged and heterogeneous. Increased attenuation. Hypoechoic area near ga llbladder measures 2.3 x 3.5 x 1.[address] Lima includes gallstones. No dilated ducts. Oval-shaped area in the liver of doubtful significance. Disposition Clinical Impression: Nausea, Abdominal pain, Hyperglycemia Disposition: HOME SELF-CARE Condition: Good Instructions (If sedation given, give patient instructions): Acute Nausea and Vomiting (ED), Abdominal Pain (ED), Diabetic Hyperglycemia (ED) Additional Instructions: Follow-up with your primary care provider for recheck in the next 1-2 days. Take Zofran as needed for nausea. Eat small, frequent meals and maintain hydration. Monitor your blood sugar regularly. Return to the emergency department with any new, worsening, or concerning symptoms. Prescriptions: Ondansetron [Zofran ODT] 4 mg PO Q8HR PRN #10 tab PRN Reason: Nausea Is patient prescribed a controlled substance at d/c from ED?: No Referrals: Adriel Lima Jr, DO [Primary Care Provider] - 1-2 days Time of Disposition: 21:54
[2020-03-04 19:41] LABS: Basophils # (A) 0.1 k/uL (0-0.2); Basophils % (A) 1 %; Eosinophils # (A) 0.2 k/uL (0-0.7); Eosinophils % (A) 2 %; HCT 42.1 % (34.0-46.0); HGB 13.9 gm/dL (11.4-16.0); Lymphocytes # (A) 3.5 k/uL (1.0-4.8); Lymphocytes % (A) 32 %; MCH 28.1 pg (25.0-35.0); MCV 85.3 fL (80.0-100.0); Mean Platelet Volume 8.7; Monocytes # (A) 0.5 k/uL (0-1.0); Monocytes % (A) 5 %; Neutrophils # (A) 6.3 k/uL (1.3-7.7); Neutrophils % (A) 59 %; Platelet Count 282 k/uL (150-450); RBC 4.93 m/uL (3.80-5.40); RDW 14.8 % (11.5-15.5); WBC 10.7 k/uL (3.8-10.6)
[2020-03-04 19:47] LABS: ALT 20 U/L (4-34); AST 25 U/L (14-36); African American GFR (CKD) >90 (>60 ml/min/1.73 sqM); Alkaline Phosphatase 70 U/L (38-126); Anion Gap 8 mmol/L; Blood Urea Nitrogen 17 mg/dL (7-17); Calcium 9.8 mg/dL (8.4-10.2); Carbon Dioxide 21 mmol/L (22-30); Chloride 109 mmol/L (98-107); Glucose 244 mg/dL (74-99); Lipase 69 U/L (23-300); Magnesium 1.6 mg/dL (1.6-2.3); Non-African American GFR(CKD) >90 (>60 ml/min/1.73 sqM); Potassium 4.2 mmol/L (3.5-5.1); Sodium 138 mmol/L (137-145); Total Bilirubin 0.4 mg/dL (0.2-1.3); Total Protein 6.8 g/dL (6.3-8.2)
--- NOTE | 2020-03-04 20:14 | XR ---
EXAMINATION TYPE: XR chest 2V DATE OF EXAM: 03/04/2020 COMPARISON: 07/08/2019 HISTORY: Chest pain TECHNIQUE: FINDINGS: Heart and mediastinum are normal. Lungs are clear. Diaphragm is normal. Bony thorax appears normal. IMPRESSION: Normal chest. No change.
[2020-03-04 20:37] LABS: Amorphous Sediment,Urine Rare /hpf; Appearance,Urine Cloudy (Clear); Bacteria,Urine Rare /hpf; Bilirubin,Urine Negative (Negative); Blood,Urine Negative (Negative); Color,Urine Yellow; Glucose,Urine (UA) 3+ (Negative); Ketones,Urine Negative (Negative); Leukocyte Esterase,Urine Trace (Negative); Mucus,Urine Rare /hpf; Nitrite,Urine Negative (Negative); Protein,Urine Negative (Negative); RBC,Urine 1 /hpf (0-5); Specific Gravity,Urine 1.013 (1.001-1.035); Squamous Epithelial Cell,Urine 5 /hpf (0-4); Urobilinogen,Urine <2.0 mg/dL (<2.0); WBC,Urine 2 /hpf (0-5)
[2020-03-04 21:16] VITALS: RESP 16
--- NOTE | 2020-03-04 21:29 | US ---
EXAMINATION TYPE: US abdomen limited DATE OF EXAM: 03/04/2020 COMPARISON: US 2019, NM. CLINICAL HISTORY: Upper abd pain/vomiting. Upper abdominal pain and vomiting. Hx appendectomy. EXAM MEASUREMENTS: Liver Length: 23.79 cm Gallbladder Wall: 0.28 cm CBD: 0.45 cm Right Kidney: 13.1 x 6.4 x 6.2 cm Limited due to gas and patient body habitus. Pancreas: Tail obscured by overlying bowel gas. Liver: Appears enlarged and heterogeneous. Increased attenuation. Hypoechoic area seen near gallblad palomo measurin.3 x 3.5 x 1.6 cm. Gallbladder: Measures 9.7 cm in length and 4.2 cm in width. Fold seen near neck. Evidence for sonographic Crespo's sign: Yes CBD: Limited, portion seen appears wnl. Right Kidney: Measures enlarged. IMPRESSION: No gallstones. No dilated ducts. Oval-shaped area in the liver of doubtful significance.
[2020-03-04] MEDS ORDERED: ACET/COD 300 MG/30 MG STARTER PACK 6 TAB BTL PO STA (21:51)
[2020-03-04] MEDS ORDERED: MORPHINE SULFATE 4 MG/ML SYRINGE IVP STA (21:53)
[2020-03-04 22:19] VITALS: BP 115/68; PULSE 72; TEMP 98.4
== END 2020-03-04 22:15 | disposition home or self-care (01) ==
LOC: EC 17:32
DX: R10.12 Left upper quadrant pain (principal); R10.812 Left upper quadrant abdominal tenderness; R11.2 Nausea with vomiting, unspecified; I10 Essential (primary) hypertension; E11.40 Type 2 diabetes mellitus with diabetic neuropathy, unspecified; E11.65 Type 2 diabetes mellitus with hyperglycemia; J45.909 Unspecified asthma, uncomplicated; M54.9 Dorsalgia, unspecified; G47.33 Obstructive sleep apnea (adult) (pediatric); K21.9 Gastro-esophageal reflux disease without esophagitis; G43.909 Migraine, unspecified, not intractable, without status migrainosus; G40.909 Epilepsy, unspecified, not intractable, without status epilepticus; F17.200 Nicotine dependence, unspecified, uncomplicated; F32.9 Major depressive disorder, single episode, unspecified; F41.9 Anxiety disorder, unspecified; Z79.899 Other long term (current) drug therapy; Z79.4 Long term (current) use of insulin; Z79.51 Long term (current) use of inhaled steroids; Z88.2 Allergy status to sulfonamides; Z88.1 Allergy status to other antibiotic agents; Z88.8 Allergy status to other drugs, medicaments and biological substances; Z99.89 Dependence on other enabling machines and devices; Z85.42 Personal history of malignant neoplasm of other parts of uterus; Z90.89 Acquired absence of other organs; Z98.51 Tubal ligation status; Z85.41 Personal history of malignant neoplasm of cervix uteri
CPT/HCPCS: 36415; 93005; 80053; 83690; 83735; 84484; 85025; 81001; 71046; 76705; 99285; 96374; 96375; 96376; 96361; J2270 ×2; J2405

== ENCOUNTER → 2020-03-15 | Outpatient (CLI) | payer OTHER ==
[2020-03-15 10:23] LABS: Basophils # (A) 0.1 k/uL (0-0.2); Basophils % (A) 1 %; Eosinophils # (A) 0.2 k/uL (0-0.7); Eosinophils % (A) 2 %; HCT 43.7 % (34.0-46.0); HGB 14.4 gm/dL (11.4-16.0); Lymphocytes # (A) 4.9 k/uL (1.0-4.8); Lymphocytes % (A) 40 %; MCH 28.3 pg (25.0-35.0); MCHC 33.1 g/dL (31.0-37.0); MCV 85.4 fL (80.0-100.0); Mean Platelet Volume 8.6; Monocytes # (A) 0.6 k/uL (0-1.0); Monocytes % (A) 5 %; Neutrophils # (A) 6.3 k/uL (1.3-7.7); Neutrophils % (A) 51 %; Platelet Count 302 k/uL (150-450); RBC 5.11 m/uL (3.80-5.40); RDW 14.1 % (11.5-15.5); WBC 12.3 k/uL (3.8-10.6)
--- NOTE | 2020-03-15 16:02 | XR ---
AP pelvis HISTORY: K 57.92, trauma and pain Single frontal view of the pelvis, correlation sacrum and coccyx 11/08/2013 Sacroiliac joints are intact. Bone mineralization, joint spaces and alignment are maintained. IMPRESSION: No fracture or dislocation.
[2020-03-15 16:15] LABS: % Iron Saturation 12.92 (12.00-45.00); Total Bilirubin 0.2 mg/dL (0.2-1.2)
--- NOTE | 2020-03-15 16:17 | XR ---
Abdomen HISTORY: K 57.92, trauma and pain Frontal view the abdomen on 2 images The lung bases are clear. There calcification superimposed over the bilateral kidneys, the largest on the right measures approximately 6 mm, there are approximately 3-4 calcifications on the right. On t he left there are approximately 4 calcifications, largest at the upper pole measures 5 mm. There is n o evident bowel obstruction or pneumoperitoneum. Degenerative disc changes are noted within the visua lized lumbar spine, there is a spinal curvature. IMPRESSION: Bilateral nephrolithiasis.
--- NOTE | 2020-03-15 16:18 | XR ---
Right knee HISTORY: Pain, trauma 3 views the right knee There is joint space loss in the medial compartment, tricompartmental marginal spurring. Bone mineral ization and alignment are maintained. Vacuum phenomenon present and lateral compartment. No sizable j oint effusion. Soft tissue swelling present anteriorly. IMPRESSION: Osteoarthritis. No fracture or dislocation evident.
[2020-03-15 16:22] LABS: Ferritin 83.5 ng/mL (10.0-291.0)
== END | disposition home or self-care (01) ==
LOC: LABWHC1 09:29
PROVIDERS: ATTEND Family Medicine
DX: M25.561 Pain in right knee (principal); N20.0 Calculus of kidney; M17.11 Unilateral primary osteoarthritis, right knee; K57.92 Diverticulitis of intestine, part unspecified, without perforation or abscess without bleeding; K81.0 Acute cholecystitis; E61.1 Iron deficiency
CPT/HCPCS: 36415; 72170; 74018; 82150; 82247; 82728; 83540; 83550; 83690; 84450; 84460; 84466; 85025

== ENCOUNTER 2020-04-10 14:32 | Emergency (ER) | payer OTHER ==
[2020-04-10 14:45] VITALS: TEMP 98.1
[2020-04-10] MEDS ORDERED: SODIUM CHLORIDE 0.9% 1,000 ML IV STA (15:43)
[2020-04-10] MEDS ORDERED: FAMOTIDINE 20 MG/2 ML VIAL IV STA (15:43)
[2020-04-10 15:50] VITALS: RESP 18
[2020-04-10 15:56] LABS: Basophils # (A) 0.1 k/uL (0-0.2); Basophils % (A) 1 %; Eosinophils # (A) 0.2 k/uL (0-0.7); Eosinophils % (A) 2 %; HCT 43.2 % (34.0-46.0); HGB 14.5 gm/dL (11.4-16.0); Lymphocytes # (A) 3.6 k/uL (1.0-4.8); Lymphocytes % (A) 30 %; MCH 28.3 pg (25.0-35.0); MCHC 33.6 g/dL (31.0-37.0); MCV 84.4 fL (80.0-100.0); Mean Platelet Volume 9.2; Monocytes # (A) 0.6 k/uL (0-1.0); Monocytes % (A) 5 %; Neutrophils # (A) 7.1 k/uL (1.3-7.7); Neutrophils % (A) 60 %; Platelet Count 269 k/uL (150-450); RBC 5.12 m/uL (3.80-5.40); WBC 11.8 k/uL (3.8-10.6)
[2020-04-10 16:00] LABS: Appearance,Urine Clear (Clear); Bilirubin,Urine Negative (Negative); Blood,Urine Negative (Negative); Color,Urine Yellow; Glucose,Urine (UA) 4+ (Negative); Ketones,Urine Negative (Negative); Leukocyte Esterase,Urine Negative (Negative); Nitrite,Urine Negative (Negative); PH, Urine 6.5 (5.0-8.0); Protein,Urine Negative (Negative); Specific Gravity,Urine 1.028 (1.001-1.035); Urobilinogen,Urine <2.0 mg/dL (<2.0)
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
[2020-04-10 16:09] LABS: ALT 19 U/L (4-34); AST 18 U/L (14-36); Acetaminophen <10.0 ug/mL; African American GFR (CKD) >90 (>60 ml/min/1.73 sqM); Albumin 4.4 g/dL (3.5-5.0); Alcohol <10 mg/dL; Alkaline Phosphatase 84 U/L (38-126); Amylase 34 U/L (30-110); Anion Gap 11 mmol/L; Blood Urea Nitrogen 23 mg/dL (7-17); Calcium 9.8 mg/dL (8.4-10.2); Carbon Dioxide 23 mmol/L (22-30); Chloride 97 mmol/L (98-107); Glucose 405 mg/dL (74-99); Lipase 78 U/L (23-300); Non-African American GFR(CKD) >90 (>60 ml/min/1.73 sqM); Potassium 3.9 mmol/L (3.5-5.1); Salicylate <1.0 mg/dL; Sodium 131 mmol/L (137-145); Total Bilirubin 0.5 mg/dL (0.2-1.3); Total Protein 7.5 g/dL (6.3-8.2)
[2020-04-10 16:18] LABS: Amphetamine Screen,Urine Not Detected (NotDetected); Barbiturate Screen,Urine Not Detected (NotDetected); Benzodiazepines Screen,Urine Not Detected (NotDetected); Cocaine Screen,Urine Not Detected (NotDetected); Methadone Screen, Urine Not Detected (NotDetected); Opiate Screen,Urine Detected (NotDetected); Oxycodone Screen, Urine Not Detected (NotDetected); Phencyclidine Screen,Urine Not Detected (NotDetected); Tricyclic Antidepressant,Urine Not Detected (NotDetected); Urn Cannabinoid Scrn Not Detected (NotDetected)
--- NOTE | 2020-04-10 16:57 | CT ---
EXAMINATION TYPE: CT abdomen pelvis w con DATE OF EXAM: 04/10/2020 COMPARISON: 12/22/2015 HISTORY: Generalized pain with nausea and vomiting CT DLP: 1609.8 mGycm Automated exposure control for dose reduction was used. CONTRAST: Performed with IV Contrast, patient injected with 100 mL of Isovue 300. Images were obtained from the diaphragm to the floor the pelvis with IV contrast. FINDINGS: There is mild groundglass interstitial infiltrate at the posterior lung bases. Heart size is fairly n ormal. There is no pericardial effusion. Liver shows no focal defect. Spleen is intact. Stomach is intact. There is no evidence of pancreatic mass. Stomach has normal size and contour. Gallbladder appears normal. Gallbladder measures 4 x 6 cm. The bile ducts are not dilated. There is no adrenal mass. Kidneys show satisfactory contrast opacification. There is no hydronephrosi s. There is 2.5 cm cyst upper pole right kidney. There are multiple bilateral renal calculi that jaclyn ure up to 7 mm. There is no evidence of obstruction. The ureters are not dilated. There is no retrope ritoneal adenopathy. Bladder distends smoothly. There is no inguinal hernia. There is no free fluid i n the pelvis. Appendix is not seen. There is no sign of thickened appendix. This probably clips from appendectomy. Cecum is low in the pelvis. There is no mesenteric edema. There is no ascites or free air. There is no sign of a bowel obstructio n. IMPRESSION: Numerous bilateral renal calculi. No evidence of renal obstruction. There is clearing of the right si de hydronephrosis compared to old exam. Right renal cortical cysts. There is new bilateral lower lobe groundglass interstitial pneumonia.
[2020-04-10 17:10] LABS: Glucose,Whole Blood 319 mg/dL (75-99)
--- NOTE | 2020-04-10 18:53 | XR ---
EXAMINATION TYPE: XR chest 1V portable DATE OF EXAM: 04/10/2020 COMPARISON: 03/04/2020 HISTORY: Epigastric pain TECHNIQUE: FINDINGS: There is no heart failure nor confluent pneumonic infiltrate. Costophrenic angles are clear . There are no hilar masses. There are chest leads. IMPRESSION: No active cardiopulmonary disease. Normal heart. No change.
[2020-04-10] MEDS ORDERED: AZITHROMYCIN 500 MG TAB PO STA (18:54)
[2020-04-10 19:22] VITALS: BP 100/67; PULSE 100
== END 2020-04-10 19:22 | disposition home or self-care (01) ==
LOC: EC 14:32
DX: J18.9 Pneumonia, unspecified organism (principal); R10.13 Epigastric pain; Z20.828 Contact with and (suspected) exposure to other viral communicable diseases; I10 Essential (primary) hypertension; J45.909 Unspecified asthma, uncomplicated; G40.909 Epilepsy, unspecified, not intractable, without status epilepticus; F41.9 Anxiety disorder, unspecified; F32.9 Major depressive disorder, single episode, unspecified; K21.9 Gastro-esophageal reflux disease without esophagitis; E78.5 Hyperlipidemia, unspecified; E11.40 Type 2 diabetes mellitus with diabetic neuropathy, unspecified; G47.33 Obstructive sleep apnea (adult) (pediatric); F17.200 Nicotine dependence, unspecified, uncomplicated; Z79.899 Other long term (current) drug therapy; Z79.4 Long term (current) use of insulin; Z79.51 Long term (current) use of inhaled steroids; Z88.1 Allergy status to other antibiotic agents; Z88.2 Allergy status to sulfonamides; Z88.8 Allergy status to other drugs, medicaments and biological substances
CPT/HCPCS: 99284; 96374; 96361 ×3; 36415; 93005; 80053; 82150; 83690; 85025; 81003; 80306; 83520; 87635; 71045; 74177; G0480 ×2; Q9967; 80320; 80329

== ENCOUNTER → 2022-09-03 | Outpatient (CLI) | payer OTHER ==
--- NOTE | 2022-09-03 09:53 | MM ---
Reason for Exam: Clinical finding. Last mammogram was performed 9 year(s) and 2 month(s) ago. Indicated Problems: Lump or thickening of the left side. Patient History: Menarche at age 10. First Full-Term at age 23. Postmenopausal. Patient has history of breast feeding. Other cancer, age 38. Risk Values: [place] 5 year model risk: 1.1%. NCI Lifetime model risk: 8.4%. Prior Study Comparison: 09/10/2010 Bilateral Screening Mammogram, [facility]. 06/27/2013 Bilateral Diagnostic Mammogram, [facility]. Tissue Density: There are scattered fibroglandular densities. Findings: Analyzed By CAD. Prominent, rounded lymph node high in the left axilla. Further ultrasound evaluation recommended. Palpable marker placed along the upper outer quadrant anterior left breast. However, no significant mass, suspicious microcalcification, or other discrete abnormality is seen. Overall Assessment: Incomplete: need additional imaging evaluation, BI-RAD 0 Management: Diagnostic Breast Ultrasound of the left breast. Electronically signed and approved by: Jeferson Love M.D. Radiologist
--- NOTE | 2022-09-03 10:34 | USB ---
Reason for Exam: Clinical finding. Patient History: Menarche at age 10. First Full-Term at age 23. Postmenopausal. Patient has history of breast feeding. Other cancer, age 38. Risk Values: [place] 5 year model risk: 1.1%. NCI Lifetime model risk: 8.4%. Technique: Method: Whole Breast Handheld. Prior Study Comparison: 09/10/2010 Bilateral Screening Mammogram, [facility]. 06/27/2013 Bilateral Diagnostic Mammogram, [facility]. Findings: The whole breast of the left breast, the area of palpable concern of the left breast, the axilla of the left breast and the retroareolar of the left breast were scanned. A complete US of all four quadrants of the breast, axilla, and retro-areolar region were reviewed. No solid or cystic masses are identified. At the patient's palpable site adjacent to the nipple, no abnormality is identified. Careful scanning through the axilla shows 2 lymph nodes measuring: * 2.2 x 1.3 x 0.6 cm * And 1.9 x 1.7 x 0.7 cm. Both of these show that uniform cortex and maintain their echogenic fatty hilum. No suspicious lymphadenopathy. Precautionary three-month follow-up mammogram is recommended. Overall Assessment: Probably benign, BI-RAD 3 Management: Diagnostic Mammogram of the left breast in 3 months. Primarily to reassess the prominent axillary lymph node. Fairly benign appearance by ultrasound. Further clinical management of any suspicious palpable abnormalities. Patient should continue monthly self breast exams. Results were given to the patient verbally at the time of exam. Electronically signed and approved by: Jeferson Love M.D. Radiologist
== END | disposition home or self-care (01) ==
LOC: RADMAMWWP 09:01
PROVIDERS: ATTEND Family Medicine
DX: N63.20 Unspecified lump in the left breast, unspecified quadrant (principal); Z78.0 Asymptomatic menopausal state
CPT/HCPCS: 77066; 76641; G0279; 77062

== ENCOUNTER 2023-07-01 22:09 | Observation (INO) | payer OTHER ==
[2023-07-01 23:34] LABS: Amorphous Sediment,Urine Rare /hpf; Appearance,Urine Cloudy (Clear); Bacteria,Urine Occasional /hpf; Bilirubin,Urine Negative (Negative); Blood,Urine Moderate (Negative); Color,Urine Light Yellow; Glucose,Urine (UA) Negative (Negative); Ketones,Urine Negative (Negative); Leukocyte Esterase,Urine Large (Negative); Mucus,Urine Rare /hpf; Nitrite,Urine Negative (Negative); PH, Urine 7.5 (5.0-8.0); Protein,Urine Negative (Negative); RBC,Urine 10 /hpf (0-5); Specific Gravity,Urine 1.015 (1.001-1.035); Squamous Epithelial Cell,Urine 8 /hpf (0-4); Urobilinogen,Urine <2.0 mg/dL (<2.0); WBC,Urine 54 /hpf (0-5)
[2023-07-01 23:35] LABS: Basophils # (A) 0.1 k/uL (0-0.2); Basophils % (A) 1 %; Eosinophils # (A) 0.3 k/uL (0-0.7); Eosinophils % (A) 3 %; HCT 36.7 % (34.0-46.0); Lymphocytes # (A) 3.6 k/uL (1.0-4.8); Lymphocytes % (A) 31 %; MCH 27.7 pg (25.0-35.0); MCHC 32.6 g/dL (31.0-37.0); Mean Platelet Volume 9.3; Monocytes # (A) 0.7 k/uL (0-1.0); Monocytes % (A) 6 %; Neutrophils # (A) 6.8 k/uL (1.3-7.7); Neutrophils % (A) 58 %; Platelet Count 288 k/uL (150-450); RBC 4.32 m/uL (3.80-5.40); RDW 14.8 % (11.5-15.5); WBC 11.7 k/uL (3.8-10.6)
[2023-07-01] MEDS: HYDROmorphone 1 MG/ML 1 ML SYRINGE IVP STA (23:36)
[2023-07-01] MEDS: SODIUM CHLORIDE 0.9% 1,000 ML IV STA (23:37)
[2023-07-01 23:45] LABS: ALT 18 U/L (4-34); African American GFR (CKD) 64 (>60 ml/min/1.73 sqM); Albumin 3.8 g/dL (3.5-5.0); Anion Gap 6 mmol/L; Blood Urea Nitrogen 22 mg/dL (7-17); Calcium 9.1 mg/dL (8.4-10.2); Carbon Dioxide 26 mmol/L (22-30); Chloride 108 mmol/L (98-107); Glucose 124 mg/dL (74-99); Non-African American GFR(CKD) 55 (>60 ml/min/1.73 sqM); Sodium 140 mmol/L (137-145); Total Bilirubin 0.6 mg/dL (0.2-1.3); Total Protein 6.7 g/dL (6.3-8.2)
[2023-07-01 23:49] LABS: AST 31 U/L (14-36); Alkaline Phosphatase 65 U/L (38-126); Potassium 4.6 mmol/L (3.5-5.1)
--- NOTE | 2023-07-02 00:01 | CT ---
EXAM: CT Abdomen and Pelvis Without Intravenous Contrast CLINICAL HISTORY: ITS.REASON CT Reason: flank pain r/o stone TECHNIQUE: Axial computed tomography images of the abdomen and pelvis without intravenous contrast. CTDI is 17.4 mGy and DLP is 1050.4 mGy-cm. This CT exam was performed using one or more of the following dose reduction techniques: automated exposure control, adjustment of the mA and/or kV according to patient size, and/or use of iterative reconstruction technique. COMPARISON: No relevant prior studies available. FINDINGS: Lung bases: Unremarkable. No mass. No consolidation. ABDOMEN: Liver: Hepatic steatosis. Gallbladder and bile ducts: Unremarkable. No calcified stones. No ductal dilation. Pancreas: Unremarkable. No ductal dilation. Spleen: Unremarkable. No splenomegaly. Adrenals: Unremarkable. No mass. Kidneys and ureters: Obstructing 11 mm LEFT proximal ureter stone. Mild hydronephrosis of the LEFT kidney. Multiple bilateral nonobstructing renal calculi measuring up to 1 cm in size. Stomach and bowel: Diverticulosis, without acute diverticulitis. No small bowel obstruction. No free intraperitoneal air. PELVIS: Appendix: Normal appendix. Bladder: Decompressed urinary bladder. No stones. Reproductive: Unremarkable as visualized. ABDOMEN and PELVIS: Intraperitoneal space: Unremarkable. No free air. No significant fluid collection. Bones/joints: Degenerative changes of the spine. No acute fracture. No dislocation. Soft tissues: Unremarkable. Vasculature: Atherosclerotic changes of the aorta. No abdominal aortic aneurysm. Lymph nodes: Unremarkable. No enlarged lymph nodes. IMPRESSION: Obstructing 11 mm LEFT proximal ureter stone. Mild hydronephrosis of the LEFT kidney. Multiple bilateral nonobstructing renal calculi measuring up to 1 cm in size.
[2023-07-02] MEDS: KETOROLAC 15 MG/ML 1 ML VIAL IVP STA (00:49)
[2023-07-02] MEDS: ONDANSETRON 4 MG/2 ML VIAL IVP STA (00:52)
[2023-07-02] MEDS: HYDROmorphone 1 MG/ML 1 ML SYRINGE IVP STA (00:54)
[2023-07-02] MEDS: SODIUM CHLORIDE 0.9% 1,000 ML IV STA (00:58)
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
[2023-07-02] MEDS ORDERED: NALOXONE 0.4 MG/ML 1 ML VIAL IV PRN (01:11)
[2023-07-02] MEDS ORDERED: HYDROmorphone 0.5 MG/0.5 ML SYRINGE IVP PRN (01:11)
[2023-07-02] MEDS: cefTRIAXone IN SWFI 1,000 MG/10 ML SYRINGE IVP STA (01:56)
[2023-07-02] MEDS: SODIUM CHLORIDE 0.9% 1,000 ML IV SCH (01:57)
[2023-07-02] MEDS: ACETAMINOPHEN TAB 325 MG TAB PO PRN (04:18)
[2023-07-02] MEDS: ONDANSETRON 4 MG/2 ML VIAL IVP PRN ×2 (04:21→10:13)
[2023-07-02] MEDS: HYDROmorphone 1 MG/ML 1 ML SYRINGE IVP PRN (04:23)
[2023-07-02] MEDS ORDERED: LORazepam 1 MG TAB PO PRN (05:59)
[2023-07-02] MEDS ORDERED: HYDROcodone/APAP 10-325MG 1 EACH TAB PO PRN (05:59)
[2023-07-02] MEDS ORDERED: ONDANSETRON 4 MG/2 ML VIAL IVP PRN (06:02)
[2023-07-02] MEDS: NICOTINE 21MG/24HR PATCH TRANSDERM SCH (06:47)
[2023-07-02 07:18] LABS: Glucose,Whole Blood 149 mg/dL (70-110)
[2023-07-02] MEDS: INSULIN ASPART (NovoLOG) 100 UNIT/ML VIAL SQ SCH (07:19)
[2023-07-02] MEDS: INSULIN DETEMIR (LEVEMIR) 100 UNIT/ML SYR SQ SCH (07:19)
[2023-07-02] MEDS: metFORMIN 500 MG TAB PO SCH (07:20)
[2023-07-02] MEDS: DULoxetine HCL 30 MG CAPSULE.DR PO SCH (08:00)
[2023-07-02] MEDS: OXcarbazepine 300 MG TAB PO SCH (08:01)
[2023-07-02] MEDS: PANTOPRAZOLE 40 MG TABLET PO SCH (08:01)
[2023-07-02] MEDS: GABAPENTIN 300 MG CAP PO SCH (08:01)
[2023-07-02] MEDS: TOPIRAMATE 100 MG TAB PO SCH (08:01)
[2023-07-02] MEDS: FENOFIBRATE 160 MG TAB PO SCH (08:02)
[2023-07-02] MEDS: hydrALAZINE HCL 25 MG TAB PO SCH (08:02)
[2023-07-02] MEDS: DIVALPROEX ER 500 MG TAB.ER.24H PO SCH (08:02)
[2023-07-02] MEDS: LACOSAMIDE 50 MG TABLET PO SCH (08:05)
[2023-07-02] MEDS ORDERED: METOCLOPRAMIDE 5 MG/ML 2 ML VIAL IVP PRN (08:30)
[2023-07-02 11:43] LABS: Glucose,Whole Blood 164 mg/dL (70-110)
[2023-07-02] MEDS: LACTATED RINGERS 1,000 ML IV ONE (12:50)
[2023-07-02] MEDS: ONDANSETRON 4 MG/2 ML VIAL IVP ONE (12:59)
[2023-07-02] MEDS: DEXAMETHASONE SOD PHOSPHATE 4 MG/ML 1 ML VIAL IVP ONE (13:00)
[2023-07-02] MEDS ORDERED: SUCCINYLCHOLINE CHLORIDE 200 MG/10 ML VIAL IV ONE (13:53)
[2023-07-02] MEDS ORDERED: fentaNYL (PF) 50 MCG/ML 2 ML AMP ONE (13:53)
[2023-07-02] MEDS ORDERED: LIDOCAINE 1% INJ 10MG/ML (20 ML MDV) ONE (13:53)
[2023-07-02] MEDS ORDERED: MIDAZOLAM 2 MG/2 ML VIAL ONE (13:53)
[2023-07-02] MEDS ORDERED: PROPOFOL 10 MG/ML 20 ML VIAL IV ONE (13:53)
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
[2023-07-02] MEDS: SODIUM CHLORIDE 0.9% 100 ML with ceFAZolin 2,000 MG IV ONE (14:19)
[2023-07-02] MEDS: droPERidol 5 MG/2 ML VIAL IVP ONE (15:03)
[2023-07-02 15:31] LABS: Glucose,Whole Blood 172 mg/dL (70-110)
[2023-07-02 16:44] VITALS: BP 146/83; PULSE 84; RESP 16; TEMP 98.5
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
--- NOTE | 2023-07-02 19:17 | FL ---
EXAMINATION TYPE: FL guidance operating room DATE OF EXAM: 07/02/2023 Comparison: None Clinical History: 53-year-old female L ureteral stent placement Findings: layo ureteral stent placement, fl time 7.8 secs, DAP 1.5435 Gycm2. Impression: Fluoroscopy for urology procedure as above.
[2023-07-02] MEDS ORDERED: DULoxetine HCL 60 MG CAPSULE.DR PO SCH (21:00)
[2023-07-02] MEDS ORDERED: GABAPENTIN 300 MG CAP PO SCH (21:00)
[2023-07-02] MEDS ORDERED: LISINOPRIL-HCTZ 10-12.5 MG 1 EACH TAB PO SCH (21:00)
--- NOTE | 2023-07-02 22:00 | P.OP ---
Date of Procedure: 07/02/23 Preoperative Diagnosis: Left ureteral stone, bilateral ureteral stones Postoperative Diagnosis: Same Procedure(s) Performed: Cystoscopy, bilateral stent insertion Implants: 6 [place] by 24 cm stent in the bilateral ureters Anesthesia: SADAF Surgeon: Fazal Davis Estimated Blood Loss (ml): 1 Pathology: none sent Condition: stable Disposition: PACU Indications for Procedure: 53-year-old female presented to the hospital with a 1.1 cm left-sided proximal stone, bilateral renal stones, she is having symptoms mainly on the left but also having some right flank pain. Discussed with her that given her pain intractable nausea and vomiting and possible UTI recommend proceeding with left- sided stent insertion she also would like her right-sided stone addressed in the future, discussed we will also place a stent on the right. Discussed this is a temporary measure and she will require a bilateral ureteroscopy with holmium laser in the future to address her stones. Risk and benefit and rationale were discussed in detail Operative Findings: Left radiopaque uretera; stone, hydronephrotic drip seen from the left ureter upon stent insertion Description of Procedure: Patient brought the operating room, general anesthesia was induced. She was prepped and draped in sterile fashion placed in dorsolithotomy position. Cystoscopy through the 21 [place] sheath was inserted per urethra, cystoscopy was performed showed no abnormality within the bladder. Attention was then carried to the left ureteral orifice which was intubated with a sensor wire, I was able to advance the wire past the stone and into the kidney past the stone. Next a ureteral stent was passed over the wire, the proximal curl was visualized on fluoroscopy and the distal curl was visualized using the cystoscope. A hydronephrotic drip was seen from the stent. Attention was then carried to the right side which was also intubated with a sensor wire, the stent was advanced over the wire, the proximal curl was visualized under fluoroscopy and the distal curl was visualized using the cystoscope. The bladder was emptied at the end of the case. Patient tolerated procedure well was taken to recovery in stable condition
== END 2023-07-02 17:42 | disposition home or self-care (01) ==
LOC: EC 22:09 → 6NMEDSUR 07-02 01:12
PROVIDERS: ADMIT Family Medicine; ATTEND Family Medicine
DX: N13.2 Hydronephrosis with renal and ureteral calculous obstruction (principal); E11.9 Type 2 diabetes mellitus without complications; I10 Essential (primary) hypertension; E78.5 Hyperlipidemia, unspecified; G40.909 Epilepsy, unspecified, not intractable, without status epilepticus; J45.909 Unspecified asthma, uncomplicated; K21.9 Gastro-esophageal reflux disease without esophagitis; G47.33 Obstructive sleep apnea (adult) (pediatric); Z91.199 Patient's noncompliance with other medical treatment and regimen due to unspecified reason; F17.200 Nicotine dependence, unspecified, uncomplicated; E66.01 Morbid (severe) obesity due to excess calories; Z68.37 Body mass index [BMI] 37.0-37.9, adult; Z79.4 Long term (current) use of insulin; Z79.84 Long term (current) use of oral hypoglycemic drugs; Z79.899 Other long term (current) drug therapy; Z88.1 Allergy status to other antibiotic agents; Z88.2 Allergy status to sulfonamides; Z88.8 Allergy status to other drugs, medicaments and biological substances
CPT/HCPCS: 96376 ×2; 96361; 96374; 96375; 99284; 36415; 80053; 85025; 81001; 87040; 87086; 74176; 52332; G0378; C2625; C1769; S4990; J2250; J0330; J1100; J2405; J0690; J2001; J0696; J3010; J1170 ×2; J1885; J2704; J1790

== ENCOUNTER → 2023-07-17 | Outpatient (CLI) | payer OTHER ==
[2023-07-17 13:39] LABS: HCT 37.9 % (37.2-46.3); HGB 11.9 g/dL (12.0-15.0); MCHC 31.4 g/dL (32.0-37.0); MCV 85.9 FL (80.0-97.0); Mean Platelet Volume 11.8 FL (9.5-12.2); NRBC Per 100 WBC 0 X 10*3/uL (0.00-0.01); Platelet Count 390 X 10*3/uL (140-440); RBC 4.41 X 10*6/uL (4.10-5.20); WBC 12.55 X 10*3/uL (4.50-10.00)
[2023-07-17 14:03] LABS: Blood Urea Nitrogen 22.4 mg/dL (9.0-27.0); Calcium 10.1 mg/dL (8.7-10.3); Carbon Dioxide 22.6 mmol/L (21.6-31.8); Chloride 103 mmol/L (96-109); Glucose 194 mg/dL (70-110); Potassium 4.7 mmol/L (3.5-5.5); Sodium 138 mmol/L (135-145)
[2023-07-17 15:30] LABS: Basophils # (M) 0.25 X 10*3/uL (0.00-0.10); Lymphocytes # (M) 4.52 X 10*3/uL (0.90-5.00); Metamyelocytes % 1 % (0-0); Monocytes # (M) 0.25 X 10*3/uL (0.20-1.00); Myelocytes % 1 % (0-0); Neutrophils % (M) 54 %; RBC Morphology Normal (Normal)
[2023-07-17 22:51] LABS: Appearance,Urine Turbid (Clear); Bilirubin,Urine Small (Negative); Blood,Urine Large (Negative); Color,Urine Red (Yellow); Ketones,Urine Negative (Negative); Nitrite,Urine Positive (Negative); PH, Urine 5.5; Specific Gravity,Urine 1.021 (1.001-1.030); Urobilinogen,Urine 0.2 E.U./DL
[2023-07-17 23:24] LABS: Bacteria,Urine 1+ (None Seen); Calcium Oxalate Crystals,Urine Present (None Seen)
[2023-07-19 13:39] LABS: Neutrophils # (M) 6.78 X 10*3/uL (1.80-7.70)
== END | disposition home or self-care (01) ==
LOC: LABWHC1 08:33
PROVIDERS: ATTEND Urology
DX: Z01.812 Encounter for preprocedural laboratory examination (principal); N20.0 Calculus of kidney; N20.1 Calculus of ureter
CPT/HCPCS: 36415; 80048; 81001; 85025; 87086

== ENCOUNTER 2023-07-20 11:03 | Emergency (ER) | payer OTHER ==
[2023-07-20 11:15] VITALS: RESP 18; TEMP 98
--- NOTE | 2023-07-20 11:25 | ED ---
General Adult HPI - General Chief complaint: Abdominal Pain Stated complaint: Low BP Time Seen by Provider: 07/20/23 11:05 Source: patient, EMS, RN notes reviewed, old records reviewed Mode of arrival: EMS Limitations: no limitations - History of Present Illness Initial comments: This is a 53-year-old female who presents to the emergency department comp laining that she was told to come to the emergency department because her blood pressure was low. Patient was here for a procedure to remove kidney stones. Patient states they took her pressure and stated her pressure was too low and so they sent her to the emergency department. Patient did receive Zofran and antibiotic and 500 of fluid. Patient denies any difficulty breathing shortness of breath patient denies any chest pain or palpitation. Patient denies lightheadedness or dizziness. Patient states she has no symptoms at all. Patient states she did take her blood pressure medications this morning. - Related Data Home Medications Medication Instructions Recorded Confirmed Gabapentin [Neurontin] 300 mg PO DAILY 10/18/13 07/20/23 Lacosamide [Vimpat] 100 mg PO BID 01/16/14 07/20/23 DULoxetine HCL [Cymbalta] 30 mg PO DAILY 04/03/16 07/20/23 Divalproex ER [Depakote ER] 500 mg PO BID 04/03/16 07/20/23 Fenofibrate 160 mg PO DAILY 04/03/16 07/20/23 Hydrocodone/Acetaminophen [Sharon 1 tab PO TID 04/04/18 07/20/23 10-325] Omeprazole [PriLOSEC] 40 mg PO DAILY 04/04/18 07/20/23 hydrALAZINE HCL [Apresoline] 25 mg PO BID 04/04/18 07/20/23 metFORMIN HCL [Glucophage] 1,000 mg PO BID 04/04/18 07/20/23 Lisinopril-Hctz 10-12.5 mg 1 tab PO HS 03/06/19 07/20/23 [Zestoretic 10-12.5] Topiramate 200 mg PO BID 03/06/19 07/20/23 Albuterol Sulfate [Ventolin HFA] 1 - 2 puff INHALATION RT-Q6H PRN 03/04/20 07/20/23 DULoxetine HCL [Cymbalta] 60 mg PO HS 03/04/20 07/20/23 Gabapentin [Neurontin] 600 mg PO HS 03/04/20 07/20/23 LORazepam [Ativan] 1 mg PO DAILY PRN 03/04/20 07/20/23 OXcarbazepine [Trileptal] 600 mg PO BID 03/04/20 07/20/23 gemfibroziL [Lopid] 1,200 mg PO HS 03/04/20 07/20/23 INSULIN ASPART (NovoLOG) [NovoLOG 10 units SQ AC-TID 07/02/23 07/20/23 (formulary)] INSULIN ASPART (NovoLOG) [NovoLOG See Protocol SQ AC-TID 07/02/23 07/20/23 (formulary)] Insulin Glargine,Hum.rec.anlog 50 units SQ BID 07/02/23 07/20/23 [Lantus Solostar Pen] Fish Oil/Dha/Epa [Fish Oil 1,200 1 each PO DAILY 07/15/23 07/20/23 mg Fish Oil] Multivit with Calcium,Iron,Min 1 each PO DAILY 07/15/23 07/20/23 [Women's Multivitamin] Previous Rx's Medication Instructions Recorded Atorvastatin [Lipitor] 80 mg PO HS #30 tab 04/09/18 Cephalexin [Keflex] 500 mg PO Q8HR #21 cap 07/20/23 oxyBUTYnin chloride [Ditropan] 5 mg PO BID #30 tab 07/20/23 Allergies Allergy/AdvReac Type Severity Reaction Status Date / Time metoclopramide HCl Allergy Rash/Hives Verified 07/20/23 11:12 [From Reglan] sulfamethoxazole Allergy Unknown Verified 07/20/23 11:12 [From Bactrim] trimethoprim [From Bactrim] Allergy Unknown Verified 07/20/23 11:12 Review of Systems ROS Statement: Those systems with pertinent positive or pertinent negative responses have been documented in the HPI. ROS Other: All systems not noted in ROS Statement are negative. Past Medical History Past Medical History: Asthma, Cancer, Diabetes Mellitus, GERD/Reflux, Hyperlipidemia, Hypertension, Pneumonia, Renal Disease, Seizure Disorder, Sleep Apnea/CPAP/BIPAP Additional Past Medical History / Comment(s): IDDM type II, neuropathy bilateral legs, cervical cancer with surgery, bilateral pneumonia with influenza A, seizures since age 10 yrs after a fall out of back of pickup-no seizure in past few years, CPAP , cervical and back pain, DDD, migraines, kidney stones History of Any Multi-Drug Resistant Organisms: None Reported Past Surgical History: Appendectomy, Tubal Ligation Additional Past Surgical History / Comment(s): back/neck injections, cone procedure for uterine cancer, cyst removed from tailbone, R ovarian cyst removed. RECENT BILAT URETERAL STENTS Past Anesthesia/Blood Transfusion Reactions: Motion Sickness Additional Past Anesthesia/Blood Transfusion Reaction / Comment(s): james trophobia Past Psychological History: Anxiety, Depression Smoking Status: Current every day smoker Past Alcohol Use History: Rare Past Drug Use History: Marijuana - Past Family History Mother Family Medical History: CVA/TIA, Hypertension Additional Family Medical History / Comment(s): depression/anxiety Father Family Medical History: COPD Additional Family Medical History / Comment(s): mesothelioma General Exam - General Exam Comments Initial Comments: GENERAL: Patient is well-developed and well-nourished. Patient is nontoxic and well- hydrated and is in no acute distress. ENT: Neck is soft and supple. No significant lymphadenopathy is noted. Oropharynx is clear. Moist mucous membranes. Neck has full range of motion without eliciting any pain. EYES: The sclera were anicteric and conjunctiva were pink and moist. Extraocular movements were intact and pupils were equal round and reactive to light. Eyelids were unremarkable. PULMONARY: Unlabored respirations. Good breath sounds bilaterally. No audible rales rhonchi or wheezing was noted. CARDIOVASCULAR: There is a regular rate and rhythm without any murmurs gallops or rubs. ABDOMEN: Soft and nontender with normal bowel sounds. SKIN: Skin is clear with no lesions or rashes and otherwise unremarkable. NEUROLOGIC: Patient is alert and oriented x3. Cranial nerves II through XII are grossly intact. Motor and sensory are also intact. Normal speech, volume and content. Symmetrical smile. MUSCULOSKELETAL: Normal extremities with adequate strength and full range of motion. No lower extremity swelling or edema. No calf tenderness. LYMPHATICS: No significant lymphadenopathy is noted PSYCHIATRIC: Normal psychiatric evaluation. Limitations: no limitations Course Vital Signs 07/20/23 07/20/23 07/20/23 11:04 11:12 12:47 Temperature 98 F Pulse Rate 102 H 112 H Pulse Rate [ 101 H Right Sitting Pulse Oximetery ] Pulse Rate [ 107 H Right Standing Pulse Oximetery ] Pulse Rate [ 105 H Right Supine Pulse Oximetery ] Respiratory 18 18 Rate Blood Pressure 103/71 115/76 Blood Pressure 84/65 [Left Arm Sitting] Blood Pressure 100/71 [Left Arm Standing] Blood Pressure 85/68 [Left Arm Supine] O2 Sat by Pulse 95 98 Oximetry Medical Decision Making - Medical Decision Making EKG is interpreted by myself but EKG shows a sinus rhythm at 93 bpm parables 119 QRS is 114 QT interval 384 QTc is 435. Patient's EKG shows no ST segment ovation or depression. Was pt. sent in by a medical professional or institution (, [facility], LONG DISTANCE BILLING OPERATOR, urgent care, hospital, or detention...) When possible be specific @ -Patient was sent down to us from anesthesia and preop Did you speak to anyone other than the patient for history (EMS, parent, family, police, friend...)? What history was obtained from this source @ -No Did you review nursing and triage notes (agree or disagree)? Why? @ -I reviewed and agree with nursing and triage notes Were old charts reviewed (outside hosp., previous admission, EMS record, old EKG, old radiological studies, urgent care reports/EKG's, detention records)? Report findings @ -No old charts were reviewed Differential Diagnosis (chest pain, altered mental status, abdominal pain women, abdominal pain men, vaginal bleeding, weakness, fever, dyspnea, syncope, headache, dizziness, GI bleed, back pain, seizure, CVA, palpatations, mental health, musculoskeletal)? @ -Dehydration, sepsis, medication effect, cardiac issue, this is not an all- inclusive list EKG interpreted by me (3pts min.). @ -As above X-rays interpreted by me (1pt min.). @ -Chest x-ray shows no acute abnormality CT interpreted by me (1pt min.). @ -None done U/S interpreted by me (1pt. min.). @ -None done What testing was considered but not performed or refused? (CT, X-rays, U/S, labs)? Why? @ -None What meds were considered but not given or refused? Why? @ -None Did you discuss the management of the patient with other professionals (professionals i.e. , PA, LONG DISTANCE BILLING OPERATOR, lab, RT, psych nurse, social services aide, cigarette machine operator, teacher, medical officer, shoe parts caser)? Give summary @ -No Was smoking cessation discussed for >3mins.? @ -No Was critical care preformed (if so, how long)? @ -No Were there social determinants of health that impacted care today? How? (Homelessness, low income, unemployed, alcoholism, drug addiction, transportation, low edu. Level, literacy, decrease access to med. care, longterm, rehab)? @ -No Was there de-escalation of care discussed even if they declined (Discuss DNR or withdrawal of care, Hospice)? DNR status @ -No What co-morbidities impacted this encounter? (DM, HTN, Smoking, COPD, CAD, Cancer, CVA, ARF, Chemo, Hep., AIDS, mental health diagnosis, sleep apnea, morbid obesity)? @ -None Was patient admitted / discharged? Hospital course, mention meds given and route, prescriptions, significant lab abnormalities, going to OR and other pertinent info. @ -Patient was given a liter of fluid and her blood pressure came back within normal normal range. Patient was asymptomatic throughout her whole course in the emergency department. Patient was up and ambulatory without problems. Undiagnosed new problem with uncertain prognosis? @ -No Drug Therapy requiring intensive monitoring for toxicity (Heparin, Nitro, Insulin, Cardizem)? @ -No Were any procedures done? @ -No Diagnosis/symptom? @ -Transient hypotension Acute, or Chronic, or Acute on Chronic? @ -Acute Uncomplicated (without systemic symptoms) or Complicated (systemic symptoms)? @ -Complicated Side effects of treatment? @ -No Exacerbation, Progression, or Severe Exacerbation? @ -No Poses a threat to life or bodily function? How? (Chest pain, [place], [place], pneumonia, PE, COPD, DKA, ARF, appy, cholecystitis, CVA, Diverticulitis, Homicidal, Suicidal, threat to staff... and all critical care pts) @ -No - Lab Data Result diagrams: 07/20/23 11:38 07/20/23 11:38 Lab Results 07/20/23 07/20/23 07/20/23 Range/Units 11:38 11:38 11:38 WBC 12.5 H (3.8-10.6) k/uL RBC 4.47 (3.80-5.40) m/uL Hgb 12.2 (11.4-16.0) gm/dL Hct 38.1 (34.0-46.0) % MCV 85.1 (80.0-100.0) fL MCH 27.3 (25.0-35.0) pg MCHC 32.1 (31.0-37.0) g/dL RDW 14.7 (11.5-15.5) % Plt Count 376 (150-450) k/uL MPV 9.0 Neutrophils % 64 % Lymphocytes % 28 % Monocytes % 4 % Eosinophils % 3 % Basophils % 1 % Neutrophils # 8.0 H (1.3-7.7) k/uL Lymphocytes # 3.5 (1.0-4.8) k/uL Monocytes # 0.5 (0-1.0) k/uL Eosinophils # 0.3 (0-0.7) k/uL Basophils # 0.1 (0-0.2) k/uL PT 10.7 (10.0-12.5) sec INR 1.0 (<1.2) APTT 24.8 (22.0-30.0) sec Sodium 139 (137-145) mmol/L Potassium 3.9 (3.5-5.1) mmol/L Chloride 108 H (98-107) mmol/L Carbon Dioxide 22 (22-30) mmol/L Anion Gap 9 mmol/L BUN 19 H (7-17) mg/dL Creatinine 0.95 (0.52-1.04) mg/dL Est GFR (CKD-EPI)AfAm 79 (>60 ml/min/1.73 sqM) Est GFR (CKD-EPI)NonAf 69 (>60 ml/min/1.73 sqM) Glucose 116 H (74-99) mg/dL Calcium 9.7 (8.4-10.2) mg/dL Magnesium 1.6 (1.6-2.3) mg/dL Total Bilirubin 0.3 (0.2-1.3) mg/dL AST 19 (14-36) U/L ALT 14 (4-34) U/L Alkaline Phosphatase 65 (38-126) U/L Troponin I (0.000-0.034) ng/mL Total Protein 6.8 (6.3-8.2) g/dL Albumin 3.9 (3.5-5.0) g/dL 07/20/23 Range/Units 11:38 WBC (3.8-10.6) k/uL RBC (3.80-5.40) m/uL Hgb (11.4-16.0) gm/dL Hct (34.0-46.0) % MCV (80.0-100.0) fL MCH (25.0-35.0) pg MCHC (31.0-37.0) g/dL RDW (11.5-15.5) % Plt Count (150-450) k/uL MPV Neutrophils % % Lymphocytes % % Monocytes % % Eosinophils % % Basophils % % Neutrophils # (1.3-7.7) k/uL Lymphocytes # (1.0-4.8) k/uL Monocytes # (0-1.0) k/uL Eosinophils # (0-0.7) k/uL Basophils # (0-0.2) k/uL PT (10.0-12.5) sec INR (<1.2) APTT (22.0-30.0) sec Sodium (137-145) mmol/L Potassium (3.5-5.1) mmol/L Chloride (98-107) mmol/L Carbon Dioxide (22-30) mmol/L Anion Gap mmol/L BUN (7-17) mg/dL Creatinine (0.52-1.04) mg/dL Est GFR (CKD-EPI)AfAm (>60 ml/min/1.73 sqM) Est GFR (CKD-EPI)NonAf (>60 ml/min/1.73 sqM) Glucose (74-99) mg/dL Calcium (8.4-10.2) mg/dL Magnesium (1.6-2.3) mg/dL Total Bilirubin (0.2-1.3) mg/dL AST (14-36) U/L ALT (4-34) U/L Alkaline Phosphatase (38-126) U/L Troponin I <0.012 (0.000-0.034) ng/mL Total Protein (6.3-8.2) g/dL Albumin (3.5-5.0) g/dL Disposition Clinical Impression: Transient hypotension Disposition: HOME SELF-CARE Condition: Good Instructions (If sedation given, give patient instructions): Hypotension (ED) Is patient prescribed a controlled substance at d/c from ED?: No Referrals: Adriel Lima Jr, [Primary Care Provider] - 1-2 days Time of Disposition: 13:29
[2023-07-20] MEDS: SODIUM CHLORIDE 0.9% 1,000 ML IV STA (11:36)
[2023-07-20 11:52] LABS: Basophils # (A) 0.1 k/uL (0-0.2); Basophils % (A) 1 %; Eosinophils # (A) 0.3 k/uL (0-0.7); Eosinophils % (A) 3 %; HCT 38.1 % (34.0-46.0); HGB 12.2 gm/dL (11.4-16.0); Lymphocytes # (A) 3.5 k/uL (1.0-4.8); Lymphocytes % (A) 28 %; MCH 27.3 pg (25.0-35.0); MCHC 32.1 g/dL (31.0-37.0); MCV 85.1 fL (80.0-100.0); Monocytes # (A) 0.5 k/uL (0-1.0); Monocytes % (A) 4 %; Neutrophils % (A) 64 %; Platelet Count 376 k/uL (150-450); RBC 4.47 m/uL (3.80-5.40); RDW 14.7 % (11.5-15.5); WBC 12.5 k/uL (3.8-10.6)
--- NOTE | 2023-07-20 11:56 | XR ---
EXAMINATION TYPE: XR chest 2V DATE OF EXAM: 07/20/2023 COMPARISON: 04/10/2020 TECHNIQUE: PA and lateral views submitted. HISTORY: Chest pain FINDINGS: Limited inspiration with perihilar and subsegmental areas of patchy infiltrate. A tiny left effusion. No sizable right effusion. No pneumothorax. Heart size normal. IMPRESSION: 1. Coarsened interstitium and subsegmental changes may be related to poor inspiration and atelectasis rather than pneumonia or interstitial pneumonitis. Correlate clinically.
[2023-07-20 12:12] LABS: ALT 14 U/L (4-34); AST 19 U/L (14-36); African American GFR (CKD) 79 (>60 ml/min/1.73 sqM); Albumin 3.9 g/dL (3.5-5.0); Alkaline Phosphatase 65 U/L (38-126); Anion Gap 9 mmol/L; Blood Urea Nitrogen 19 mg/dL (7-17); Calcium 9.7 mg/dL (8.4-10.2); Carbon Dioxide 22 mmol/L (22-30); Chloride 108 mmol/L (98-107); Glucose 116 mg/dL (74-99); Magnesium 1.6 mg/dL (1.6-2.3); Non-African American GFR(CKD) 69 (>60 ml/min/1.73 sqM); Potassium 3.9 mmol/L (3.5-5.1); Sodium 139 mmol/L (137-145); Total Bilirubin 0.3 mg/dL (0.2-1.3); Total Protein 6.8 g/dL (6.3-8.2)
[2023-07-20 12:48] LABS: Partial Thromboplastin Time 24.8 sec (22.0-30.0); Prothrombin Time 10.7 sec (10.0-12.5)
[2023-07-20 13:05] VITALS: BP 115/76; PULSE 112
== END 2023-07-20 13:44 | disposition home or self-care (01) ==
LOC: EC 11:03
DX: I95.89 Other hypotension (principal); F17.200 Nicotine dependence, unspecified, uncomplicated; F12.90 Cannabis use, unspecified, uncomplicated; Z88.8 Allergy status to other drugs, medicaments and biological substances; Z88.1 Allergy status to other antibiotic agents; Z88.2 Allergy status to sulfonamides
CPT/HCPCS: 36415; 71046; 80053; 83735; 84484; 85025; 85610; 85730; 93005; 96360; 96361; 99284

== ENCOUNTER → 2023-07-20 | Day surgery (SDC) | payer OTHER ==
[2023-07-15 10:21] VITALS: BMI 39.2
[~2023-07-20] MED LIST: HYDROmorphone 0.5 MG/0.5 ML SYRINGE IVP PRN; LIDOCAINE 1% (10MG/ML) FOR IV START INTRADERMA PRN; droPERidol 5 MG/2 ML VIAL IVP ONE
--- NOTE | 2023-07-20 09:04 | P.HPIHPCON ---
History of Present Illness H&P Date: 07/20/23 Chief Complaint: Bilateral renal stone, left ureteral stone This is a 53-year-old female with a history of a 1.1 cm left-sided proximal stone, bilateral renal stone, right-sided renal stone burden is greater than 1 cm. She is status post bilateral stent insertion on July 01, presents today for definitive stone management. Discussed with her option of a bilateral ureteroscopy with holmium laser. Aware the risk which includes but not limited to bleeding, infection, injury to the ureter. Risk of anesthesia was also discussed. She understood all the risk and agreed to proceed Consent for Procedure: I have explained the operation/procedure to the patient, including the risks, benefits, side effects, alternative therapies (including not receiving the proposed treatment or service), the likelihood of the patient achieving his/her goals, and potential recuperation problems for the procedure/sedation/analgesia, as well as any blood products, if indicated. I also explained to the patient the risks, benefits and side effects of the alternatives, as well as the risks related to not receiving the proposed procedure, care, treatment, or services. Past Medical History Past Medical History: Asthma, Cancer, Diabetes Mellitus, GERD/Reflux, Hyperlipidemia, Hypertension, Pneumonia, Renal Disease, Seizure Disorder, Sleep Apnea/CPAP/BIPAP Additional Past Medical History / Comment(s): IDDM type II, neuropathy bilateral legs, cervical cancer with surgery, bilateral pneumonia with influenza A, seizures since age 10 yrs [facility]-no seizure in past few years, CPAP , cervical and back pain, DDD, migraines, kidney stones History of Any Multi-Drug Resistant Organisms: None Reported Past Surgical History: Appendectomy, Tubal Ligation Additional Past Surgical History / Comment(s): back/neck injections, cone procedure for uterine cancer, cyst removed from tailbone, R ovarian cyst removed. RECENT BILAT URETERAL STENTS Past Anesthesia/Blood Transfusion Reactions: Motion Sickness Additional Past Anesthesia/Blood Transfusion Reaction / Comment(s): claustrophobia Past Psychological History: Anxiety, Depression Additional Psychological History / Comment(s): Pt resides with family. 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 They have 2 boxer dogs. She drives some. Smoking Status: Current every day smoker Past Alcohol Use History: Rare Additional Past Alcohol Use History / Comment(s): Pt started smoking in 1980 and is a 2 ppd smoker. Past Drug Use History: Marijuana Additional Drug Use History / Comment(s): USES EDIBLES AT HS FOR SLEEP- INSTRUCTED TO REFRAIN FROM USE FOR AT LEAST 24 HOURS PRIOR TO PROCEDURE - Past Family History Mother Family Medical History: CVA/TIA, Hypertension Additional Family Medical History / Comment(s): depression/anxiety Father Family Medical History: COPD Additional Family Medical History / Comment(s): mesothelioma Medications and Allergies Home Medications Medication Instructions Recorded Confirmed Type Gabapentin [Neurontin] 300 mg PO DAILY 10/18/13 07/15/23 History Lacosamide [Vimpat] 100 mg PO BID 01/16/14 07/15/23 History DULoxetine HCL [Cymbalta] 30 mg PO DAILY 04/03/16 07/15/23 History Divalproex ER [Depakote ER] 500 mg PO BID 04/03/16 07/15/23 History Fenofibrate 160 mg PO DAILY 04/03/16 07/15/23 History Hydrocodone/Acetaminophen [[place] 1 tab PO TID 04/04/18 07/15/23 History 10-325] Omeprazole [PriLOSEC] 40 mg PO DAILY 04/04/18 07/15/23 History hydrALAZINE HCL [Apresoline] 25 mg PO BID 04/04/18 07/15/23 History metFORMIN HCL [Glucophage] 1,000 mg PO BID 04/04/18 07/15/23 History Atorvastatin [Lipitor] 80 mg PO HS #30 tab 04/09/18 07/15/23 Rx Lisinopril-Hctz 10-12.5 mg 1 tab PO HS 03/06/19 07/15/23 History [Zestoretic 10-12.5] Topiramate 200 mg PO BID 03/06/19 07/15/23 History Albuterol Sulfate [Ventolin HFA] 1 - 2 puff INHALATION RT-Q6H PRN 03/04/20 07/15/23 History DULoxetine HCL [Cymbalta] 60 mg PO HS 03/04/20 07/15/23 History Gabapentin [Neurontin] 600 mg PO HS 03/04/20 07/15/23 History LORazepam [Ativan] 1 mg PO DAILY PRN 03/04/20 07/15/23 History OXcarbazepine [Trileptal] 600 mg PO BID 03/04/20 07/15/23 History gemfibroziL [Lopid] 1,200 mg PO HS 03/04/20 07/15/23 History INSULIN ASPART (NovoLOG) [NovoLOG 10 units SQ AC-TID 07/02/23 07/15/23 History (formulary)] INSULIN ASPART (NovoLOG) [NovoLOG See Protocol SQ AC-TID 07/02/23 07/15/23 History (formulary)] Insulin Glargine,Hum.rec.anlog 50 units SQ BID 07/02/23 07/15/23 History [Lantus Solostar Pen] Fish Oil/Dha/Epa [Fish Oil 1,200 1 each PO DAILY 07/15/23 07/15/23 History mg Fish Oil] Multivit with Calcium,Iron,Min 1 each PO DAILY 07/15/23 07/15/23 History [Women's Multivitamin] Allergies Allergy/AdvReac Type Severity Reaction Status Date / Time sulfamethoxazole Allergy Unknown Verified 07/15/23 09:37 [From Bactrim] trimethoprim [From Bactrim] Allergy Unknown Verified 07/15/23 09:37 metoclopramide HCl AdvReac Confusion Verified 07/15/23 09:37 [From Reglan] Surgical - Exam - General no distress, moderate pain - Eyes normal ocular movement, no pale - ENT normal nares, normal mucosa - Respiratory normal expansion, normal respiratory effort - Abdomen Abdomen: soft, non tender - Psychiatric oriented to time, oriented to person, oriented to place Assessment and Plan Assessment: OR for bilateral ureteroscopy, holmium laser lithotripsy, stone basketing, possible stent removal versus exchange
--- NOTE | 2023-07-20 09:52 | XR ---
EXAMINATION TYPE: XR KUB DATE OF EXAM: 07/20/2023 COMPARISON: 07/01/2023 HISTORY: Flank pain TECHNIQUE: One view abdominal series FINDINGS: Right kidney: There are 5 calcifications overlying the right kidney. Additional punctate 1 to 2 mm ca lcification suspected. Double-J ureteral stent is seen within the proximal margin stent likely within the renal pelvis or proximal ureter. Left kidney: There is a proximal UPJ calcification measuring 1.2 cm. There are numerous (approximatel y 7-8) punctate 1 to 2 mm calculi. No additional calculi overlying the ureteral stents. Osseous structures intact. Bowel gas pattern non specific. A right hemipelvic calcification likely lies outside the ureter. IMPRESSION: 1. Bilateral nephrolithiasis with proximal left ureteral\UPJ 1.2 cm calcification
[2023-07-20] MEDS: ONDANSETRON 4 MG/2 ML VIAL IVP ONE (10:19)
[2023-07-20] MEDS: LACTATED RINGERS 1,000 ML IV SCH (10:19)
[2023-07-20] MEDS: DEXAMETHASONE SOD PHOSPHATE 4 MG/ML 1 ML VIAL IV ONE (10:19)
[2023-07-20 10:24] LABS: Glucose,Whole Blood 113 mg/dL (70-110)
[2023-07-20 10:36] VITALS: RESP 16; TEMP 97.8
--- NOTE | 2023-07-20 10:53 | P.PN ---
Progress Note - Text Progress Note Date: 07/20/23 On evaluation in the preoperative area patient was hypotensive in the 80s over 40s. Initially heart rate has been running in the 100s to 110s. She is also complaining of bladder pressure, associated with nausea and vomiting. She was prescribed antibiotics yesterday, but has not started them yet. Discussed with her given her possible UTI, and not being on preoperative antibiotics in addition to her vital signs I am concerned for sepsis. Discussed with her at this point given this concern we will hold off on proceeding with surgery, she will be sent to the emergency department for further evaluation. From my end we will plan on getting her surgery rescheduled in the next couple weeks.
[2023-07-20 11:14] VITALS: BP 86/58; PULSE 115
== END ==
LOC: OR 09:09
PROVIDERS: ATTEND Urology
DX: N20.2 Calculus of kidney with calculus of ureter (principal); Z53.09 Procedure and treatment not carried out because of other contraindication; I95.9 Hypotension, unspecified; R11.2 Nausea with vomiting, unspecified; E11.69 Type 2 diabetes mellitus with other specified complication; E78.5 Hyperlipidemia, unspecified; J45.909 Unspecified asthma, uncomplicated; K21.9 Gastro-esophageal reflux disease without esophagitis; I12.9 Hypertensive chronic kidney disease with stage 1 through stage 4 chronic kidney disease, or unspecified chronic kidney disease; E11.22 Type 2 diabetes mellitus with diabetic chronic kidney disease; N18.9 Chronic kidney disease, unspecified; G40.909 Epilepsy, unspecified, not intractable, without status epilepticus; G47.30 Sleep apnea, unspecified; E11.42 Type 2 diabetes mellitus with diabetic polyneuropathy; F17.200 Nicotine dependence, unspecified, uncomplicated; Z79.84 Long term (current) use of oral hypoglycemic drugs; Z79.899 Other long term (current) drug therapy; Z79.4 Long term (current) use of insulin; Z88.2 Allergy status to sulfonamides; Z88.3 Allergy status to other anti-infective agents; Z88.8 Allergy status to other drugs, medicaments and biological substances
CPT/HCPCS: 74018; J1100; J0690; J2405

== ENCOUNTER 2023-07-30 11:37 | Day surgery (SDC) | payer OTHER ==
[2023-07-27 10:44] VITALS: BMI 39.2
--- NOTE | 2023-07-30 12:16 | XR ---
EXAMINATION TYPE: XR KUB DATE OF EXAM: 07/30/2023 11:57 AM CLINICAL INDICATION:Female, 53 years old with history of Ureteral/Renal Stone N20.1 N20.0 COMPARISON: 07/20/2023. TECHNIQUE: One radiographic view of the abdomen was obtained. FINDINGS: Bilateral renal stents the right stent appears retracted from the renal pelvis. It appears to be partly 6 cm below the expected location of the renal sinus on the right. Multiple calcification s project over the kidneys bilaterally measuring 9 mm in the right and 13 mm in the left. IMPRESSION: 1. Similar suspected malpositioned right ureteral stent. 2. Left ureteral stent in appropriate position. 3. Bilateral renal calculi.
[2023-07-30] MEDS ORDERED: HYDROmorphone 0.5 MG/0.5 ML SYRINGE IVP PRN (12:36)
[2023-07-30] MEDS ORDERED: droPERidol 5 MG/2 ML VIAL IVP ONE (12:36)
[2023-07-30] MEDS ORDERED: LIDOCAINE 1% (10MG/ML) FOR IV START INTRADERMA PRN (12:36)
[2023-07-30 12:55] VITALS: RESP 16
[2023-07-30] MEDS: LACTATED RINGERS 1,000 ML IV SCH (13:01)
[2023-07-30] MEDS: ONDANSETRON 4 MG/2 ML VIAL IVP ONE (13:06)
[2023-07-30] MEDS: DEXAMETHASONE SOD PHOSPHATE 4 MG/ML 1 ML VIAL IV ONE (13:06)
[2023-07-30 13:07] LABS: Glucose,Whole Blood 80 mg/dL (70-110)
[2023-07-30] MEDS ORDERED: PROPOFOL 10 MG/ML 20 ML VIAL IV ONE (14:44)
[2023-07-30] MEDS ORDERED: NEOSTIGMINE 1 MG/ML 10 ML VIAL ONE (14:44)
[2023-07-30] MEDS ORDERED: LIDOCAINE 1% INJ 10MG/ML (20 ML MDV) ONE (14:44)
[2023-07-30] MEDS ORDERED: ROCURONIUM 10 MG/ML (5 ML VIAL) IV ONE (14:44)
[2023-07-30] MEDS ORDERED: fentaNYL (PF) 50 MCG/ML 2 ML AMP ONE (14:44)
[2023-07-30] MEDS ORDERED: MIDAZOLAM 2 MG/2 ML VIAL ONE (14:44)
[2023-07-30] MEDS ORDERED: GLYCOPYRROLATE 0.2 MG/ML 2 ML VIAL ONE (14:44)
[2023-07-30] MEDS ORDERED: SUCCINYLCHOLINE CHLORIDE 200 MG/10 ML VIAL IV ONE (14:44)
[2023-07-30] MEDS: LACTATED RINGERS 1,000 ML IV ONE (16:02)
--- NOTE | 2023-07-30 16:40 | P.OP ---
Date of Procedure: 07/30/23 Preoperative Diagnosis: Left ureteral, bilateral renal stones Postoperative Diagnosis: Same Procedure(s) Performed: Cystoscopy, bilateral ureteroscopy, holmium laser lithotripsy, stone basketing and stent insertion Implants: 6 Hungarian by 26 cm stent in the bilateral ureter left on a string Anesthesia: [facility] Surgeon: Fazal Davis Estimated Blood Loss (ml): 5 Pathology: other (bilateral kidney stones) Condition: stable Disposition: PACU Indications for Procedure: This is a 53-year-old female with a history of a 1.1 cm left-sided proximal stone, bilateral renal stone, right-sided renal stone burden is greater than 1 cm. She is status post bilateral stent insertion on July 01, presents today for definitive stone management. Discussed with her option of a bilateral ureteroscopy with holmium laser. Aware the risk which includes but not limited to bleeding, infection, injury to the ureter. Risk of anesthesia was also discussed. She understood all the risk and agreed to proceed Operative Findings: Large left-sided proximal stone, multiple bilateral renal stones Description of Procedure: Patient brought to the operating room, general anesthesia was induced. She was prepped and draped in sterile fashion and placed in dorsolithotomy position. Cystoscopy fitted through the 21 Hungarian sheath was inserted per urethra, cystoscopy was performed which showed no abnormality within the bladder. Both stents appear to be moderately encrusted. Using the stent grasper both stents were removed. Next the left ureteral orifice was intubated with a sensor wire. Next under fluoroscopy 1113 Hungarian access sheath was passed over the wire and into the proximal ureter just distal to the stone. Next a flexible ureteroscope was inserted through the access sheath, at this point the stone was visualized, the stone was radiopaque. Using the holmium laser the stone was dusted. Sizable stone fragments were removed using the stone basket. This time the ureteroscope was advanced into the kidney, complete renoscopy was performed which showed multiple stones, stones were also dusted, repeat renoscopy showed no sizable fragments or injury to the kidney, on fluoroscopy there was no radiopaque densities. Pullback ureteroscopy was performed which showed no injury to the ureter or any ureteral stones, as ureteroscope was withdrawn and a sensor wire was advanced through. Next a ureteral stent was passed over the wire, the proximal curl was visualized on fluoroscopy and the distal curl was visualized using the cystoscope. The bladder was emptied. Attention was then carried to the right side which was also intubated with a sensor wire. Under fluoroscopy and 1113 Hungarian access sheath was passed over the wire into the proximal ureter. The flexible ureteroscope was inserted through the access sheath, renoscopy was performed which showed multiple sizable stones within the kidney. Using the holmium laser the stones were dusted. Repeat renoscopy showed no sizable fragments or injury to the kidney. Pullback ureteroscopy was performed which showed no injury to the kidney or any ureteral stones, as ureteroscope was withdrawn and a sensor wire was advanced through. Next a ureteral stent was passed over the wire, the proximal curl was visualized on fluoroscopy and the distal curl was visualized using the cystoscope. Both stents were left on a string and taped to the patient's thigh. Bladder was emptied at the end of the case. Patient was awakened from anesthesia and taken to recovery in stable condition
[2023-07-30 16:51] VITALS: TEMP 97.1
[2023-07-30 17:29] LABS: Glucose,Whole Blood 115 mg/dL (70-110)
[2023-07-30] MEDS ORDERED: KETOROLAC 15 MG/ML 1 ML VIAL ONE (17:51)
[2023-07-30] MEDS: KETOROLAC 15 MG/ML 1 ML VIAL IVP ONE (17:52)
[2023-07-30 18:06] LABS: Glucose,Whole Blood 126 mg/dL (70-110)
[2023-07-30 18:39] VITALS: BP 160/70; PULSE 90
--- NOTE | 2023-07-31 08:12 | FL ---
Fluoroscopy History: RENAL STONE Bilateral renal stones. Bilateral stents. 20 secs FL. 3.45 DAP.
== END 2023-07-30 18:22 | disposition home or self-care (01) ==
LOC: OR 11:37
PROVIDERS: ATTEND Urology
DX: N20.2 Calculus of kidney with calculus of ureter (principal); I10 Essential (primary) hypertension; E78.5 Hyperlipidemia, unspecified; G47.33 Obstructive sleep apnea (adult) (pediatric); J45.909 Unspecified asthma, uncomplicated; E11.9 Type 2 diabetes mellitus without complications; G40.909 Epilepsy, unspecified, not intractable, without status epilepticus; F17.210 Nicotine dependence, cigarettes, uncomplicated; Z79.85 Long-term (current) use of injectable non-insulin antidiabetic drugs; Z79.899 Other long term (current) drug therapy; Z79.51 Long term (current) use of inhaled steroids
CPT/HCPCS: 52356; 82365; 74018; C2625; C1758; C1769; J2250; J0330; J1100; J2710; J0690; J2405; J2001; J3010; J1885; J2704

== ENCOUNTER 2024-05-11 02:08 | Emergency (ER) | payer OTHER ==
[2024-05-11 02:13] VITALS: TEMP 97.9
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
[2024-05-11] MEDS: HYDROmorphone 1 MG/ML 1 ML SYRINGE IVP STA ×2 (02:41→05:24)
[2024-05-11] MEDS: KETOROLAC 15 MG/ML 1 ML VIAL IVP STA ×2 (02:43→05:21)
[2024-05-11] MEDS: ONDANSETRON 4 MG/2 ML VIAL IVP STA (02:45)
[2024-05-11 02:54] LABS: Basophils # (A) 0.1 k/uL (0-0.2); Basophils % (A) 1 %; Eosinophils # (A) 0.3 k/uL (0-0.7); Eosinophils % (A) 2 %; HCT 38.8 % (34.0-46.0); HGB 12.9 gm/dL (11.4-16.0); Lymphocytes # (A) 4.3 k/uL (1.0-4.8); Lymphocytes % (A) 27 %; MCH 27.8 pg (25.0-35.0); MCHC 33.4 g/dL (31.0-37.0); MCV 83.2 fL (80.0-100.0); Mean Platelet Volume 8.5; Monocytes # (A) 0.6 k/uL (0-1.0); Monocytes % (A) 4 %; Neutrophils # (A) 10.8 k/uL (1.3-7.7); Neutrophils % (A) 66 %; Platelet Count 393 k/uL (150-450); RBC 4.66 m/uL (3.80-5.40); RDW 15.1 % (11.5-15.5); WBC 16.3 k/uL (3.8-10.6)
[2024-05-11] MEDS: SODIUM CHLORIDE 0.9% 2,000 ML IV STA (03:01)
[2024-05-11 03:08] LABS: ALT 11 U/L (4-34); AST 20 U/L (14-36); African American GFR (CKD) 70 (>60 ml/min/1.73 sqM); Albumin 4.2 g/dL (3.5-5.0); Alkaline Phosphatase 64 U/L (38-126); Amylase 44 U/L (30-110); Anion Gap 11 mmol/L; Blood Urea Nitrogen 17 mg/dL (7-17); Calcium 10.3 mg/dL (8.4-10.2); Carbon Dioxide 23 mmol/L (22-30); Chloride 104 mmol/L (98-107); Glucose 162 mg/dL (74-99); Lipase 93 U/L (23-300); Non-African American GFR(CKD) 61 (>60 ml/min/1.73 sqM); Potassium 4.3 mmol/L (3.5-5.1); Sodium 138 mmol/L (137-145); Total Bilirubin 0.4 mg/dL (0.2-1.3); Total Protein 7.2 g/dL (6.3-8.2)
[2024-05-11 03:39] VITALS: RESP 18
--- NOTE | 2024-05-11 04:45 | CT ---
EXAM: CT Abdomen and Pelvis Without Intravenous Contrast CLINICAL HISTORY: ITS.REASON CT Reason: abdominal pain TECHNIQUE: Axial computed tomography images of the abdomen and pelvis without intravenous contrast. CTDI is 11.9 mGy and DLP is 685.2 mGy-cm. This CT exam was performed using one or more of the following dose reduction techniques: automated exposure control, adjustment of the mA and/or kV according to patient size, and/or use of iterative reconstruction technique. COMPARISON: No relevant prior studies available. FINDINGS: Limitations: Limited evaluation in the absence of contrast. Lung bases: Unremarkable. No mass. No consolidation. Mediastinum: Small esophageal hiatal hernia. ABDOMEN: Liver: Unremarkable. Gallbladder and bile ducts: Unremarkable. No calcified stones. No ductal dilation. Pancreas: Unremarkable. No ductal dilation. Spleen: Unremarkable. No splenomegaly. Adrenals: Unremarkable. No mass. Kidneys and ureters: Obstructive renal calculi within the right distal ureter. The dominant calculus is the most distal calculus measuring 5 x 5 x 8 mm. Other smaller immediate upstream calculi noted. Nonobstructive calculi in the kidneys, the largest within the inferior pole of the left kidney measuring up to 6 mm. Stomach and bowel: Unremarkable. No obstruction. No mucosal thickening. PELVIS: Appendix: Appendectomy changes. Bladder: Unremarkable. No stones. Reproductive: Unremarkable as visualized. ABDOMEN and PELVIS: Intraperitoneal space: Unremarkable. No free air. No significant fluid collection. Bones/joints: Degenerative changes in the spine. No acute fracture. No dislocation. Soft tissues: Umbilical hernia containing fat. Vasculature: Atherosclerotic disease. No abdominal aortic aneurysm. Lymph nodes: Unremarkable. No enlarged lymph nodes. IMPRESSION: 1. Obstructive renal calculi within the right distal ureter. The dominant calculus is the most distal calculus measuring 5 x 5 x 8 mm. Other smaller immediate upstream calculi noted. 2. Nonobstructive calculi in the kidneys, the largest within the inferior pole of the left kidney measuring up to 6 mm. 3. Small esophageal hiatal hernia. 4. No other acute findings. 5. Incidental findings as described.
[2024-05-11] MEDS: traMADol 50 MG STARTER PACK 3 TAB BTL PO STA (05:18)
[2024-05-11] MEDS: TAMSULOSIN 0.4 MG CAP.ER.24H PO STA (05:20)
[2024-05-11] MEDS: ONDANSETRON 4 MG ODT STARTER PACK 2 TAB BTL PO STA (05:21)
[2024-05-11] MEDS: IBUPROFEN 600 MG STARTER PACK 4 TAB BTL PO STA (05:21)
[2024-05-11] MEDS: ACET/COD 300 MG/30 MG STARTER PACK 6 TAB BTL PO STA (05:24)
[2024-05-11 05:40] VITALS: BP 141/82; PULSE 85
== END 2024-05-11 05:25 | disposition home or self-care (01) ==
LOC: EC 02:08
DX: N20.2 Calculus of kidney with calculus of ureter (principal); F17.200 Nicotine dependence, unspecified, uncomplicated; Z88.1 Allergy status to other antibiotic agents; Z88.2 Allergy status to sulfonamides; Z88.8 Allergy status to other drugs, medicaments and biological substances
CPT/HCPCS: 36415; 80053; 82150; 83690; 85025; 74176; 99284; 96374; 96375 ×2; 96376 ×2; 96361 ×2; J2405; J1171; J1885; S0119